=== PATIENT | female | born 1935 | race Caucasian/White ===

== ENCOUNTER → 2016-03-12 | Outpatient (CLI) | payer MEDICARE, OTHER ==
[~2016-03-12] MED LIST: ADALAT CC30 MG PO; APRESOLINE 25MG25 MG PO; ASPIRIN 81M81 MG/TA2 PO; ASPIRIN E.C. 8181 MG PO; CALCARB 600600 MG PO; CALCIUM500 MG PO; CARDI-OMEGA1000 MG PO; CARDIZEM CD 24240 MG PO; CENTRUM CHEWAB1 EACH PO; CENTRUM SILVER1 CTB PO; CENTRUM SILVER1 TA1 PO; CLARITIN 1010 MG/TAB PO; CLARITIN LIQUI-10 MG PO; CLEOCIN HC150 MG/CAP PO; CLEOCIN HCL300 MG PO; COMBIRESP IH; COMPLETE SENIOR1 TA1 PO; CORICCLDFLU PO; COZAAR100 MG PO; DEMADEX 20MG20 M1 PO; DESYREL 50MG50 MG PO; DIGOXIN PO; DOXYCYCLINE 10100 MG PO; FERROUS SU325 MG/TAB PO; FLONASE NASAL S16 GM NS; GABAPENTIN100 MG PO; GLUCOPHAGE1000 MG PO; GLYBURIDE MICRON6 MG PO; GLYNASE PRES-TAB6 MG PO; INSLANT SQ; K-DUR 10 MEQ T10 MEQ PO; KLOR-CON 1010 MEQ PO; LANOXIN 0.120.125 MG PO; LANTUS100 U/ML SC; LANTUS100 U/ML SQ; LASIX 20MG TABL20 MG PO; LASIX40 MG PO; LIDODERM 5% PATC1 EA TP; LIPITOR20 MG PO; LISINOPRIL40 MG PO; LOPID 600M600 MG/TAB PO; LOPID PO; LOPRESSOR100 MG PO; LYRICA 50MG CAP50 MG PO; METFORMIN1000 MG PO; MICARDIS HCT 251 TAB PO; MICARDIS80 MG PO; MOBIC15 MG PO; NEURONTIN100 MG/CAP PO; NEURONTIN300 MG/CAP PO; NOVOLOG 100U100 U/M1 SQ; NOVOLOG FLEX100 U/ML SC; OMEGA-3 FISH1000 MG PO; OYSCO 500500 M1 PO; PERCOCET 325 MG1 TA2 PO; PHILLIPS'311 MG PO; PHILLIPS1 TAB PO; POTASSIUM1 PDS PO; PREDNISONE10 MG PO; PRIL40 PO; PRILOSEC 20MG20 MG PO; PROAIR HFA0.09 MG/AC IH; PROCARDIA XL 3030 MG PO; PROCARDIA XL 6060 MG PO; Procardia XL PO; REFRESH 1 ML1 ML OP; REFRESH LIQUIGE30 ML OP; RESTASIS 60VL OP; RESTASIS0.05% OP; RT ADVAIR 128 DISKUS IH; RT ADVAIR HFA 1112 G IH; SLEEP AID25 M1 PO; ST. JOSEPH81 M2 PO; SYNTHROID0.075 MG/T PO; TEMOVATE0.05% TP; TIAZAC240 MG PO; TOPROL XL100 MG PO; TOPROL XL200 MG PO; ULTRAM 50MG TAB50 MG PO; VITAMIN D 50,1.25 MG PO; VITAMIN D32000 I1 PO; ZANTAC 150MG T150 MG PO; ZAROXOLYN5 MG PO; ZESTRIL40 MG PO; ZOCOR 20MG20 MG PO; ZOCOR20 MG PO; ZYLOPRIM 100MG100 MG PO; ZYRTEC 10MG10 MG PO; ZYRTEC5 MG PO; [UNRECOGNIZED DRUG - OTHER]; [UNRECOGNIZED DRUG - OTHER] OU; [UNRECOGNIZED DRUG - OTHER] PO
[2016-03-12 14:32] LABS: CALCIUM 9.6 mg/dL (8.4-10.2); CREATININE, serum 1.14 mg/dL (0.52-1.25); POTASSIUM 3.9 mmol/L (3.4-5.0)
== END ==
LOC: COL.LAB 13:49
PROVIDERS: Internal Medicine Nephrology
DX: N18.3 Chronic kidney disease, stage 3 (moderate) (principal)

== ENCOUNTER 2016-04-04 02:48 | Inpatient (IN) | payer MEDICARE, OTHER ==
[~2016-04-04] VITALS: Ht 160 cm; Wt 115.4 kg
[2016-04-04] VITALS (824 sets, daily range): BP systolic 103–181; BP diastolic 69–114; PULSE 75–95; TEMP 99.8–101.7; O2SAT 71–100
[~2016-04-04 02:48] MED LIST changes: -APRESOLINE 25MG25 MG PO; -ASPIRIN 81M81 MG/TA2 PO; -CLARITIN LIQUI-10 MG PO; -CLEOCIN HC150 MG/CAP PO; -CLEOCIN HCL300 MG PO; -CORICCLDFLU PO; -COZAAR100 MG PO; -DOXYCYCLINE 10100 MG PO; -KLOR-CON 1010 MEQ PO; -LIDODERM 5% PATC1 EA TP; -LOPRESSOR100 MG PO; -LYRICA 50MG CAP50 MG PO; -MICARDIS80 MG PO; -NEURONTIN300 MG/CAP PO; -NOVOLOG 100U100 U/M1 SQ; -OMEGA-3 FISH1000 MG PO; -PRIL40 PO; -PROAIR HFA0.09 MG/AC IH; -REFRESH LIQUIGE30 ML OP; -RESTASIS 60VL OP; -RT ADVAIR HFA 1112 G IH; -SYNTHROID0.075 MG/T PO; -TEMOVATE0.05% TP; -TOPROL XL200 MG PO; -ULTRAM 50MG TAB50 MG PO; -VITAMIN D 50,1.25 MG PO; -VITAMIN D32000 I1 PO; -ZAROXOLYN5 MG PO; -ZYRTEC5 MG PO
[2016-04-04 05:43] LABS: VENOUS BLOOD GAS BE 1.5 (-4-4)
[2016-04-04 05:44] LABS: VENOUS BLOOD GAS SITE VENIPUNCTURE
[2016-04-04 05:54] LABS: ARTERIAL BLD GAS O2 SATURATION 96.2 % (92-100); ARTERIAL BLD GAS TCO2 CT 25.7; ARTERIAL BLOOD GAS BASE EXCESS 0.7 (-2-2); ARTERIAL BLOOD GAS HCO3 24.6 meq/L (22-26); ARTERIAL BLOOD GAS PO2 82.9 mmHg (80-100); ARTERIAL BLOOD GAS pH 7.44 (7.35-7.45)
[2016-04-04 05:55] LABS: ALLEN TEST YES; ALLENS TEST RESULT PASS; ATS? YES
[2016-04-04 05:55] LABS: HEMATOCRIT 39.4 % (37.0-47.0); MEAN CELL VOLUME 90 fl (80.0-100.0); MEAN CORPUSCULAR HEMOGLOBIN 30 pg (27.0-31.0); MEAN CORPUSCULAR HGB CONC 33 g/dl (33.0-37.0); MEAN PLATELET VOLUME 10.7 fl (7.4-10.4); PLATELET COUNT 147 K/mm3 (130-400); RED BLOOD COUNT 4.36 M/mm3 (4.10-5.30); REDCELL DISTRIBUTION WIDTH-CV 16.2 % (11.5-14.5)
[2016-04-04 06:09] LABS: INR 1.2 (0.8-3.0); PROTHROMBIN TIME 13.6 SECONDS (9.7-12.8)
[2016-04-04 06:10] LABS: ADD PATHOLOGY DIFF REVIEW NO; WHITE BLOOD COUNT 25.1 K/mm3 (4.8-10.8)
[2016-04-04 06:11] LABS: ALANINE AMINOTRANSFERASE 39 U/L (9-52); ALBUMIN 3.7 gm/dL (3.5-5.0); ALKALINE PHOSPHATASE 113 U/L (50-136); ANION GAP 11 mmol/L (7-16); BLOOD UREA NITROGEN 20 mg/dL (7-17); CALCIUM 8.8 mg/dL (8.4-10.2); CARBON DIOXIDE 26 mmol/L (22-30); CHLORIDE 99 mmol/L (98-107); CREATININE, serum 1.19 mg/dL (0.52-1.25); GLUCOSE 287 mg/dL (74-106); POTASSIUM 3.6 mmol/L (3.4-5.0); SODIUM 136 mmol/L (137-145); TOTAL PROTEIN 7.7 gm/dL (6.4-8.2)
[2016-04-04 06:13] LABS: SALICYLATE < 1.0 mg/dL
[2016-04-04 06:26] LABS: BAND 44 % (0-10); NEUTROPHILS 43 % (42.0-75.2); PLATELET ESTIMATE NORMAL (NORMAL); TOTAL CELLS COUNTED 100
[2016-04-04 08:32] LABS: PH 5 (5-8); SQUAMOUS EPITHELIAL 0-2 /hpf; URINE APPEARANCE Hazy; URINE BACTERIA Rare /hpf; URINE BILIRUBIN Negative (NEGATIVE); URINE BLOOD 3+ (NEGATIVE); URINE COLOR Yellow; URINE GLUCOSE 1+ (NEGATIVE); URINE KETONE Negative (NEGATIVE); URINE RBC >50 /hpf; URINE UROBILINOGEN Negative (NEGATIVE); URINE WBC >50 /hpf
[2016-04-04 09:39] LABS: VENOUS BLOOD GAS BE 1.1 (-4-4); VENOUS BLOOD GAS SAO2 74.3 % (60-80)
[2016-04-04 09:40] LABS: VENOUS BLOOD GAS SITE CENTRAL LINE
[2016-04-04 13:53] LABS: VENOUS BLOOD GAS BE 0.9 (-4-4); VENOUS BLOOD GAS SAO2 72.9 % (60-80)
[2016-04-04 13:55] LABS: VENOUS BLOOD GAS SITE CENTRAL LINE
[2016-04-04 17:16] LABS: CEREBROSPINAL TUBE #4; CSF APPEARANCE CLEAR; CSF COLOR COLORLESS
[2016-04-04] MEDS ORDERED: PROAIR HFA0.09 MG/AC IH (17:39)
[2016-04-04] MEDS ORDERED: LIPITOR20 MG PO (17:39)
[2016-04-04] MEDS ORDERED: PRILOSEC 20MG20 MG PO (17:40)
[2016-04-04] MEDS ORDERED: ADALAT CC30 MG PO (17:40)
[2016-04-04] MEDS ORDERED: TEMOVATE0.05% TP (17:41)
[2016-04-04] MEDS ORDERED: OMEGA-3 FISH1000 MG PO (17:41)
[2016-04-04] MEDS ORDERED: SYNTHROID0.075 MG/T PO (17:42)
[2016-04-04] MEDS ORDERED: ZYLOPRIM 100MG100 MG PO (17:42)
[2016-04-04] MEDS ORDERED: LASIX 20MG TABL20 MG PO (17:43)
[2016-04-04] MEDS ORDERED: TOPROL XL100 MG PO (17:43)
[2016-04-04] MEDS ORDERED: RESTASIS 60VL OP (17:44)
[2016-04-04] MEDS ORDERED: REFRESH LIQUIGE30 ML OP (17:45)
[2016-04-04] MEDS ORDERED: ASPIRIN 81M81 MG/TA2 PO (17:45)
[2016-04-04] MEDS ORDERED: LIDODERM 5% PATC1 EA TP (17:45)
[2016-04-04] MEDS ORDERED: NEURONTIN300 MG/CAP PO (17:46)
[2016-04-04] MEDS ORDERED: DESYREL 50MG50 MG PO (17:46)
[2016-04-04] MEDS ORDERED: ULTRAM 50MG TAB50 MG PO (17:47)
[2016-04-04] MEDS ORDERED: APRESOLINE 25MG25 MG PO (17:47)
[2016-04-04] MEDS ORDERED: MICARDIS80 MG PO (17:47)
[2016-04-04] MEDS ORDERED: LANTUS100 U/ML SQ (17:48)
[2016-04-04] MEDS ORDERED: ZYRTEC 10MG10 MG PO (17:48)
[2016-04-04] MEDS ORDERED: NOVOLOG 100U100 U/M1 SQ (17:48)
[2016-04-04 22:34] LABS: CALCIUM 8.3 mg/dL (8.4-10.2); CREATININE, serum 1.32 mg/dL (0.52-1.25); MAGNESIUM 2.1 mg/dL (1.6-2.3); POTASSIUM 3.5 mmol/L (3.4-5.0)
[2016-04-05] VITALS (1027 sets, daily range): BP systolic 134–178; BP diastolic 65–88; PULSE 77–94; TEMP 97.8–99.8; O2SAT 81–100
[2016-04-05 06:43] LABS: MEAN CELL VOLUME 91 fl (80.0-100.0); MEAN CORPUSCULAR HGB CONC 33 g/dl (33.0-37.0); MEAN PLATELET VOLUME 11.5 fl (7.4-10.4); PLATELET COUNT 124 K/mm3 (130-400); RED BLOOD COUNT 3.31 M/mm3 (4.10-5.30); REDCELL DISTRIBUTION WIDTH-CV 16.4 % (11.5-14.5); WHITE BLOOD COUNT 18.1 K/mm3 (4.8-10.8)
[2016-04-05 06:48] LABS: ADJUSTED CALCIUM 9.3 mg/dL (8.4-10.2); ALBUMIN 2.7 gm/dL (3.5-5.0); BILIRUBIN,TOTAL 0.6 mg/dL (0.0-1.0); CALCIUM 8.3 mg/dL (8.4-10.2); CREATININE, serum 1.24 mg/dL (0.52-1.25); MAGNESIUM 2.1 mg/dL (1.6-2.3); POTASSIUM 3.4 mmol/L (3.4-5.0); TOTAL PROTEIN 6.2 gm/dL (6.4-8.2)
[2016-04-05 06:49] LABS: HEMOGLOBIN 9.8 g/dl (12.5-16.0); MEAN CORPUSCULAR HEMOGLOBIN 30 pg (27.0-31.0)
[2016-04-05 06:52] LABS: ADD PATHOLOGY DIFF REVIEW NO
[2016-04-05 07:05] LABS: INR 1.2 (0.8-3.0); PROTHROMBIN TIME 13.3 SECONDS (9.7-12.8)
[2016-04-05 07:53] LABS: ANISOCYTOSIS 1+; BAND 31 % (0-10); OVALOCYTES 1+; PLATELET ESTIMATE DECREASED (NORMAL); POLYCHROMASIA 1+
[2016-04-05 07:54] LABS: HYPOCHROMIA 1+; NEUTROPHILS 50 % (42.0-75.2); TOTAL CELLS COUNTED 100
[2016-04-05 23:17] LABS: PROT-CREAT RATIO, URINE 0.8 (())
[2016-04-06] VITALS (676 sets, daily range): BP systolic 109–177; BP diastolic 69–86; PULSE 62–96; TEMP 97–98.3; O2SAT 80–100
[2016-04-06 05:35] LABS: BASO % 0.3 % (0.0-2.0); EOS # 0.1 (0.0-0.7); EOS % 0.5 % (0-4.0); GRAN % 71.6 % (42.2-75.2); LYMPH % 15.5 % (20.0-51.0); MEAN CELL VOLUME 91 fl (80.0-100.0); MEAN CORPUSCULAR HGB CONC 33 g/dl (33.0-37.0); MEAN PLATELET VOLUME 11.3 fl (7.4-10.4); MONO # 1.5 (0.1-0.6); MONO % 11.7 % (1.7-9.3); PLATELET COUNT 133 K/mm3 (130-400); RED BLOOD COUNT 3.39 M/mm3 (4.10-5.30); REDCELL DISTRIBUTION WIDTH-CV 16.6 % (11.5-14.5); WHITE BLOOD COUNT 12.6 K/mm3 (4.8-10.8)
[2016-04-06 05:48] LABS: INR 1.1 (0.8-3.0); PROTHROMBIN TIME 12.4 SECONDS (9.7-12.8)
[2016-04-06 05:51] LABS: ADJUSTED CALCIUM 9.6 mg/dL (8.4-10.2); ALBUMIN 2.9 gm/dL (3.5-5.0); BILIRUBIN,TOTAL 0.7 mg/dL (0.0-1.0); CALCIUM 8.7 mg/dL (8.4-10.2); CREATININE, serum 1.18 mg/dL (0.52-1.25); TOTAL PROTEIN 6.5 gm/dL (6.4-8.2)
[2016-04-06 06:00] LABS: HEMATOCRIT 30.8 % (37.0-47.0); HEMOGLOBIN 10.1 g/dl (12.5-16.0); MEAN CORPUSCULAR HEMOGLOBIN 30 pg (27.0-31.0)
[2016-04-06 06:43] LABS: C-REACTIVE PROTEIN 12.7 mg/dL (0.0-0.9)
[2016-04-06 14:28] LABS: ALBUMIN FRACTION 2.4 g/dL (2.6-4.5); ALBUMIN PERCENTAGE 45.2 % (48.7-61.8); ALPHA 1 FRACTION 0.4 g/dL (0.3-0.5); ALPHA 1 PERCENTAGE 6.9 % (3.4-8.3); ALPHA 2 FRACTION 0.9 g/dL (0.6-1.2); ALPHA 2 PERCENTAGE 16.2 % (8.4-17.5); BETA 1 FRACTION 0.3 g/dL (0.4-0.6); BETA 1 PERCENTAGE 4.9 % (5.4-8.9); BETA 2 FRACTION 0.5 g/dL (0.2-0.5); BETA 2 PERCENTAGE 8.4 % (3.8-7.7); GAMMA PERCENTAGE 18.4 % (8.1-23.0); SERUM PROTEIN TOTAL 5.4 g/dL (6.0-7.6)
[2016-04-07] VITALS (876 sets, daily range): BP systolic 147–186; BP diastolic 71–99; PULSE 79–94; TEMP 97.8–99.4; O2SAT 70–100
[2016-04-07 05:05] LABS: BASO # 0.1 (0.0-0.2); BASO % 0.5 % (0.0-2.0); EOS # 0.4 (0.0-0.7); EOS % 3.7 % (0-4.0); GRAN # 5.7 (1.4-6.5); GRAN % 52.4 % (42.2-75.2); LYMPH # 3.4 (1.2-3.4); LYMPH % 30.9 % (20.0-51.0); MEAN CELL VOLUME 90 fl (80.0-100.0); MEAN CORPUSCULAR HGB CONC 33 g/dl (33.0-37.0); MEAN PLATELET VOLUME 10.8 fl (7.4-10.4); MONO # 1.2 (0.1-0.6); PLATELET COUNT 136 K/mm3 (130-400); RED BLOOD COUNT 3.52 M/mm3 (4.10-5.30); REDCELL DISTRIBUTION WIDTH-CV 16.6 % (11.5-14.5); WHITE BLOOD COUNT 10.9 K/mm3 (4.8-10.8)
[2016-04-07 05:06] LABS: HEMATOCRIT 31.8 % (37.0-47.0); HEMOGLOBIN 10.5 g/dl (12.5-16.0); MEAN CORPUSCULAR HEMOGLOBIN 30 pg (27.0-31.0)
[2016-04-07 05:09] LABS: PROTHROMBIN TIME 11.4 SECONDS (9.7-12.8)
[2016-04-07 05:15] LABS: ADJUSTED CALCIUM 9.7 mg/dL (8.4-10.2); ALBUMIN 2.9 gm/dL (3.5-5.0); BILIRUBIN,TOTAL 0.7 mg/dL (0.0-1.0); CALCIUM 8.8 mg/dL (8.4-10.2); CREATININE, serum 0.99 mg/dL (0.52-1.25); POTASSIUM 3.6 mmol/L (3.4-5.0); TOTAL PROTEIN 6.3 gm/dL (6.4-8.2)
[2016-04-08 04:38] VITALS: BP 188/95; PULSE 86; TEMP 98.6
[2016-04-08 06:13] LABS: MEAN CELL VOLUME 91 fl (80.0-100.0); MEAN CORPUSCULAR HGB CONC 33 g/dl (33.0-37.0); MEAN PLATELET VOLUME 10.9 fl (7.4-10.4); PLATELET COUNT 169 K/mm3 (130-400); RED BLOOD COUNT 3.73 M/mm3 (4.10-5.30); REDCELL DISTRIBUTION WIDTH-CV 15.9 % (11.5-14.5); WHITE BLOOD COUNT 11.3 K/mm3 (4.8-10.8)
[2016-04-08 06:25] LABS: CALCIUM 8.9 mg/dL (8.4-10.2); CREATININE, serum 0.89 mg/dL (0.52-1.25); HEMATOCRIT 33.8 % (37.0-47.0); HEMOGLOBIN 11.2 g/dl (12.5-16.0); MEAN CORPUSCULAR HEMOGLOBIN 30 pg (27.0-31.0); POTASSIUM 3.6 mmol/L (3.4-5.0)
[2016-04-08 06:26] LABS: ADD PATHOLOGY DIFF REVIEW NO
[2016-04-08 07:08] LABS: BAND 5 % (0-10); BASOPHIL 1 % (0-2); EOSINOPHIL 4 % (0-4); MYELOCYTE 1 % (0-0); NEUTROPHILS 48 % (42.0-75.2); PLATELET ESTIMATE NORMAL (NORMAL); TOTAL CELLS COUNTED 100
[2016-04-08 09:03] VITALS: BP 183/96; PULSE 91; TEMP 98.2
[2016-04-08 11:34] VITALS: BP 184/76; PULSE 87
[2016-04-08 16:00] VITALS: BP 189/76; PULSE 99; TEMP 98.4
[2016-04-08 19:34] VITALS: BP 162/93; BP 192/84; PULSE 101; TEMP 98.8
[2016-04-09 06:04] VITALS: BP 171/65; PULSE 87; TEMP 97.6
[2016-04-09 06:06] VITALS: BP 152/50; PULSE 78; TEMP 98.8
[2016-04-09 07:55] LABS: MEAN CELL VOLUME 89 fl (80.0-100.0); MEAN CORPUSCULAR HGB CONC 33 g/dl (33.0-37.0); MEAN PLATELET VOLUME 10.9 fl (7.4-10.4); PLATELET COUNT 194 K/mm3 (130-400); RED BLOOD COUNT 3.67 M/mm3 (4.10-5.30); REDCELL DISTRIBUTION WIDTH-CV 15.9 % (11.5-14.5); WHITE BLOOD COUNT 14.5 K/mm3 (4.8-10.8)
[2016-04-09 07:56] LABS: HEMATOCRIT 32.6 % (37.0-47.0); HEMOGLOBIN 10.9 g/dl (12.5-16.0); MEAN CORPUSCULAR HEMOGLOBIN 30 pg (27.0-31.0)
[2016-04-09 07:57] LABS: ADD PATHOLOGY DIFF REVIEW NO
[2016-04-09 08:07] LABS: CREATININE, serum 0.84 mg/dL (0.52-1.25); POTASSIUM 3.5 mmol/L (3.4-5.0)
[2016-04-09 08:09] LABS: BAND 6 % (0-10); EOSINOPHIL 6 % (0-4); NEUTROPHILS 39 % (42.0-75.2); PLATELET ESTIMATE NORMAL (NORMAL); TOTAL CELLS COUNTED 100
[2016-04-09 11:58] VITALS: BP 149/63; PULSE 73; TEMP 98
[2016-04-09 14:38] LABS: WEST NILE VIRUS IGG PCR CSF Negative (Negative)
[2016-04-09 16:57] VITALS: BP 155/77; PULSE 85; TEMP 98.3
[2016-04-09 20:58] VITALS: BP 160/72; PULSE 97; TEMP 98.8
[2016-04-09 23:23] LABS: HOURS 24 Hr (()); VOLUME 2350 mL (())
[2016-04-10 00:14] VITALS: BP 157/69; PULSE 69; TEMP 97.5
[2016-04-10 04:47] VITALS: BP 150/75; PULSE 68; TEMP 98.5
[2016-04-10 07:15] LABS: MEAN CELL VOLUME 89 fl (80.0-100.0); MEAN CORPUSCULAR HGB CONC 34 g/dl (33.0-37.0); MEAN PLATELET VOLUME 11.2 fl (7.4-10.4); PLATELET COUNT 220 K/mm3 (130-400); RED BLOOD COUNT 3.69 M/mm3 (4.10-5.30); REDCELL DISTRIBUTION WIDTH-CV 16.1 % (11.5-14.5); WHITE BLOOD COUNT 15.9 K/mm3 (4.8-10.8)
[2016-04-10 07:28] LABS: ADD PATHOLOGY DIFF REVIEW NO; HEMATOCRIT 32.8 % (37.0-47.0); MEAN CORPUSCULAR HEMOGLOBIN 30 pg (27.0-31.0)
[2016-04-10 07:54] VITALS: BP 161/63; PULSE 78; TEMP 98.3
[2016-04-10 09:01] LABS: BAND 9 % (0-10); BASOPHIL 1 % (0-2); EOSINOPHIL 5 % (0-4); NEUTROPHILS 43 % (42.0-75.2); TOTAL CELLS COUNTED 100
[2016-04-10 09:02] LABS: PLATELET ESTIMATE NORMAL (NORMAL)
[2016-04-10 10:56] LABS: PH 7 (5-8); URINE APPEARANCE Clear; URINE BACTERIA None Seen /hpf; URINE BILIRUBIN Negative (NEGATIVE); URINE BLOOD 1+ (NEGATIVE); URINE COLOR Yellow; URINE GLUCOSE Negative (NEGATIVE); URINE KETONE Negative (NEGATIVE); URINE UROBILINOGEN Negative (NEGATIVE); URINE WBC 0-2 /hpf
[2016-04-10] MEDS ORDERED: DESYREL 50MG50 MG PO (11:21)
[2016-04-10 11:57] VITALS: BP 149/52; PULSE 71; TEMP 98.3
[2016-04-10 17:32] VITALS: BP 155/70; PULSE 77; TEMP 98.4
[2016-04-10 20:33] VITALS: BP 157/61; PULSE 79; TEMP 97.5
[2016-04-11 00:22] VITALS: BP 155/74; PULSE 84; TEMP 98.6
[2016-04-11 06:04] VITALS: BP 154/62; PULSE 64; TEMP 97.5
[2016-04-11 07:22] LABS: HEMATOCRIT 32.1 % (37.0-47.0); HEMOGLOBIN 10.6 g/dl (12.5-16.0); MEAN CELL VOLUME 90 fl (80.0-100.0); MEAN CORPUSCULAR HEMOGLOBIN 30 pg (27.0-31.0); MEAN CORPUSCULAR HGB CONC 33 g/dl (33.0-37.0); MEAN PLATELET VOLUME 11.3 fl (7.4-10.4); PLATELET COUNT 224 K/mm3 (130-400); RED BLOOD COUNT 3.57 M/mm3 (4.10-5.30); REDCELL DISTRIBUTION WIDTH-CV 15.8 % (11.5-14.5); WHITE BLOOD COUNT 12.4 K/mm3 (4.8-10.8)
[2016-04-11 07:23] LABS: ADD PATHOLOGY DIFF REVIEW NO
[2016-04-11 07:31] LABS: CALCIUM 8.9 mg/dL (8.4-10.2); CREATININE, serum 0.93 mg/dL (0.52-1.25); POTASSIUM 3.7 mmol/L (3.4-5.0)
[2016-04-11 07:33] VITALS: BP 154/55; PULSE 73; TEMP 98.2
[2016-04-11 08:46] LABS: BAND 6 % (0-10); EOSINOPHIL 5 % (0-4); METAMYELOCYTE 2 % (0-0); NEUTROPHILS 42 % (42.0-75.2); TOTAL CELLS COUNTED 100
[2016-04-11] MEDS ORDERED: CLEOCIN HCL300 MG PO (11:17)
[2016-04-11] MEDS ORDERED: LOPRESSOR100 MG PO (11:18)
[2016-04-11] MEDS ORDERED: PROCARDIA XL 6060 MG PO (11:18)
[2016-04-11] MEDS ORDERED: COZAAR100 MG PO (11:19)
[2016-04-11] MEDS ORDERED: LYRICA 50MG CAP50 MG PO (11:21)
[2016-04-11 13:34] VITALS: BP 140/47; PULSE 72; TEMP 98.1
[2016-04-11 14:06] LABS: URINE ALPHA 1 % 11.9 % (()); URINE ALPHA 2 % 9.6 % (()); URINE BETA % 12.5 % (()); URINE GAMMA % 17.5 % (())
[2016-04-11 16:24] VITALS: BP 158/67; PULSE 77; TEMP 98.1
[2016-04-20 10:18] LABS: KAPPA FREE LIGHT CHAIN-URINE 4.8 (()); LAMBDA FREE LIGHT CHAIN-URINE 1.92 (())
== END 2016-04-11 17:24 | DRG 872 ==
LOC: IMCU 02:48 → ICU 03:55 → MEDICAL 04-07 14:55
PROVIDERS: Anesthesiology Critical Care Medicine; Internal Medicine; Internal Medicine Infectious Disease; Internal Medicine Nephrology; Physician Assistant; Psychiatry & Neurology Neurology
PROC: 009U3ZX Drainage of Spinal Canal, Percutaneous Approach, Diagnostic (ICD-10-PCS; principal; 2016-04-04)
DX: A41.9 Sepsis, unspecified organism (principal); L03.115 Cellulitis of right lower limb; L03.116 Cellulitis of left lower limb; Z68.41 Body mass index [BMI] 40.0-44.9, adult; N17.9 Acute kidney failure, unspecified; N39.0 Urinary tract infection, site not specified; I16.0 Hypertensive urgency; I12.9 Hypertensive chronic kidney disease with stage 1 through stage 4 chronic kidney disease, or unspecified chronic kidney disease; E11.22 Type 2 diabetes mellitus with diabetic chronic kidney disease; N18.3 Chronic kidney disease, stage 3 (moderate); J44.9 Chronic obstructive pulmonary disease, unspecified; E11.65 Type 2 diabetes mellitus with hyperglycemia; E11.42 Type 2 diabetes mellitus with diabetic polyneuropathy; E66.01 Morbid (severe) obesity due to excess calories; I27.2 Other secondary pulmonary hypertension; G47.33 Obstructive sleep apnea (adult) (pediatric); I87.8 Other specified disorders of veins
CPT/HCPCS: 99223-AI; 99232-AI; 99233-AI; 99239; A9503; A9585; C1751; J0360; J0696; J1170; J1644; J1720; J1815; J1885; J1956; J2060; J2405; J3370; J3480; J7030; J7050

== ENCOUNTER 2016-04-11 16:25 | Inpatient (IN) | payer MEDICARE, OTHER ==
[~2016-04-11] VITALS: Ht 160 cm; Wt 111.3 kg
[~2016-04-11 16:25] MED LIST changes: +APRESOLINE 25MG25 MG PO; +ASPIRIN 81M81 MG/TA2 PO; +CLEOCIN HCL300 MG PO; +COZAAR100 MG PO; +LIDODERM 5% PATC1 EA TP; +LOPRESSOR100 MG PO; +LYRICA 50MG CAP50 MG PO; +MICARDIS80 MG PO; +NEURONTIN300 MG/CAP PO; +NOVOLOG 100U100 U/M1 SQ; +OMEGA-3 FISH1000 MG PO; +PROAIR HFA0.09 MG/AC IH; +REFRESH LIQUIGE30 ML OP; +RESTASIS 60VL OP; +SYNTHROID0.075 MG/T PO; +TEMOVATE0.05% TP; +ULTRAM 50MG TAB50 MG PO
[2016-04-11 18:14] VITALS: BP 158/67; PULSE 77; TEMP 98.1
[2016-04-12 04:45] VITALS: BP 135/47; PULSE 63; TEMP 97.1
[2016-04-12 16:31] VITALS: BP 145/50; PULSE 66; TEMP 98.7
[2016-04-13 06:03] VITALS: BP 128/65; PULSE 63; TEMP 98
[2016-04-14 04:12] VITALS: BP 146/56; PULSE 76; TEMP 97.5
[2016-04-14 16:55] VITALS: BP 141/61; PULSE 77; TEMP 98.9
[2016-04-15 05:04] VITALS: BP 129/41; PULSE 63; TEMP 98.2
[2016-04-15 19:55] VITALS: BP 141/61; PULSE 79; TEMP 97.5
[2016-04-16 04:54] VITALS: BP 134/52; PULSE 74; TEMP 98.2
[2016-04-16 08:06] LABS: BASO # 0.1 (0.0-0.2); BASO % 0.8 % (0.0-2.0); EOS # 0.4 (0.0-0.7); EOS % 4.1 % (0-4.0); GRAN # 4.4 (1.4-6.5); GRAN % 46.4 % (42.2-75.2); LYMPH # 3.6 (1.2-3.4); LYMPH % 37.5 % (20.0-51.0); MEAN CELL VOLUME 93 fl (80.0-100.0); MEAN CORPUSCULAR HGB CONC 32 g/dl (33.0-37.0); MEAN PLATELET VOLUME 11.3 fl (7.4-10.4); MONO % 10.8 % (1.7-9.3); PLATELET COUNT 268 K/mm3 (130-400); RED BLOOD COUNT 3.66 M/mm3 (4.10-5.30); REDCELL DISTRIBUTION WIDTH-CV 15.6 % (11.5-14.5); WHITE BLOOD COUNT 9.6 K/mm3 (4.8-10.8)
[2016-04-16 08:11] LABS: HEMATOCRIT 34.1 % (37.0-47.0); HEMOGLOBIN 10.9 g/dl (12.5-16.0); MEAN CORPUSCULAR HEMOGLOBIN 30 pg (27.0-31.0)
[2016-04-16 08:53] LABS: CALCIUM 9.6 mg/dL (8.4-10.2); CREATININE, serum 1.27 mg/dL (0.52-1.25); POTASSIUM 4.1 mmol/L (3.4-5.0)
[2016-04-16 16:27] VITALS: BP 151/57; PULSE 79; TEMP 98.1
[2016-04-17 06:16] VITALS: BP 134/51; PULSE 68; TEMP 97.7
[2016-04-17 16:31] VITALS: BP 120/95; PULSE 58; TEMP 97.5
[2016-04-18 05:27] VITALS: BP 101/74; PULSE 75; TEMP 98.2
[2016-04-18 15:32] VITALS: BP 141/50; PULSE 76; TEMP 97.5
[2016-04-19 06:12] VITALS: BP 139/51; PULSE 56; TEMP 97.6
[2016-04-19 13:07] VITALS: BP 105/72; PULSE 59
[2016-04-19 16:42] VITALS: BP 116/94; PULSE 74; TEMP 97.6
[2016-04-20 04:25] VITALS: BP 127/43; PULSE 66; TEMP 98.5
[2016-04-20 16:10] VITALS: BP 148/45; PULSE 60; TEMP 97.6
== END 2016-04-20 16:51 | disposition home or self-care (01) | DRG 947 ==
PROVIDERS: Internal Medicine
DX: R53.81 Other malaise (principal); A41.9 Sepsis, unspecified organism; Z68.41 Body mass index [BMI] 40.0-44.9, adult; L03.116 Cellulitis of left lower limb; L03.115 Cellulitis of right lower limb; E66.01 Morbid (severe) obesity due to excess calories; J44.9 Chronic obstructive pulmonary disease, unspecified; I12.9 Hypertensive chronic kidney disease with stage 1 through stage 4 chronic kidney disease, or unspecified chronic kidney disease; E11.22 Type 2 diabetes mellitus with diabetic chronic kidney disease; N18.9 Chronic kidney disease, unspecified
CPT/HCPCS: 99222-AI; 99232-AI; 99239; J1644; J1650; J1815

== ENCOUNTER 2016-04-22 15:09 | Inpatient (IN) | payer MEDICARE, OTHER ==
[~2016-04-22] VITALS: Ht 160 cm; Wt 114.9 kg
[2016-04-22] MEDS ORDERED: RT ADVAIR HFA 1112 G IH (15:51)
[2016-04-22] MEDS ORDERED: TOPROL XL100 MG PO (15:55)
[2016-04-22] MEDS ORDERED: COMPLETE SENIOR1 TA1 PO ×2 (16:03→16:04)
[2016-04-22] MEDS ORDERED: CORICCLDFLU PO (16:04)
[2016-04-22] MEDS ORDERED: PHILLIPS'311 MG PO (16:05)
[2016-04-22 16:12] LABS: BASO # 0.1 (0.0-0.2); BASO % 0.9 % (0.0-2.0); EOS # 0.1 (0.0-0.7); EOS % 1.1 % (0-4.0); GRAN # 7.9 (1.4-6.5); LYMPH # 0.9 (1.2-3.4); LYMPH % 9.1 % (20.0-51.0); MEAN CELL VOLUME 92 fl (80.0-100.0); MEAN CORPUSCULAR HGB CONC 32 g/dl (33.0-37.0); MEAN PLATELET VOLUME 11.1 fl (7.4-10.4); MONO # 0.7 (0.1-0.6); MONO % 6.7 % (1.7-9.3); PLATELET COUNT 244 K/mm3 (130-400); RED BLOOD COUNT 3.99 M/mm3 (4.10-5.30); REDCELL DISTRIBUTION WIDTH-CV 15.3 % (11.5-14.5); WHITE BLOOD COUNT 9.7 K/mm3 (4.8-10.8)
[2016-04-22 16:15] LABS: HEMATOCRIT 36.8 % (37.0-47.0); HEMOGLOBIN 11.9 g/dl (12.5-16.0); MEAN CORPUSCULAR HEMOGLOBIN 30 pg (27.0-31.0)
[2016-04-22 16:25] LABS: INFLUENZA B NEGATIVE
[2016-04-22 16:46] LABS: ADJUSTED CALCIUM 9.7 mg/dL (8.4-10.2); ALANINE AMINOTRANSFERASE 26 U/L (9-52); ALBUMIN 4.1 gm/dL (3.5-5.0); ALKALINE PHOSPHATASE 122 U/L (50-136); ANION GAP 14 mmol/L (7-16); BILIRUBIN,TOTAL 0.9 mg/dL (0.0-1.0); BLOOD UREA NITROGEN 51 mg/dL (7-17); CALCIUM 9.8 mg/dL (8.4-10.2); CARBON DIOXIDE 26 mmol/L (22-30); CHLORIDE 101 mmol/L (98-107); CREATININE, serum 1.31 mg/dL (0.52-1.25); GLUCOSE 138 mg/dL (74-106); POTASSIUM 4.9 mmol/L (3.4-5.0); SODIUM 141 mmol/L (137-145); TOTAL PROTEIN 8.9 gm/dL (6.4-8.2)
[2016-04-22 16:47] LABS: C-REACTIVE PROTEIN < 0.5 mg/dL (0.0-0.9)
[2016-04-22 16:58] LABS: PH 6 (5-8); SQUAMOUS EPITHELIAL 0-2 /hpf; URINE APPEARANCE Clear; URINE BACTERIA None Seen /hpf; URINE BILIRUBIN Negative (NEGATIVE); URINE BLOOD 2+ (NEGATIVE); URINE COLOR Yellow; URINE GLUCOSE Negative (NEGATIVE); URINE KETONE Negative (NEGATIVE); URINE RBC 20-50 /hpf; URINE UROBILINOGEN Negative (NEGATIVE); URINE WBC 0-2 /hpf
[2016-04-22 18:18] VITALS: BP 141/59; PULSE 80; TEMP 99.9
[2016-04-22 20:20] LABS: B-TYPE NATRIURETIC PEPTIDE 323 pg/mL (0-450)
[2016-04-22 20:40] VITALS: BP 140/48; PULSE 77; TEMP 100.9
[2016-04-22] MEDS ORDERED: NEURONTIN300 MG/CAP PO (21:33)
[2016-04-23] VITALS (8 sets, daily range): BP systolic 91–154; BP diastolic 46–78; PULSE 64–87; TEMP 98.4–100
[2016-04-23 07:25] LABS: CALCIUM 9.1 mg/dL (8.4-10.2); CREATININE, serum 1.02 mg/dL (0.52-1.25); POTASSIUM 4.2 mmol/L (3.4-5.0)
[2016-04-23 07:39] LABS: BASO # 0.1 (0.0-0.2); EOS % 0.2 % (0-4.0); GRAN # 3.9 (1.4-6.5); GRAN % 63.4 % (42.2-75.2); HEMATOCRIT 35.7 % (37.0-47.0); HEMOGLOBIN 11.6 g/dl (12.5-16.0); LYMPH # 1.4 (1.2-3.4); LYMPH % 23.3 % (20.0-51.0); MEAN CELL VOLUME 92 fl (80.0-100.0); MEAN CORPUSCULAR HEMOGLOBIN 30 pg (27.0-31.0); MEAN CORPUSCULAR HGB CONC 33 g/dl (33.0-37.0); MEAN PLATELET VOLUME 11.7 fl (7.4-10.4); MONO # 0.7 (0.1-0.6); MONO % 11.6 % (1.7-9.3); PLATELET COUNT 189 K/mm3 (130-400); RED BLOOD COUNT 3.89 M/mm3 (4.10-5.30); REDCELL DISTRIBUTION WIDTH-CV 15.3 % (11.5-14.5); WHITE BLOOD COUNT 6.1 K/mm3 (4.8-10.8)
[2016-04-24 04:10] VITALS: BP 145/46; PULSE 73; TEMP 93.8
[2016-04-24 07:32] VITALS: BP 143/59; PULSE 66; TEMP 97.9
[2016-04-24 11:59] VITALS: BP 155/66; PULSE 79; TEMP 97.2
[2016-04-24 16:10] VITALS: BP 150/48; PULSE 83; TEMP 98.4
[2016-04-24 19:17] VITALS: BP 150/66; PULSE 79; TEMP 97.9
[2016-04-24 22:35] VITALS: BP 149/52; PULSE 67; TEMP 98.3
[2016-04-25] VITALS (10 sets, daily range): BP systolic 147–173; BP diastolic 55–83; PULSE 63–87; TEMP 97.9–98.6
[2016-04-26 01:32] VITALS: BP 168/63; PULSE 68; TEMP 98.1
[2016-04-26 05:42] VITALS: BP 171/67; PULSE 78; TEMP 97.5
[2016-04-26 08:43] VITALS: BP 148/56; PULSE 66; TEMP 97.5
[2016-04-26 11:57] VITALS: BP 119/81; PULSE 66; TEMP 98
== END 2016-04-26 13:45 | disposition home or self-care (01) | DRG 864 ==
LOC: COL.ER 15:09 → MEDICAL 17:39
PROVIDERS: Emergency Medicine; Nurse Practitioner Family
DX: R50.9 Fever, unspecified (principal); Z68.42 Body mass index [BMI] 45.0-49.9, adult; N17.9 Acute kidney failure, unspecified; E66.01 Morbid (severe) obesity due to excess calories; I83.015 Varicose veins of right lower extremity with ulcer other part of foot; J44.9 Chronic obstructive pulmonary disease, unspecified; I12.9 Hypertensive chronic kidney disease with stage 1 through stage 4 chronic kidney disease, or unspecified chronic kidney disease; E11.22 Type 2 diabetes mellitus with diabetic chronic kidney disease; N18.9 Chronic kidney disease, unspecified; Z79.4 Long term (current) use of insulin; E86.0 Dehydration; D63.1 Anemia in chronic kidney disease
CPT/HCPCS: 99223-AI; 99232-AI; 99233-AI; 99239; J0692; J1644; J1815; J2704; J3370; J7030; J7050

== ENCOUNTER → 2016-06-06 | Outpatient (CLI) | payer MEDICARE, OTHER ==
[~2016-06-06] MED LIST changes: +CLARITIN LIQUI-10 MG PO; +CLEOCIN HC150 MG/CAP PO; +CORICCLDFLU PO; +DOXYCYCLINE 10100 MG PO; +KLOR-CON 1010 MEQ PO; +PRIL40 PO; +RT ADVAIR HFA 1112 G IH; +TOPROL XL200 MG PO; +VITAMIN D 50,1.25 MG PO; +VITAMIN D32000 I1 PO; +ZAROXOLYN5 MG PO; +ZYRTEC5 MG PO
== END ==
LOC: COL.LAB 15:37
DX: Z53.9 Procedure and treatment not carried out, unspecified reason (principal)

== ENCOUNTER 2016-06-23 15:05 | Emergency (ER) | payer MEDICARE, OTHER ==
[~2016-06-23] VITALS: Ht 160 cm; Wt 109.1 kg
[~2016-06-23 15:05] MED LIST changes: -CLARITIN LIQUI-10 MG PO; -CLEOCIN HC150 MG/CAP PO; -DOXYCYCLINE 10100 MG PO; -KLOR-CON 1010 MEQ PO; -PRIL40 PO; -TOPROL XL200 MG PO; -VITAMIN D 50,1.25 MG PO; -VITAMIN D32000 I1 PO; -ZAROXOLYN5 MG PO; -ZYRTEC5 MG PO
[2016-06-23 15:06] VITALS: TEMP 98.2
[2016-06-23 16:10] LABS: BASO # 0.1 (0.0-0.2); BASO % 0.3 % (0.0-2.0); EOS # 0.2 (0.0-0.7); EOS % 1.2 % (0-4.0); GRAN # 11.9 (1.4-6.5); GRAN % 69.2 % (42.2-75.2); LYMPH # 3.3 (1.2-3.4); LYMPH % 18.9 % (20.0-51.0); MEAN CELL VOLUME 91 fl (80.0-100.0); MEAN CORPUSCULAR HGB CONC 33 g/dl (33.0-37.0); MEAN PLATELET VOLUME 10.9 fl (7.4-10.4); MONO # 1.7 (0.1-0.6); MONO % 10.1 % (1.7-9.3); PLATELET COUNT 178 K/mm3 (130-400); RED BLOOD COUNT 3.84 M/mm3 (4.10-5.30); REDCELL DISTRIBUTION WIDTH-CV 17.1 % (11.5-14.5); WHITE BLOOD COUNT 17.2 K/mm3 (4.8-10.8)
[2016-06-23 16:19] LABS: ADJUSTED CALCIUM 9.2 mg/dL (8.4-10.2); ALBUMIN 4.1 gm/dL (3.5-5.0); BILIRUBIN,TOTAL 0.9 mg/dL (0.0-1.0); C-REACTIVE PROTEIN 8.5 mg/dL (0.0-0.9); CALCIUM 9.3 mg/dL (8.4-10.2); CREATININE, serum 2.01 mg/dL (0.52-1.25); POTASSIUM 4.7 mmol/L (3.4-5.0)
[2016-06-23 16:20] LABS: HEMATOCRIT 34.8 % (37.0-47.0); HEMOGLOBIN 11.5 g/dl (12.5-16.0); MEAN CORPUSCULAR HEMOGLOBIN 30 pg (27.0-31.0)
[2016-06-23 17:05] VITALS: BP 136/58; PULSE 80
[2016-06-23] MEDS ORDERED: CLEOCIN HCL300 MG PO (17:24)
== END 2016-06-23 17:05 | disposition home or self-care (01) ==
LOC: COL.ER 15:05
PROVIDERS: Family Medicine
DX: L03.115 Cellulitis of right lower limb (principal); E11.22 Type 2 diabetes mellitus with diabetic chronic kidney disease; N18.9 Chronic kidney disease, unspecified; Z86.718 Personal history of other venous thrombosis and embolism; Z79.82 Long term (current) use of aspirin; Z79.4 Long term (current) use of insulin

== ENCOUNTER → 2016-07-13 | Outpatient (CLI) | payer MEDICARE, OTHER ==
[~2016-07-13] MED LIST changes: +CLARITIN LIQUI-10 MG PO; +CLEOCIN HC150 MG/CAP PO; +DOXYCYCLINE 10100 MG PO; +KLOR-CON 1010 MEQ PO; +PRIL40 PO; +TOPROL XL200 MG PO; +VITAMIN D 50,1.25 MG PO; +VITAMIN D32000 I1 PO; +ZAROXOLYN5 MG PO; +ZYRTEC5 MG PO
== END ==
LOC: MHCPAIN 11:25
DX: G89.29 Other chronic pain (principal); M47.817 Spondylosis without myelopathy or radiculopathy, lumbosacral region; M53.3 Sacrococcygeal disorders, not elsewhere classified; M50.90 Cervical disc disorder, unspecified, unspecified cervical region; M41.9 Scoliosis, unspecified
CPT/HCPCS: G0463

== ENCOUNTER → 2016-08-02 | Outpatient (REF) ==
[2016-08-02 13:54] LABS: CALCIUM 8.5 mg/dL (8.4-10.2); CREATININE, serum 1.49 mg/dL (0.52-1.25); POTASSIUM 3.8 mmol/L (3.4-5.0)
== END ==
LOC: ZMSC 12:47
PROVIDERS: Internal Medicine Nephrology
DX: Z01.89 Encounter for other specified special examinations (principal)

== ENCOUNTER → 2016-08-13 | Outpatient (CLI) | payer MEDICARE, OTHER ==
[2016-08-13 16:19] LABS: CALCIUM 8.7 mg/dL (8.4-10.2); CREATININE, serum 1.92 mg/dL (0.52-1.25); POTASSIUM 4.2 mmol/L (3.4-5.0)
== END ==
LOC: COL.LAB 14:53
PROVIDERS: Internal Medicine Pulmonary Disease
DX: I27.2 Other secondary pulmonary hypertension (principal)
CPT/HCPCS: J1644

== ENCOUNTER 2016-08-28 04:43 | Inpatient (IN) | payer MEDICARE, OTHER ==
[~2016-08-28] VITALS: Ht 160 cm; Wt 118.2 kg
[~2016-08-28 04:43] MED LIST changes: -CLARITIN LIQUI-10 MG PO; -CLEOCIN HC150 MG/CAP PO; -DOXYCYCLINE 10100 MG PO; -KLOR-CON 1010 MEQ PO; -PRIL40 PO; -TOPROL XL200 MG PO; -VITAMIN D 50,1.25 MG PO; -VITAMIN D32000 I1 PO; -ZAROXOLYN5 MG PO; -ZYRTEC5 MG PO
[2016-08-28 06:05] VITALS: BP 109/56; PULSE 73; TEMP 98.7
[2016-08-28] MEDS ORDERED: NEURONTIN300 MG/CAP PO (08:22)
[2016-08-28] MEDS ORDERED: VITAMIN D 50,1.25 MG PO (08:29)
[2016-08-28] MEDS ORDERED: ZAROXOLYN5 MG PO (08:29)
[2016-08-28] MEDS ORDERED: KLOR-CON 1010 MEQ PO (08:30)
[2016-08-28 09:05] LABS: MEAN CELL VOLUME 94 fl (80.0-100.0); MEAN CORPUSCULAR HGB CONC 33 g/dl (33.0-37.0); MEAN PLATELET VOLUME 11.5 fl (7.4-10.4); PLATELET COUNT 141 K/mm3 (130-400); RED BLOOD COUNT 3.63 M/mm3 (4.10-5.30); REDCELL DISTRIBUTION WIDTH-CV 15.4 % (11.5-14.5)
[2016-08-28 09:08] LABS: HEMATOCRIT 34.1 % (37.0-47.0); HEMOGLOBIN 11.2 g/dl (12.5-16.0); MEAN CORPUSCULAR HEMOGLOBIN 31 pg (27.0-31.0); WHITE BLOOD COUNT 23.2 K/mm3 (4.8-10.8)
[2016-08-28 09:09] LABS: ADD PATHOLOGY DIFF REVIEW NO
[2016-08-28 09:14] LABS: CALCIUM 9.1 mg/dL (8.4-10.2); CREATININE, serum 2.28 mg/dL (0.52-1.25); POTASSIUM 4.2 mmol/L (3.4-5.0)
[2016-08-28 09:50] LABS: BAND 21 % (0-10); NEUTROPHILS 72 % (42.0-75.2); TOTAL CELLS COUNTED 100
[2016-08-28 09:51] LABS: PLATELET ESTIMATE DECREASED (NORMAL)
[2016-08-28 11:36] VITALS: BP 133/98; PULSE 67; TEMP 98.9
[2016-08-28] MEDS ORDERED: PROCARDIA XL 3030 MG PO (14:42)
[2016-08-28 15:31] VITALS: BP 154/60; PULSE 76; TEMP 97.8
[2016-08-28 18:41] LABS: ARTERIAL BLD GAS O2 SATURATION 96.3 % (92-100); ARTERIAL BLD GAS TCO2 CT 41.4; ARTERIAL BLOOD GAS BASE EXCESS 15.4 (-2-2); ARTERIAL BLOOD GAS HCO3 39.9 meq/L (22-26); ARTERIAL BLOOD GAS PHT 7.54 C (7.35-7.45); ARTERIAL BLOOD GAS PO2 84.7 mmHg (80-100); ARTERIAL BLOOD GAS PO2T 84.7 (80-100); ARTERIAL BLOOD GAS pH 7.54 (7.35-7.45); OXYHEMOGLOBIN 95.5 %
[2016-08-28 18:42] LABS: ALLEN TEST YES; ALLENS TEST RESULT PASS; ATS? YES
[2016-08-28 21:33] VITALS: BP 167/78; PULSE 83; TEMP 98.6
[2016-08-29] VITALS: BP 158/85; PULSE 88; TEMP 98.8
[2016-08-29 02:56] VITALS: BP 162/70; PULSE 73; TEMP 98.6
[2016-08-29 02:58] LABS: PH 7 (5-8); SQUAMOUS EPITHELIAL None Seen /hpf; URINE APPEARANCE Clear; URINE BACTERIA None Seen /hpf; URINE BILIRUBIN Negative (NEGATIVE); URINE BLOOD 1+ (NEGATIVE); URINE COLOR Straw; URINE GLUCOSE Negative (NEGATIVE); URINE KETONE Negative (NEGATIVE); URINE UROBILINOGEN Negative (NEGATIVE)
[2016-08-29 07:54] VITALS: BP 132/55; PULSE 61; TEMP 99.3
[2016-08-29 08:57] LABS: BASO # 0.1 (0.0-0.2); BASO % 0.3 % (0.0-2.0); GRAN # 13.3 (1.4-6.5); GRAN % 82.2 % (42.2-75.2); HEMATOCRIT 36.3 % (37.0-47.0); HEMOGLOBIN 11.9 g/dl (12.5-16.0); LYMPH # 1.8 (1.2-3.4); LYMPH % 11.1 % (20.0-51.0); MEAN CELL VOLUME 95 fl (80.0-100.0); MEAN CORPUSCULAR HEMOGLOBIN 31 pg (27.0-31.0); MEAN CORPUSCULAR HGB CONC 33 g/dl (33.0-37.0); MEAN PLATELET VOLUME 12.3 fl (7.4-10.4); MONO % 5.8 % (1.7-9.3); PLATELET COUNT 150 K/mm3 (130-400); RED BLOOD COUNT 3.83 M/mm3 (4.10-5.30); REDCELL DISTRIBUTION WIDTH-CV 15.6 % (11.5-14.5); WHITE BLOOD COUNT 16.3 K/mm3 (4.8-10.8)
[2016-08-29 09:09] LABS: CREATININE, serum 2.23 mg/dL (0.52-1.25)
[2016-08-29 09:10] LABS: CALCIUM 9.3 mg/dL (8.4-10.2); CREATININE, serum 2.23 mg/dL (0.52-1.25)
[2016-08-29 11:31] VITALS: BP 152/55; PULSE 76; TEMP 97.2
[2016-08-29 16:24] LABS: CALCIUM 9.2 mg/dL (8.4-10.2); CREATININE, serum 2.07 mg/dL (0.52-1.25); POTASSIUM 4.1 mmol/L (3.4-5.0)
[2016-08-29 16:48] VITALS: BP 123/41; PULSE 84; TEMP 99.6
[2016-08-29 19:22] VITALS: BP 151/42; PULSE 98; TEMP 98.3
[2016-08-30 01:12] VITALS: BP 133/68; PULSE 70; TEMP 98.8
[2016-08-30 02:56] VITALS: BP 135/44; PULSE 69; TEMP 98.5
[2016-08-30 07:40] LABS: BASO # 0.1 (0.0-0.2); BASO % 0.5 % (0.0-2.0); EOS # 0.1 (0.0-0.7); EOS % 0.9 % (0-4.0); GRAN % 68.6 % (42.2-75.2); LYMPH # 2.1 (1.2-3.4); LYMPH % 20.7 % (20.0-51.0); MEAN CELL VOLUME 96 fl (80.0-100.0); MEAN CORPUSCULAR HGB CONC 32 g/dl (33.0-37.0); MEAN PLATELET VOLUME 12.2 fl (7.4-10.4); MONO # 0.9 (0.1-0.6); MONO % 8.9 % (1.7-9.3); PLATELET COUNT 157 K/mm3 (130-400); RED BLOOD COUNT 3.66 M/mm3 (4.10-5.30); REDCELL DISTRIBUTION WIDTH-CV 15.3 % (11.5-14.5); WHITE BLOOD COUNT 10.3 K/mm3 (4.8-10.8)
[2016-08-30 07:42] LABS: HEMOGLOBIN 11.3 g/dl (12.5-16.0); MEAN CORPUSCULAR HEMOGLOBIN 31 pg (27.0-31.0)
[2016-08-30 07:57] LABS: CALCIUM 9.2 mg/dL (8.4-10.2); CREATININE, serum 2.37 mg/dL (0.52-1.25); POTASSIUM 3.5 mmol/L (3.4-5.0)
[2016-08-30 08:13] VITALS: BP 130/47; PULSE 61; TEMP 97.2
[2016-08-30 11:50] VITALS: BP 146/48; PULSE 63
[2016-08-30 16:03] VITALS: BP 136/50; PULSE 76; TEMP 98.7
[2016-08-30 20:33] VITALS: BP 152/62; PULSE 74; TEMP 98.3
[2016-08-31 00:06] VITALS: BP 141/50; PULSE 67; TEMP 98.7
[2016-08-31 00:16] VITALS: BP 182/71; PULSE 66; TEMP 98.7
[2016-08-31 02:59] VITALS: BP 120/30; PULSE 70; TEMP 98.3
[2016-08-31 07:48] LABS: BASO % 0.4 % (0.0-2.0); EOS # 0.3 (0.0-0.7); EOS % 2.9 % (0-4.0); GRAN # 5.2 (1.4-6.5); GRAN % 58.2 % (42.2-75.2); LYMPH # 2.6 (1.2-3.4); LYMPH % 28.7 % (20.0-51.0); MEAN CELL VOLUME 95 fl (80.0-100.0); MEAN CORPUSCULAR HGB CONC 32 g/dl (33.0-37.0); MEAN PLATELET VOLUME 12.2 fl (7.4-10.4); MONO # 0.9 (0.1-0.6); MONO % 9.4 % (1.7-9.3); PLATELET COUNT 161 K/mm3 (130-400); RED BLOOD COUNT 3.67 M/mm3 (4.10-5.30); REDCELL DISTRIBUTION WIDTH-CV 15.2 % (11.5-14.5)
[2016-08-31 07:55] LABS: HEMOGLOBIN 11.1 g/dl (12.5-16.0); MEAN CORPUSCULAR HEMOGLOBIN 30 pg (27.0-31.0)
[2016-08-31 07:56] LABS: CALCIUM 9.3 mg/dL (8.4-10.2); CREATININE, serum 1.96 mg/dL (0.52-1.25); POTASSIUM 3.8 mmol/L (3.4-5.0)
[2016-08-31 08:45] VITALS: BP 157/63; PULSE 69; TEMP 97.9
[2016-08-31] MEDS ORDERED: NEURONTIN300 MG/CAP PO (10:21)
[2016-08-31] MEDS ORDERED: APRESOLINE 25MG25 MG PO (10:22)
[2016-08-31] MEDS ORDERED: CLEOCIN HCL300 MG PO (10:23)
[2016-08-31 11:25] VITALS: BP 144/81; PULSE 74; TEMP 89.9
[2016-08-31 12:11] VITALS: BP 144/81; PULSE 74; TEMP 89.9
== END 2016-08-31 14:47 | DRG 683 ==
LOC: MEDICAL 04:43
PROVIDERS: Internal Medicine
DX: N17.9 Acute kidney failure, unspecified (principal); L03.116 Cellulitis of left lower limb; L03.115 Cellulitis of right lower limb; I13.0 Hypertensive heart and chronic kidney disease with heart failure and stage 1 through stage 4 chronic kidney disease, or unspecified chronic kidney disease; Z68.42 Body mass index [BMI] 45.0-49.9, adult; E87.3 Alkalosis; I50.32 Chronic diastolic (congestive) heart failure; Z66 Do not resuscitate; E11.22 Type 2 diabetes mellitus with diabetic chronic kidney disease; N18.3 Chronic kidney disease, stage 3 (moderate); E66.9 Obesity, unspecified; E11.42 Type 2 diabetes mellitus with diabetic polyneuropathy; J44.9 Chronic obstructive pulmonary disease, unspecified; R33.9 Retention of urine, unspecified; G47.33 Obstructive sleep apnea (adult) (pediatric)
CPT/HCPCS: J0692; J1120; J1644; J1815; J1940; J3370; J3480; J7050

== ENCOUNTER 2016-08-31 12:10 | Inpatient (IN) | payer MEDICARE, OTHER ==
[~2016-08-31] VITALS: Ht 160 cm; Wt 115.6 kg
[~2016-08-31 12:10] MED LIST changes: +KLOR-CON 1010 MEQ PO; +VITAMIN D 50,1.25 MG PO; +ZAROXOLYN5 MG PO
[2016-08-31 17:14] VITALS: BP 150/80; PULSE 74; TEMP 98.5
[2016-09-01 05:44] VITALS: BP 143/51; PULSE 63; TEMP 97.7
[2016-09-01 16:02] VITALS: BP 122/55; PULSE 68; TEMP 98.5
[2016-09-02 06:32] VITALS: BP 143/45; PULSE 64; TEMP 98.7
[2016-09-02 15:52] VITALS: BP 128/43; PULSE 60; TEMP 98.1
[2016-09-03 06:25] VITALS: BP 140/59; PULSE 60; TEMP 97.7
[2016-09-03 08:44] LABS: MEAN CELL VOLUME 92 fl (80.0-100.0); MEAN CORPUSCULAR HGB CONC 33 g/dl (33.0-37.0); MEAN PLATELET VOLUME 11.4 fl (7.4-10.4); PLATELET COUNT 239 K/mm3 (130-400); RED BLOOD COUNT 3.91 M/mm3 (4.10-5.30); REDCELL DISTRIBUTION WIDTH-CV 14.8 % (11.5-14.5); WHITE BLOOD COUNT 13.3 K/mm3 (4.8-10.8)
[2016-09-03 08:50] LABS: ADD PATHOLOGY DIFF REVIEW NO; HEMATOCRIT 36.1 % (37.0-47.0); HEMOGLOBIN 11.9 g/dl (12.5-16.0); MEAN CORPUSCULAR HEMOGLOBIN 30 pg (27.0-31.0)
[2016-09-03 08:55] LABS: CALCIUM 9.6 mg/dL (8.4-10.2); CREATININE, serum 1.74 mg/dL (0.52-1.25); MAGNESIUM 2.9 mg/dL (1.6-2.3); POTASSIUM 3.8 mmol/L (3.4-5.0)
[2016-09-03 09:57] LABS: BAND 15 % (0-10); BASOPHIL 1 % (0-2); EOSINOPHIL 5 % (0-4); MYELOCYTE 2 % (0-0); NEUTROPHILS 43 % (42.0-75.2); PLATELET ESTIMATE NORMAL (NORMAL); TOTAL CELLS COUNTED 100
[2016-09-03] MEDS ORDERED: PRIL40 PO (16:24)
[2016-09-03 17:44] VITALS: BP 111/51; PULSE 63; TEMP 98.6
[2016-09-04 02:12] LABS: PH 7 (5-8); SQUAMOUS EPITHELIAL None Seen /hpf; URINE APPEARANCE Clear; URINE BACTERIA None Seen /hpf; URINE BILIRUBIN Negative (NEGATIVE); URINE BLOOD 1+ (NEGATIVE); URINE COLOR Yellow; URINE GLUCOSE Negative (NEGATIVE); URINE KETONE Negative (NEGATIVE); URINE UROBILINOGEN Negative (NEGATIVE)
[2016-09-04 05:09] VITALS: BP 131/44; PULSE 61; TEMP 97.7
[2016-09-04 18:48] VITALS: BP 131/45; PULSE 63; TEMP 98.7
[2016-09-05 06:16] VITALS: BP 127/42; PULSE 57; TEMP 98.4
[2016-09-05 06:56] LABS: MEAN CELL VOLUME 95 fl (80.0-100.0); MEAN CORPUSCULAR HGB CONC 32 g/dl (33.0-37.0); MEAN PLATELET VOLUME 11.2 fl (7.4-10.4); PLATELET COUNT 227 K/mm3 (130-400); RED BLOOD COUNT 3.44 M/mm3 (4.10-5.30); REDCELL DISTRIBUTION WIDTH-CV 14.8 % (11.5-14.5); WHITE BLOOD COUNT 11.8 K/mm3 (4.8-10.8)
[2016-09-05 07:02] LABS: HEMATOCRIT 32.5 % (37.0-47.0); HEMOGLOBIN 10.5 g/dl (12.5-16.0); MEAN CORPUSCULAR HEMOGLOBIN 31 pg (27.0-31.0)
[2016-09-05 07:03] LABS: ADD PATHOLOGY DIFF REVIEW NO
[2016-09-05 07:11] LABS: CALCIUM 9.5 mg/dL (8.4-10.2); CREATININE, serum 1.62 mg/dL (0.52-1.25); POTASSIUM 3.9 mmol/L (3.4-5.0)
[2016-09-05 07:55] LABS: BAND 10 % (0-10); EOSINOPHIL 4 % (0-4); METAMYELOCYTE 2 % (0-0); NEUTROPHILS 37 % (42.0-75.2); PLATELET ESTIMATE NORMAL (NORMAL); TOTAL CELLS COUNTED 100
[2016-09-05 07:56] LABS: TOXIC GRANULATION PRESENT
[2016-09-05 17:02] VITALS: BP 133/48; PULSE 60; TEMP 97.7
[2016-09-06 06:03] VITALS: BP 116/54; PULSE 58; TEMP 97.2
[2016-09-06 16:03] VITALS: BP 114/57; PULSE 64; TEMP 98.5
[2016-09-07 05:18] VITALS: BP 126/65; PULSE 66; TEMP 98.5
[2016-09-07 16:02] VITALS: BP 130/40; PULSE 57; TEMP 99.3
[2016-09-08 04:17] VITALS: BP 122/45; PULSE 55; TEMP 98
[2016-09-08 16:32] VITALS: BP 128/60; PULSE 59; TEMP 97.5
[2016-09-09 06:33] VITALS: BP 145/63; PULSE 59; TEMP 98
[2016-09-09 16:48] VITALS: BP 126/59; PULSE 61; TEMP 98.5
[2016-09-10 04:28] VITALS: BP 145/54; PULSE 65; TEMP 98.6
[2016-09-10 16:00] VITALS: BP 135/57; PULSE 70; TEMP 98.9
[2016-09-11 06:05] VITALS: BP 131/61; PULSE 54; TEMP 98.4
[2016-09-11 16:14] VITALS: BP 134/47; PULSE 63; TEMP 98
[2016-09-12 05:15] VITALS: BP 131/43; PULSE 52; TEMP 98.2
[2016-09-12 07:07] LABS: CALCIUM 9.8 mg/dL (8.4-10.2); CREATININE, serum 1.58 mg/dL (0.52-1.25); POTASSIUM 4.1 mmol/L (3.4-5.0)
[2016-09-12] MEDS ORDERED: ZYRTEC5 MG PO (12:25)
== END 2016-09-12 15:45 | disposition home or self-care (01) | DRG 948 ==
PROVIDERS: Family Medicine; Internal Medicine; Internal Medicine Infectious Disease
DX: R53.81 Other malaise (principal); N17.9 Acute kidney failure, unspecified; L03.116 Cellulitis of left lower limb; L03.115 Cellulitis of right lower limb; E11.9 Type 2 diabetes mellitus without complications; J44.9 Chronic obstructive pulmonary disease, unspecified; L89.891 Pressure ulcer of other site, stage 1; R33.9 Retention of urine, unspecified; I11.0 Hypertensive heart disease with heart failure; I50.9 Heart failure, unspecified
CPT/HCPCS: 99222-AI; 99232-AI; 99233-AI; 99239; J1644; J1815

== ENCOUNTER 2016-09-22 11:29 | Emergency (ER) | payer MEDICARE, OTHER ==
[~2016-09-22] VITALS: Ht 160 cm; Wt 115.5 kg
[~2016-09-22 11:29] MED LIST changes: +PRIL40 PO; +ZYRTEC5 MG PO
[2016-09-22 11:36] VITALS: BP 149/62; TEMP 98.4
[2016-09-22] MEDS ORDERED: DOXYCYCLINE 10100 MG PO (12:00)
[2016-09-22 12:09] VITALS: PULSE 60
== END 2016-09-22 12:14 | disposition home or self-care (01) ==
LOC: COL.ER 11:29
DX: L03.116 Cellulitis of left lower limb (principal); L03.115 Cellulitis of right lower limb

== ENCOUNTER → 2016-10-29 | Outpatient (CLI) | payer MEDICARE, OTHER ==
[~2016-10-29] MED LIST changes: +CLARITIN LIQUI-10 MG PO; +CLEOCIN HC150 MG/CAP PO; +DOXYCYCLINE 10100 MG PO; +TOPROL XL200 MG PO; +VITAMIN D32000 I1 PO
[2016-10-29 13:38] LABS: CREATININE, serum 2.52 mg/dL (0.52-1.25); POTASSIUM 4.3 mmol/L (3.4-5.0)
== END ==
LOC: COL.LAB 12:54
PROVIDERS: Internal Medicine Nephrology
DX: N18.3 Chronic kidney disease, stage 3 (moderate) (principal)

== ENCOUNTER → 2016-11-06 | Outpatient (REF) ==
[~2016-11-06] MED LIST changes: +CEFEPIME2 GM/100 M IV; +LASIX 40MG TABL40 MG PO; +VANCOCIN HCL1 GM IV
[2016-11-06 16:22] LABS: ADJUSTED CALCIUM 9.5 mg/dL (8.4-10.2); BILIRUBIN,TOTAL 0.6 mg/dL (0.0-1.0); CALCIUM 9.5 mg/dL (8.4-10.2); CREATININE, serum 2.49 mg/dL (0.52-1.25); POTASSIUM 4.7 mmol/L (3.4-5.0); TOTAL PROTEIN 7.5 gm/dL (6.4-8.2)
[2016-11-06 16:50] LABS: THYROID STIMULATING HORMONE 3.71 uIU/mL (0.465-4.680)
== END ==
LOC: ZMSC 16:00
DX: Z02.89 Encounter for other administrative examinations (principal)

== ENCOUNTER 2016-11-14 13:15 | Outpatient (RCR) | payer MEDICARE, OTHER ==
[~2016-11-14 13:15] MED LIST changes: -CEFEPIME2 GM/100 M IV; -CLARITIN LIQUI-10 MG PO; -CLEOCIN HC150 MG/CAP PO; -LASIX 40MG TABL40 MG PO; -TOPROL XL200 MG PO; -VANCOCIN HCL1 GM IV; -VITAMIN D32000 I1 PO
[2016-11-19] MEDS ORDERED: NEURONTIN300 MG/CAP PO (16:44)
[2016-11-19] MEDS ORDERED: CLARITIN LIQUI-10 MG PO (16:51)
[2016-11-19] MEDS ORDERED: MICARDIS80 MG PO (16:51)
[2016-11-19] MEDS ORDERED: K-DUR 10 MEQ T10 MEQ PO (17:17)
[2016-11-19] MEDS ORDERED: CLEOCIN HC150 MG/CAP PO (17:19)
[2016-11-19] MEDS ORDERED: VITAMIN D32000 I1 PO (17:19)
[2016-11-19] MEDS ORDERED: TOPROL XL200 MG PO (17:20)
[2016-11-26] MEDS ORDERED: VANCOCIN HCL1 GM IV (09:43)
[2016-11-26] MEDS ORDERED: CEFEPIME2 GM/100 M IV (09:44)
[2016-11-26] MEDS ORDERED: LASIX 40MG TABL40 MG PO (11:50)
[2016-12-05] MEDS ORDERED: NEURONTIN300 MG/CAP PO (12:13)
[2016-12-20] MEDS ORDERED: CIPRO 500MG TA500 MG PO (08:36)
[2016-12-20] MEDS ORDERED: LASIX 40MG TABL40 MG PO (08:38)
[2016-12-20] MEDS ORDERED: NYAMYC100000 U/G TOP (08:39)
[2016-12-20] MEDS ORDERED: BACTROBAN 22GM22 GM TOP (08:39)
== END 2017-01-03 11:59 ==
LOC: WSPT 13:15
DX: I89.0 Lymphedema, not elsewhere classified (principal)
CPT/HCPCS: G8978-GP; G8979-GP; G8980-GP

== ENCOUNTER 2016-11-19 13:13 | Inpatient (IN) | payer MEDICARE, OTHER ==
[~2016-11-19] VITALS: Ht 165.1 cm; Wt 118.3 kg
[2016-11-19 13:58] LABS: PH 8 (5-8); SQUAMOUS EPITHELIAL 0-2 /hpf; URINE APPEARANCE Clear; URINE BACTERIA None Seen /hpf; URINE BILIRUBIN Negative (NEGATIVE); URINE BLOOD 2+ (NEGATIVE); URINE COLOR Yellow; URINE GLUCOSE Negative (NEGATIVE); URINE KETONE Negative (NEGATIVE); URINE RBC 20-50 /hpf; URINE UROBILINOGEN Negative (NEGATIVE)
[2016-11-19 14:14] LABS: BASO # 0.1 (0.0-0.2); BASO % 0.4 % (0.0-2.0); EOS % 0.2 % (0-4.0); GRAN # 17.8 (1.4-6.5); GRAN % 89.1 % (42.2-75.2); MEAN CELL VOLUME 95 fl (80.0-100.0); MEAN CORPUSCULAR HGB CONC 33 g/dl (33.0-37.0); MEAN PLATELET VOLUME 11.2 fl (7.4-10.4); MONO # 0.8 (0.1-0.6); MONO % 4.2 % (1.7-9.3); PLATELET COUNT 149 K/mm3 (130-400); RED BLOOD COUNT 3.81 M/mm3 (4.10-5.30); REDCELL DISTRIBUTION WIDTH-CV 16.5 % (11.5-14.5)
[2016-11-19 14:15] LABS: INR 1.2 (0.8-3.0); PROTHROMBIN TIME 12.9 SECONDS (9.7-12.8)
[2016-11-19 14:18] LABS: HEMATOCRIT 36.2 % (37.0-47.0); HEMOGLOBIN 11.9 g/dl (12.5-16.0); MEAN CORPUSCULAR HEMOGLOBIN 31 pg (27.0-31.0); WHITE BLOOD COUNT 19.9 K/mm3 (4.8-10.8)
[2016-11-19 14:23] LABS: ADJUSTED CALCIUM 9.4 mg/dL (8.4-10.2); ALBUMIN 4.4 gm/dL (3.5-5.0); BILIRUBIN,TOTAL 1.1 mg/dL (0.0-1.0); CALCIUM 9.7 mg/dL (8.4-10.2); CREATININE, serum 1.63 mg/dL (0.52-1.25); POTASSIUM 4.1 mmol/L (3.4-5.0); TOTAL PROTEIN 8.2 gm/dL (6.4-8.2)
[2016-11-19 14:40] LABS: TROPONIN-I 0.04 ng/mL (0.000-0.034)
[2016-11-19 15:50] LABS: ARTERIAL BLD GAS O2 SATURATION 94.1 % (92-100); ARTERIAL BLD GAS TCO2 CT 28.3; ARTERIAL BLOOD GAS BASE EXCESS 4.6 (-2-2); ARTERIAL BLOOD GAS HCO3 27.3 meq/L (22-26); ARTERIAL BLOOD GAS PO2 61.6 mmHg (80-100); ARTERIAL BLOOD GAS pH 7.52 (7.35-7.45); OXYHEMOGLOBIN 93.1 %
[2016-11-19 15:51] LABS: ALLEN TEST YES; ALLENS TEST RESULT PASS; ATS? YES
[2016-11-19] MEDS ORDERED: NEURONTIN300 MG/CAP PO (16:44)
[2016-11-19] MEDS ORDERED: MICARDIS80 MG PO (16:51)
[2016-11-19] MEDS ORDERED: CLARITIN LIQUI-10 MG PO (16:51)
[2016-11-19 17:01] LABS: C-REACTIVE PROTEIN 3.5 mg/dL (0.0-0.9)
[2016-11-19 17:11] LABS: ERYTHROCYTE SEDIMENTATION RATE 55 mm/hr (0-30)
[2016-11-19] MEDS ORDERED: K-DUR 10 MEQ T10 MEQ PO (17:17)
[2016-11-19] MEDS ORDERED: VITAMIN D32000 I1 PO (17:19)
[2016-11-19] MEDS ORDERED: CLEOCIN HC150 MG/CAP PO (17:19)
[2016-11-19] MEDS ORDERED: TOPROL XL200 MG PO (17:20)
[2016-11-19 18:26] VITALS: BP 147/116; PULSE 84; TEMP 102.7
[2016-11-19 20:32] VITALS: BP 155/84; PULSE 84; TEMP 102.3
[2016-11-19 23:40] VITALS: BP 149/76; PULSE 83; TEMP 103.1
[2016-11-20] VITALS (7 sets, daily range): BP systolic 134–153; BP diastolic 39–63; PULSE 59–76; TEMP 98.3–102.1
[2016-11-20 09:06] LABS: MEAN CELL VOLUME 96 fl (80.0-100.0); MEAN CORPUSCULAR HGB CONC 33 g/dl (33.0-37.0); MEAN PLATELET VOLUME 11.4 fl (7.4-10.4); PLATELET COUNT 128 K/mm3 (130-400); RED BLOOD COUNT 3.49 M/mm3 (4.10-5.30); REDCELL DISTRIBUTION WIDTH-CV 17.1 % (11.5-14.5); WHITE BLOOD COUNT 19.1 K/mm3 (4.8-10.8)
[2016-11-20 09:09] LABS: ADD PATHOLOGY DIFF REVIEW NO; HEMATOCRIT 33.5 % (37.0-47.0); HEMOGLOBIN 11.1 g/dl (12.5-16.0); MEAN CORPUSCULAR HEMOGLOBIN 32 pg (27.0-31.0)
[2016-11-20 09:18] LABS: CALCIUM 8.9 mg/dL (8.4-10.2); CREATININE, serum 1.56 mg/dL (0.52-1.25); POTASSIUM 3.7 mmol/L (3.4-5.0)
[2016-11-20 09:29] LABS: TROPONIN-I 0.146 ng/mL (0.000-0.034)
[2016-11-20 09:55] LABS: BAND 37 % (0-10); NEUTROPHILS 56 % (42.0-75.2); PLATELET ESTIMATE DECREASED (NORMAL); TOTAL CELLS COUNTED 100
[2016-11-21 03:48] VITALS: BP 148/52; PULSE 56; TEMP 98.1
[2016-11-21 08:39] VITALS: BP 149/67; PULSE 69; TEMP 98.1
[2016-11-21 09:36] LABS: MEAN CELL VOLUME 97 fl (80.0-100.0); MEAN CORPUSCULAR HGB CONC 32 g/dl (33.0-37.0); MEAN PLATELET VOLUME 11.8 fl (7.4-10.4); PLATELET COUNT 108 K/mm3 (130-400); RED BLOOD COUNT 3.06 M/mm3 (4.10-5.30); REDCELL DISTRIBUTION WIDTH-CV 16.9 % (11.5-14.5); WHITE BLOOD COUNT 14.3 K/mm3 (4.8-10.8)
[2016-11-21 09:40] LABS: ADD PATHOLOGY DIFF REVIEW NO; HEMATOCRIT 29.7 % (37.0-47.0); HEMOGLOBIN 9.5 g/dl (12.5-16.0); MEAN CORPUSCULAR HEMOGLOBIN 31 pg (27.0-31.0)
[2016-11-21 10:04] LABS: BAND 28 % (0-10); MYELOCYTE 1 % (0-0); NEUTROPHILS 60 % (42.0-75.2); PLATELET ESTIMATE DECREASED (NORMAL); TOTAL CELLS COUNTED 100
[2016-11-21 10:40] LABS: CALCIUM 8.8 mg/dL (8.4-10.2); CREATININE, serum 1.21 mg/dL (0.52-1.25); POTASSIUM 3.8 mmol/L (3.4-5.0)
[2016-11-21 11:47] VITALS: BP 136/57; PULSE 71; TEMP 98.3
[2016-11-21 16:57] VITALS: BP 151/57; PULSE 89; TEMP 98
[2016-11-21 19:31] VITALS: BP 157/74; PULSE 74; TEMP 98.5
[2016-11-22] VITALS (7 sets, daily range): BP systolic 142–158; BP diastolic 46–101; PULSE 55–69; TEMP 97.4–98.2
[2016-11-22 08:37] LABS: BASO % 0.3 % (0.0-2.0); EOS # 0.1 (0.0-0.7); EOS % 1.1 % (0-4.0); GRAN # 8.2 (1.4-6.5); GRAN % 76.1 % (42.2-75.2); LYMPH # 1.6 (1.2-3.4); LYMPH % 15.1 % (20.0-51.0); MEAN CELL VOLUME 96 fl (80.0-100.0); MEAN CORPUSCULAR HGB CONC 32 g/dl (33.0-37.0); MONO # 0.8 (0.1-0.6); MONO % 6.9 % (1.7-9.3); PLATELET COUNT 106 K/mm3 (130-400); RED BLOOD COUNT 2.96 M/mm3 (4.10-5.30); REDCELL DISTRIBUTION WIDTH-CV 16.9 % (11.5-14.5); WHITE BLOOD COUNT 10.8 K/mm3 (4.8-10.8)
[2016-11-22 08:46] LABS: HEMATOCRIT 28.3 % (37.0-47.0); HEMOGLOBIN 9.1 g/dl (12.5-16.0); MEAN CORPUSCULAR HEMOGLOBIN 31 pg (27.0-31.0)
[2016-11-22 08:59] LABS: CALCIUM 8.8 mg/dL (8.4-10.2); CREATININE, serum 1.25 mg/dL (0.52-1.25); POTASSIUM 4.1 mmol/L (3.4-5.0)
[2016-11-23 03:45] VITALS: BP 146/52; PULSE 58; TEMP 97.5
[2016-11-23 07:38] VITALS: BP 136/79; PULSE 65; TEMP 98.2
[2016-11-23 08:34] LABS: BASO % 0.3 % (0.0-2.0); EOS # 0.2 (0.0-0.7); EOS % 2.4 % (0-4.0); GRAN # 6.1 (1.4-6.5); LYMPH # 2.2 (1.2-3.4); LYMPH % 23.7 % (20.0-51.0); MEAN CELL VOLUME 94 fl (80.0-100.0); MEAN CORPUSCULAR HGB CONC 33 g/dl (33.0-37.0); MEAN PLATELET VOLUME 11.6 fl (7.4-10.4); MONO # 0.7 (0.1-0.6); MONO % 7.7 % (1.7-9.3); PLATELET COUNT 128 K/mm3 (130-400); RED BLOOD COUNT 3.12 M/mm3 (4.10-5.30); REDCELL DISTRIBUTION WIDTH-CV 16.6 % (11.5-14.5); WHITE BLOOD COUNT 9.4 K/mm3 (4.8-10.8)
[2016-11-23 08:37] LABS: HEMATOCRIT 29.3 % (37.0-47.0); HEMOGLOBIN 9.7 g/dl (12.5-16.0); MEAN CORPUSCULAR HEMOGLOBIN 31 pg (27.0-31.0)
[2016-11-23 12:25] VITALS: BP 148/72; PULSE 78; TEMP 98.7
[2016-11-23 16:19] VITALS: BP 141/65; PULSE 70; TEMP 98.2
[2016-11-23 20:20] VITALS: BP 141/52; PULSE 72; TEMP 98.3
[2016-11-24] VITALS (7 sets, daily range): BP systolic 122–149; BP diastolic 50–77; PULSE 69–98; TEMP 97.6–98.4
[2016-11-24 07:55] LABS: MEAN CELL VOLUME 94 fl (80.0-100.0); MEAN CORPUSCULAR HGB CONC 33 g/dl (33.0-37.0); MEAN PLATELET VOLUME 10.9 fl (7.4-10.4); PLATELET COUNT 147 K/mm3 (130-400); RED BLOOD COUNT 3.19 M/mm3 (4.10-5.30); REDCELL DISTRIBUTION WIDTH-CV 16.1 % (11.5-14.5); WHITE BLOOD COUNT 8.8 K/mm3 (4.8-10.8)
[2016-11-24 07:59] LABS: ADD PATHOLOGY DIFF REVIEW NO; HEMATOCRIT 29.9 % (37.0-47.0); HEMOGLOBIN 9.9 g/dl (12.5-16.0); MEAN CORPUSCULAR HEMOGLOBIN 31 pg (27.0-31.0)
[2016-11-24 08:04] LABS: CALCIUM 9.1 mg/dL (8.4-10.2); CREATININE, serum 1.12 mg/dL (0.52-1.25); POTASSIUM 3.7 mmol/L (3.4-5.0)
[2016-11-24 09:45] LABS: BAND 12 % (0-10); EOSINOPHIL 6 % (0-4); METAMYELOCYTE 1 % (0-0); NEUTROPHILS 52 % (42.0-75.2); TOTAL CELLS COUNTED 100
[2016-11-24 09:47] LABS: PLATELET ESTIMATE NORMAL (NORMAL)
[2016-11-24 09:48] LABS: ANISOCYTOSIS 1+
[2016-11-25 03:00] VITALS: BP 131/59; PULSE 73; TEMP 98.6
[2016-11-25 07:42] VITALS: BP 128/52; PULSE 70; TEMP 98.2
[2016-11-25 11:26] VITALS: BP 122/61; PULSE 75; TEMP 97.9
[2016-11-25 15:27] VITALS: BP 135/67; PULSE 75; TEMP 98.2
[2016-11-25 19:24] VITALS: BP 135/57; PULSE 64; TEMP 98.1
[2016-11-25 22:49] VITALS: BP 145/64; PULSE 70; TEMP 97.6
[2016-11-26 04:02] VITALS: BP 144/78; PULSE 91; TEMP 98
[2016-11-26 07:39] VITALS: BP 141/81; PULSE 66; TEMP 97.8
[2016-11-26] MEDS ORDERED: VANCOCIN HCL1 GM IV (09:43)
[2016-11-26] MEDS ORDERED: CEFEPIME2 GM/100 M IV (09:44)
[2016-11-26 11:17] LABS: CALCIUM 9.7 mg/dL (8.4-10.2); CREATININE, serum 1.47 mg/dL (0.52-1.25); MAGNESIUM 1.8 mg/dL (1.6-2.3)
[2016-11-26 11:29] VITALS: BP 142/75; PULSE 81; TEMP 98.3
[2016-11-26] MEDS ORDERED: LASIX 40MG TABL40 MG PO (11:50)
[2016-11-26 15:18] VITALS: BP 142/75; PULSE 81; TEMP 98.3
== END 2016-11-26 15:57 | DRG 871 ==
LOC: COL.ER 13:13 → MEDICAL 15:52
PROVIDERS: Emergency Medicine; Internal Medicine; Nurse Practitioner; Nurse Practitioner Family
DX: A41.9 Sepsis, unspecified organism (principal); I21.4 Non-ST elevation (NSTEMI) myocardial infarction; L03.115 Cellulitis of right lower limb; E87.3 Alkalosis; Z66 Do not resuscitate; I13.0 Hypertensive heart and chronic kidney disease with heart failure and stage 1 through stage 4 chronic kidney disease, or unspecified chronic kidney disease; Z68.41 Body mass index [BMI] 40.0-44.9, adult; I42.0 Dilated cardiomyopathy; I50.32 Chronic diastolic (congestive) heart failure; E11.22 Type 2 diabetes mellitus with diabetic chronic kidney disease; N18.3 Chronic kidney disease, stage 3 (moderate); J44.9 Chronic obstructive pulmonary disease, unspecified; E11.42 Type 2 diabetes mellitus with diabetic polyneuropathy; E66.9 Obesity, unspecified; Z86.718 Personal history of other venous thrombosis and embolism; Z79.01 Long term (current) use of anticoagulants; D64.9 Anemia, unspecified; I25.10 Atherosclerotic heart disease of native coronary artery without angina pectoris
CPT/HCPCS: 99222-AI; 99232-AI; 99233-AI; 99239; J0692; J1450; J1650; J1815; J2405; J3370; J7030; J7050

== ENCOUNTER → 2016-11-28 | Outpatient (REF) ==
[~2016-11-28] MED LIST changes: +CEFEPIME2 GM/100 M IV; +CLARITIN LIQUI-10 MG PO; +CLEOCIN HC150 MG/CAP PO; +LASIX 40MG TABL40 MG PO; +TOPROL XL200 MG PO; +VANCOCIN HCL1 GM IV; +VITAMIN D32000 I1 PO
[2016-11-28 15:48] LABS: VANCOMYCIN TROUGH 21.24 ug/mL (7.00-20.00)
[2016-11-28 16:00] LABS: CALCIUM 9.5 mg/dL (8.4-10.2); CREATININE, serum 1.67 mg/dL (0.52-1.25)
== END ==
LOC: ZLAB.STJ 14:28
PROVIDERS: Internal Medicine
DX: Z02.89 Encounter for other administrative examinations (principal)

== ENCOUNTER → 2016-12-03 | Outpatient (REF) ==
[2016-12-03 11:56] LABS: HEMATOCRIT 27.8 % (37.0-47.0); HEMOGLOBIN 9.3 g/dl (12.5-16.0); MEAN CELL VOLUME 95 fl (80.0-100.0); MEAN CORPUSCULAR HEMOGLOBIN 32 pg (27.0-31.0); MEAN CORPUSCULAR HGB CONC 34 g/dl (33.0-37.0); PLATELET COUNT 201 K/mm3 (130-400); RED BLOOD COUNT 2.94 M/mm3 (4.10-5.30); REDCELL DISTRIBUTION WIDTH-CV 15.7 % (11.5-14.5); WHITE BLOOD COUNT 7.7 K/mm3 (4.8-10.8)
== END ==
LOC: ZLAB.STJ 10:47
DX: Z02.89 Encounter for other administrative examinations (principal)

== ENCOUNTER 2016-12-05 17:22 | Inpatient (IN) | payer MEDICARE, OTHER ==
[~2016-12-05] VITALS: Ht 160 cm; Wt 114.9 kg
[2016-12-05 17:46] VITALS: BP 124/49; PULSE 57; TEMP 98.3
[2016-12-05 18:17] VITALS: BP 124/49; PULSE 57; TEMP 98.3
[2016-12-06 04:16] VITALS: BP 129/48; PULSE 51; TEMP 97.6
[2016-12-06 17:36] VITALS: BP 138/56; PULSE 58; TEMP 97.9
[2016-12-07 05:40] VITALS: BP 123/59; PULSE 55; TEMP 98.2
[2016-12-07 15:48] VITALS: BP 115/48; PULSE 70; TEMP 97.7
[2016-12-07 17:53] LABS: BASO # 0.2 (0.0-0.2); BASO % 1.6 % (0.0-2.0); EOS # 0.3 (0.0-0.7); EOS % 3.3 % (0-4.0); GRAN # 4.4 (1.4-6.5); GRAN % 47.5 % (42.2-75.2); HEMATOCRIT 32.6 % (37.0-47.0); HEMOGLOBIN 10.7 g/dl (12.5-16.0); LYMPH # 3.5 (1.2-3.4); LYMPH % 37.4 % (20.0-51.0); MEAN CELL VOLUME 96 fl (80.0-100.0); MEAN CORPUSCULAR HEMOGLOBIN 32 pg (27.0-31.0); MEAN CORPUSCULAR HGB CONC 33 g/dl (33.0-37.0); MEAN PLATELET VOLUME 11.3 fl (7.4-10.4); MONO # 0.9 (0.1-0.6); PLATELET COUNT 208 K/mm3 (130-400); RED BLOOD COUNT 3.39 M/mm3 (4.10-5.30); WHITE BLOOD COUNT 9.3 K/mm3 (4.8-10.8)
[2016-12-07 18:02] LABS: CALCIUM 9.9 mg/dL (8.4-10.2); CREATININE, serum 2.15 mg/dL (0.52-1.25); POTASSIUM 3.7 mmol/L (3.4-5.0)
[2016-12-08 05:06] VITALS: BP 127/57; PULSE 55; TEMP 98.3
[2016-12-08 16:52] VITALS: BP 146/60; PULSE 55; TEMP 97.9
[2016-12-09 05:59] VITALS: BP 118/63; PULSE 52; TEMP 98.2
[2016-12-09 16:44] VITALS: BP 140/59; PULSE 56; TEMP 98
[2016-12-10 05:34] VITALS: BP 123/56; PULSE 66; TEMP 97.9
[2016-12-10 08:04] LABS: CALCIUM 10.1 mg/dL (8.4-10.2); CREATININE, serum 2.12 mg/dL (0.52-1.25); MAGNESIUM 2.1 mg/dL (1.6-2.3); POTASSIUM 3.7 mmol/L (3.4-5.0)
[2016-12-10 18:37] VITALS: BP 114/54; PULSE 69; TEMP 98
[2016-12-10 23:41] LABS: COLLECTION METHOD CATHETER
[2016-12-10 23:49] LABS: MUCOUS Present /lpf; PH 6 (5-8); SQUAMOUS EPITHELIAL 0-2 /hpf; URINE APPEARANCE Hazy; URINE BACTERIA Rare /hpf; URINE BILIRUBIN Negative (NEGATIVE); URINE BLOOD 2+ (NEGATIVE); URINE COLOR Yellow; URINE GLUCOSE Negative (NEGATIVE); URINE KETONE Negative (NEGATIVE); URINE LEUKOCYTE ESTERASE 3+ (NEGATIVE); URINE PROTEIN(semi-quant) Negative (NEGATIVE); URINE RBC 20-50 /hpf; URINE UROBILINOGEN Negative (NEGATIVE); URINE WBC >50 /hpf
[2016-12-11 05:11] VITALS: BP 127/49; PULSE 56; TEMP 98.4
[2016-12-11 17:06] VITALS: BP 139/62; PULSE 58; TEMP 98
[2016-12-12 03:02] VITALS: BP 132/51; PULSE 55; TEMP 98.2
[2016-12-12 07:37] LABS: BASO # 0.1 (0.0-0.2); BASO % 0.8 % (0.0-2.0); EOS # 0.4 (0.0-0.7); EOS % 4.5 % (0-4.0); GRAN # 3.5 (1.4-6.5); GRAN % 41.7 % (42.2-75.2); HEMATOCRIT 30.5 % (37.0-47.0); HEMOGLOBIN 9.9 g/dl (12.5-16.0); LYMPH # 3.5 (1.2-3.4); LYMPH % 41.9 % (20.0-51.0); MEAN CELL VOLUME 97 fl (80.0-100.0); MEAN CORPUSCULAR HEMOGLOBIN 32 pg (27.0-31.0); MEAN CORPUSCULAR HGB CONC 33 g/dl (33.0-37.0); MEAN PLATELET VOLUME 11.7 fl (7.4-10.4); MONO # 0.9 (0.1-0.6); MONO % 10.6 % (1.7-9.3); PLATELET COUNT 169 K/mm3 (130-400); RED BLOOD COUNT 3.14 M/mm3 (4.10-5.30); WHITE BLOOD COUNT 8.4 K/mm3 (4.8-10.8)
[2016-12-12 07:48] LABS: CALCIUM 9.6 mg/dL (8.4-10.2); CREATININE, serum 1.75 mg/dL (0.52-1.25)
[2016-12-12 16:16] VITALS: BP 117/46; PULSE 58; TEMP 98.7
[2016-12-13 05:06] VITALS: BP 122/49; PULSE 62; TEMP 98.1
[2016-12-13 16:14] VITALS: BP 136/57; PULSE 63; TEMP 97.8
[2016-12-14 04:47] VITALS: BP 130/55; PULSE 52; TEMP 98
[2016-12-14 07:27] LABS: CALCIUM 10.2 mg/dL (8.4-10.2); CREATININE, serum 1.76 mg/dL (0.52-1.25); POTASSIUM 4.2 mmol/L (3.4-5.0)
[2016-12-14 16:20] VITALS: BP 132/42; PULSE 58; TEMP 98.9
[2016-12-15 05:58] VITALS: BP 129/42; PULSE 56; TEMP 98.2
[2016-12-15 18:02] VITALS: BP 130/50; PULSE 59; TEMP 98
[2016-12-16 06:45] VITALS: BP 120/62; PULSE 62; TEMP 97.4
[2016-12-16 17:35] VITALS: BP 129/52; PULSE 61; TEMP 98.1
[2016-12-17 03:15] VITALS: BP 124/54; PULSE 64; TEMP 97.8
[2016-12-17 05:42] VITALS: BP 139/61; PULSE 57; TEMP 98.2
[2016-12-17 17:11] VITALS: BP 124/54; PULSE 64; TEMP 97.8
[2016-12-18 06:02] VITALS: BP 119/41; PULSE 60; TEMP 98.6
[2016-12-18 18:02] VITALS: BP 121/49; PULSE 59; TEMP 97.3
[2016-12-19 03:25] VITALS: BP 150/51; PULSE 98; TEMP 98.7
[2016-12-19 08:29] LABS: CALCIUM 9.9 mg/dL (8.4-10.2); CREATININE, serum 1.97 mg/dL (0.52-1.25); POTASSIUM 4.4 mmol/L (3.4-5.0)
[2016-12-19 19:20] VITALS: BP 144/71; PULSE 94; TEMP 98.2
[2016-12-20 06:00] VITALS: BP 127/48; PULSE 56; TEMP 97.9
[2016-12-20] MEDS ORDERED: CIPRO 500MG TA500 MG PO (08:36)
[2016-12-20] MEDS ORDERED: LASIX 40MG TABL40 MG PO (08:38)
[2016-12-20] MEDS ORDERED: BACTROBAN 22GM22 GM TOP (08:39)
[2016-12-20] MEDS ORDERED: NYAMYC100000 U/G TOP (08:39)
== END 2016-12-20 14:50 | disposition home health service (06) | DRG 948 ==
PROVIDERS: Family Medicine; Internal Medicine; Nurse Practitioner Family
DX: R53.81 Other malaise (principal); N17.9 Acute kidney failure, unspecified; L03.115 Cellulitis of right lower limb; I13.0 Hypertensive heart and chronic kidney disease with heart failure and stage 1 through stage 4 chronic kidney disease, or unspecified chronic kidney disease; I50.32 Chronic diastolic (congestive) heart failure; Z68.41 Body mass index [BMI] 40.0-44.9, adult; N39.0 Urinary tract infection, site not specified; J44.9 Chronic obstructive pulmonary disease, unspecified; E11.22 Type 2 diabetes mellitus with diabetic chronic kidney disease; N18.9 Chronic kidney disease, unspecified; E11.42 Type 2 diabetes mellitus with diabetic polyneuropathy; G47.33 Obstructive sleep apnea (adult) (pediatric); E66.9 Obesity, unspecified; B96.20 Unspecified Escherichia coli [E. coli] as the cause of diseases classified elsewhere
CPT/HCPCS: 99222-AI; 99232-AI; 99239; J0696; J0744; J1200; J1644; J1815

== ENCOUNTER → 2016-12-21 | Outpatient (CLI) | payer MEDICARE, OTHER ==
[~2016-12-21] MED LIST changes: +BACTROBAN 22GM22 GM TOP; +CIPRO 500MG TA500 MG PO; +NYAMYC100000 U/G TOP
== END ==
LOC: WCC 08:25
DX: I87.2 Venous insufficiency (chronic) (peripheral) (principal); L84 Corns and callosities; L97.819 Non-pressure chronic ulcer of other part of right lower leg with unspecified severity; Z79.82 Long term (current) use of aspirin
CPT/HCPCS: G0463

== ENCOUNTER 2016-12-24 14:40 | Outpatient (CLI) | payer MEDICARE, OTHER ==
[2016-12-24 15:56] VITALS: BP 139/62; PULSE 51; TEMP 97.7
[2016-12-24 16:16] LABS: MEAN CELL VOLUME 96 fl (80.0-100.0); MEAN CORPUSCULAR HGB CONC 33 g/dl (33.0-37.0); MEAN PLATELET VOLUME 11.8 fl (7.4-10.4); PLATELET COUNT 170 K/mm3 (130-400); RED BLOOD COUNT 3.43 M/mm3 (4.10-5.30); WHITE BLOOD COUNT 12.1 K/mm3 (4.8-10.8)
[2016-12-24 16:17] LABS: ADJUSTED CALCIUM 9.5 mg/dL (8.4-10.2); ALBUMIN 4.3 gm/dL (3.5-5.0); BILIRUBIN,TOTAL 0.5 mg/dL (0.0-1.0); CALCIUM 9.7 mg/dL (8.4-10.2); CREATININE, serum 2.39 mg/dL (0.52-1.25); POTASSIUM 5.1 mmol/L (3.4-5.0); TOTAL PROTEIN 7.9 gm/dL (6.4-8.2)
[2016-12-24 16:23] LABS: HEMOGLOBIN 10.9 g/dl (12.5-16.0); MEAN CORPUSCULAR HEMOGLOBIN 32 pg (27.0-31.0)
[2016-12-24 16:47] LABS: THYROID STIMULATING HORMONE 1.28 uIU/mL (0.465-4.680)
== END 2016-12-24 17:02 | disposition home or self-care (01) ==
LOC: EUO 14:40
PROVIDERS: Family Medicine; Internal Medicine
DX: E11.22 Type 2 diabetes mellitus with diabetic chronic kidney disease (principal); N18.3 Chronic kidney disease, stage 3 (moderate); E03.9 Hypothyroidism, unspecified; E55.9 Vitamin D deficiency, unspecified; N17.9 Acute kidney failure, unspecified; Z79.4 Long term (current) use of insulin
CPT/HCPCS: J1644

== ENCOUNTER 2017-01-10 14:53 | Outpatient (CLI) | payer MEDICARE, OTHER ==
[~2017-01-10] VITALS: Ht 160 cm; Wt 117.0 kg
[2017-01-10] MEDS ORDERED: CEPHALEXIN500 M1 PO (15:22)
[2017-01-10 15:55] LABS: BASO % 0.2 % (0.0-2.0); GRAN # 8.1 (1.4-6.5); GRAN % 78.8 % (42.2-75.2); LYMPH # 1.6 (1.2-3.4); LYMPH % 15.3 % (20.0-51.0); MEAN CELL VOLUME 95 fl (80.0-100.0); MEAN CORPUSCULAR HGB CONC 33 g/dl (33.0-37.0); MEAN PLATELET VOLUME 11.4 fl (7.4-10.4); MONO # 0.5 (0.1-0.6); PLATELET COUNT 170 K/mm3 (130-400); RED BLOOD COUNT 3.25 M/mm3 (4.10-5.30); WHITE BLOOD COUNT 10.3 K/mm3 (4.8-10.8)
[2017-01-10 15:57] VITALS: BP 129/59; PULSE 63; TEMP 98.8
[2017-01-10 16:18] LABS: HEMOGLOBIN 10.1 g/dl (12.5-16.0); MEAN CORPUSCULAR HEMOGLOBIN 31 pg (27.0-31.0)
[2017-01-10 16:32] LABS: CALCIUM 9.9 mg/dL (8.4-10.2); CREATININE, serum 1.76 mg/dL (0.52-1.25); POTASSIUM 4.5 mmol/L (3.4-5.0)
[2017-01-11 00:08] LABS: ALBUMIN/CREATININE RATIO URINE 62.2 mg/g (0.0-29.0); URINE MICROALBUMIN 2.8 mg/dL (0.0-1.7)
== END 2017-01-10 16:12 | disposition home or self-care (01) ==
LOC: EUO 14:53
PROVIDERS: Internal Medicine
DX: N17.9 Acute kidney failure, unspecified (principal)
CPT/HCPCS: J1644

== ENCOUNTER 2017-02-04 09:48 | Outpatient (CLI) | payer MEDICARE, OTHER ==
[~2017-02-04] VITALS: Ht 160 cm; Wt 123.0 kg
[~2017-02-04 09:48] MED LIST changes: +CEPHALEXIN500 M1 PO
[2017-02-04 10:43] VITALS: BP 140/64; PULSE 58; TEMP 97.9
== END 2017-02-04 10:45 | disposition home or self-care (01) ==
LOC: EUO 09:48
DX: E11.22 Type 2 diabetes mellitus with diabetic chronic kidney disease (principal); N18.3 Chronic kidney disease, stage 3 (moderate); Z79.4 Long term (current) use of insulin
CPT/HCPCS: J1644

== ENCOUNTER 2017-02-18 11:15 | Outpatient (RCR) | payer MEDICARE, OTHER | END 2017-03-12 11:52 | disposition home or self-care (01) | LOC: WSPT 11:15 | DX: I83.009 Varicose veins of unspecified lower extremity with ulcer of unspecified site (principal); M79.89 Other specified soft tissue disorders | CPT/HCPCS: G8978-GP; G8979-GP; G8980-GP ==

== ENCOUNTER 2017-03-06 15:23 | Outpatient (CLI) | payer MEDICARE, OTHER ==
[2017-03-06 15:58] VITALS: BP 135/59; PULSE 64; TEMP 97.4
[2017-03-06 16:11] LABS: CALCIUM 9.4 mg/dL (8.4-10.2); CREATININE, serum 1.56 mg/dL (0.52-1.25); POTASSIUM 3.6 mmol/L (3.4-5.0)
== END 2017-03-06 16:04 | disposition home or self-care (01) ==
LOC: EUO 15:23
PROVIDERS: Internal Medicine
DX: N18.3 Chronic kidney disease, stage 3 (moderate) (principal); Z45.2 Encounter for adjustment and management of vascular access device
CPT/HCPCS: J1644

== ENCOUNTER 2017-04-10 15:41 | Outpatient (CLI) | payer MEDICARE, OTHER ==
[2017-04-10 16:07] VITALS: BP 139/58; PULSE 63; TEMP 97.4
== END 2017-04-10 16:44 | disposition home or self-care (01) ==
LOC: EUO 15:41
DX: N17.9 Acute kidney failure, unspecified (principal); Z79.899 Other long term (current) drug therapy
CPT/HCPCS: J1644

== ENCOUNTER 2017-05-12 10:34 | Emergency (ER) | payer MEDICARE, OTHER ==
[~2017-05-12] VITALS: Ht 154.9 cm; Wt 127.3 kg
[2017-05-12 10:44] VITALS: BP 170/72; TEMP 97.8
[2017-05-12 11:35] LABS: BASO # 0.1 (0.0-0.2); BASO % 0.7 % (0.0-2.0); EOS # 0.6 (0.0-0.7); EOS % 7.3 % (0-4.0); GRAN # 4.8 (1.4-6.5); GRAN % 57.2 % (42.2-75.2); HEMATOCRIT 33.6 % (37.0-47.0); HEMOGLOBIN 10.8 g/dl (12.5-16.0); LYMPH # 1.9 (1.2-3.4); MEAN CELL VOLUME 92 fl (80.0-100.0); MEAN CORPUSCULAR HEMOGLOBIN 30 pg (27.0-31.0); MEAN CORPUSCULAR HGB CONC 32 g/dl (33.0-37.0); MEAN PLATELET VOLUME 10.6 fl (7.4-10.4); MONO % 11.2 % (1.7-9.3); PLATELET COUNT 153 K/mm3 (130-400); RED BLOOD COUNT 3.64 M/mm3 (4.10-5.30); REDCELL DISTRIBUTION WIDTH-CV 16.3 % (11.5-14.5)
[2017-05-12 11:45] LABS: ALBUMIN 4.2 gm/dL (3.5-5.0); BILIRUBIN,TOTAL 0.5 mg/dL (0.0-1.0); CALCIUM 9.3 mg/dL (8.4-10.2); CREATININE, serum 1.47 mg/dL (0.52-1.25); POTASSIUM 3.8 mmol/L (3.4-5.0); TOTAL PROTEIN 7.9 gm/dL (6.4-8.2)
[2017-05-12 11:56] LABS: TROPONIN-I 0.012 ng/mL (0.000-0.034)
[2017-05-12] MEDS ORDERED: RT ADVAIR HFA 1112 G IH (11:57)
[2017-05-12] MEDS ORDERED: LASIX 20MG TABL20 MG PO (12:03)
[2017-05-12] MEDS ORDERED: NEURONTIN300 MG/CAP PO (12:04)
[2017-05-12] MEDS ORDERED: LIDODERM 5% PATC1 EA TP (12:08)
[2017-05-12] MEDS ORDERED: MICARDIS80 MG PO (12:09)
[2017-05-12] MEDS ORDERED: K-DUR 10 MEQ T10 MEQ PO (12:14)
[2017-05-12] MEDS ORDERED: CLEOCIN HC150 MG/CAP PO (12:15)
[2017-05-12] MEDS ORDERED: CEPHALEXIN500 M1 PO (12:15)
[2017-05-12] MEDS ORDERED: ZYRTEC 10MG10 MG PO (12:16)
[2017-05-12] MEDS ORDERED: PREDNISONE20 MG PO (13:14)
[2017-05-12 13:35] VITALS: PULSE 72
== END 2017-05-12 13:35 | disposition home or self-care (01) ==
LOC: COL.ER 10:34
PROVIDERS: Emergency Medicine
DX: J45.909 Unspecified asthma, uncomplicated (principal); J20.9 Acute bronchitis, unspecified; E11.9 Type 2 diabetes mellitus without complications; I10 Essential (primary) hypertension; E78.5 Hyperlipidemia, unspecified; Z79.4 Long term (current) use of insulin; Z79.82 Long term (current) use of aspirin; Z79.51 Long term (current) use of inhaled steroids
CPT/HCPCS: J7512

== ENCOUNTER 2017-05-27 10:53 | Outpatient (CLI) | payer MEDICARE, OTHER ==
[~2017-05-27] VITALS: Ht 154.9 cm; Wt 125.0 kg
[~2017-05-27 10:53] MED LIST changes: +PREDNISONE20 MG PO
[2017-05-27] MEDS ORDERED: MUCINEX1200 MG PO (11:24)
[2017-05-27 11:30] VITALS: BP 137/67; PULSE 56; TEMP 98.5
[2017-05-27 12:05] LABS: CALCIUM 8.8 mg/dL (8.4-10.2); CREATININE, serum 1.68 mg/dL (0.52-1.25); POTASSIUM 3.7 mmol/L (3.4-5.0)
[2017-05-27 16:11] LABS: BASO # 0.1 (0.0-0.2); BASO % 0.5 % (0.0-2.0); EOS # 0.5 (0.0-0.7); EOS % 4.3 % (0-4.0); GRAN # 8.2 (1.4-6.5); GRAN % 64.3 % (42.2-75.2); LYMPH # 2.7 (1.2-3.4); LYMPH % 21.2 % (20.0-51.0); MEAN CELL VOLUME 93 fl (80.0-100.0); MEAN CORPUSCULAR HGB CONC 32 g/dl (33.0-37.0); MEAN PLATELET VOLUME 12.7 fl (7.4-10.4); MONO # 1.2 (0.1-0.6); MONO % 9.1 % (1.7-9.3); PLATELET COUNT 169 K/mm3 (130-400); RED BLOOD COUNT 3.74 M/mm3 (4.10-5.30); REDCELL DISTRIBUTION WIDTH-CV 17.6 % (11.5-14.5)
[2017-05-27 16:13] LABS: HEMATOCRIT 34.6 % (37.0-47.0); HEMOGLOBIN 11.2 g/dl (12.5-16.0); MEAN CORPUSCULAR HEMOGLOBIN 30 pg (27.0-31.0)
[2017-05-27 16:28] LABS: ALBUMIN 3.4 gm/dL (3.5-5.0); BILIRUBIN,TOTAL 0.7 mg/dL (0.0-1.0); TOTAL PROTEIN 6.8 gm/dL (6.4-8.2)
[2017-05-27 16:59] LABS: THYROID STIMULATING HORMONE 2.15 uIU/mL (0.465-4.680)
== END 2017-05-27 16:12 | disposition home or self-care (01) ==
LOC: EUO 10:53
PROVIDERS: Internal Medicine; Internal Medicine Nephrology
DX: Z45.2 Encounter for adjustment and management of vascular access device (principal); E11.9 Type 2 diabetes mellitus without complications; Z95.9 Presence of cardiac and vascular implant and graft, unspecified
CPT/HCPCS: J1644

== ENCOUNTER 2017-06-29 10:23 | Observation (INO) | payer MEDICARE, OTHER ==
[~2017-06-29] VITALS: Ht 160 cm; Wt 129.5 kg
[~2017-06-29 10:23] MED LIST changes: +MUCINEX1200 MG PO
[2017-06-29 10:59] LABS: BASO % 0.1 % (0.0-2.0); GRAN % 81.6 % (42.2-75.2); LYMPH # 1.2 (1.2-3.4); LYMPH % 14.2 % (20.0-51.0); MEAN CELL VOLUME 89 fl (80.0-100.0); MEAN CORPUSCULAR HGB CONC 34 g/dl (33.0-37.0); MEAN PLATELET VOLUME 12.4 fl (7.4-10.4); MONO # 0.2 (0.1-0.6); MONO % 2.7 % (1.7-9.3); PLATELET COUNT 176 K/mm3 (130-400); RED BLOOD COUNT 3.66 M/mm3 (4.10-5.30); REDCELL DISTRIBUTION WIDTH-CV 16.1 % (11.5-14.5)
[2017-06-29 11:06] LABS: HEMATOCRIT 32.7 % (37.0-47.0); HEMOGLOBIN 11.1 g/dl (12.5-16.0); MEAN CORPUSCULAR HEMOGLOBIN 30 pg (27.0-31.0)
[2017-06-29] MEDS ORDERED: VENTOLIN0.09 MG IH (11:24)
[2017-06-29 11:25] LABS: BILIRUBIN,TOTAL 0.4 mg/dL (0.0-1.0); CALCIUM 9.4 mg/dL (8.4-10.2); CREATININE, serum 2.32 mg/dL (0.52-1.25); MAGNESIUM 2.8 mg/dL (1.6-2.3); PHOSPHOROUS 3.3 mg/dL (2.5-4.5); POTASSIUM 3.8 mmol/L (3.4-5.0); TOTAL PROTEIN 8.4 gm/dL (6.4-8.2)
[2017-06-29] MEDS ORDERED: CLARITIN 1010 MG/TAB PO (11:32)
[2017-06-29] MEDS ORDERED: CORICIDIN COUGH1 TAB PO (11:33)
[2017-06-29] MEDS ORDERED: FLONASEALLERGY NS (11:34)
[2017-06-29] MEDS ORDERED: EPA FISH OIL1 SGL PO (11:34)
[2017-06-29] MEDS ORDERED: BENICAR40 MG PO (11:36)
[2017-06-29] MEDS ORDERED: MULTIPLE VITAMI1 CAP PO (12:13)
[2017-06-29 13:13] LABS: COLLECTION METHOD CLEAN CATCH
[2017-06-29 13:27] LABS: PH 7 (5-8); URINE APPEARANCE Clear; URINE BACTERIA Rare /hpf; URINE BILIRUBIN Negative (NEGATIVE); URINE BLOOD Negative (NEGATIVE); URINE COLOR Yellow; URINE GLUCOSE 2+ (NEGATIVE); URINE KETONE Negative (NEGATIVE); URINE LEUKOCYTE ESTERASE 1+ (NEGATIVE); URINE NITRATE Negative (NEGATIVE); URINE PROTEIN(semi-quant) Negative (NEGATIVE); URINE UROBILINOGEN Negative (NEGATIVE)
[2017-06-29 16:11] VITALS: BP 170/73; PULSE 59; TEMP 98.9
[2017-06-29 16:39] VITALS: BP 130/68; PULSE 59; TEMP 98.9
[2017-06-29 17:16] LABS: COLLECTION METHOD CLEAN CATCH
[2017-06-29 17:25] LABS: PH 7 (5-8); URINE APPEARANCE Clear; URINE BACTERIA Rare /hpf; URINE BILIRUBIN Negative (NEGATIVE); URINE BLOOD Negative (NEGATIVE); URINE COLOR Yellow; URINE GLUCOSE 1+ (NEGATIVE); URINE KETONE Negative (NEGATIVE); URINE LEUKOCYTE ESTERASE Negative (NEGATIVE); URINE NITRATE Negative (NEGATIVE); URINE PROTEIN(semi-quant) Negative (NEGATIVE); URINE RBC 0-2 /hpf; URINE UROBILINOGEN Negative (NEGATIVE)
[2017-06-29 20:15] VITALS: BP 174/63; PULSE 77; TEMP 98.6
[2017-06-30 00:25] VITALS: BP 139/66; PULSE 74; TEMP 98.4
[2017-06-30 04:46] VITALS: BP 154/77; PULSE 94; TEMP 98.5
[2017-06-30 07:46] LABS: CALCIUM 9.1 mg/dL (8.4-10.2); CREATININE, serum 1.77 mg/dL (0.52-1.25); POTASSIUM 3.7 mmol/L (3.4-5.0)
[2017-06-30 09:42] VITALS: BP 150/68; PULSE 67; TEMP 97.8
== END 2017-06-30 15:44 | disposition home or self-care (01) ==
LOC: COL.ER 10:23 → SURG 14:11
PROVIDERS: Emergency Medicine; Internal Medicine Nephrology
DX: I12.9 Hypertensive chronic kidney disease with stage 1 through stage 4 chronic kidney disease, or unspecified chronic kidney disease (principal); E11.22 Type 2 diabetes mellitus with diabetic chronic kidney disease; N18.3 Chronic kidney disease, stage 3 (moderate); E11.65 Type 2 diabetes mellitus with hyperglycemia; N17.9 Acute kidney failure, unspecified; E66.01 Morbid (severe) obesity due to excess calories; R60.0 Localized edema; J44.9 Chronic obstructive pulmonary disease, unspecified; G47.00 Insomnia, unspecified; D63.1 Anemia in chronic kidney disease; Z79.4 Long term (current) use of insulin; Z79.82 Long term (current) use of aspirin; Z88.0 Allergy status to penicillin; Z88.2 Allergy status to sulfonamides; Z88.8 Allergy status to other drugs, medicaments and biological substances; Z86.718 Personal history of other venous thrombosis and embolism
CPT/HCPCS: J1644; J1815; J7030

== ENCOUNTER 2017-07-04 11:11 | Outpatient (CLI) | payer MEDICARE, OTHER ==
[~2017-07-04] VITALS: Ht 160 cm; Wt 129.5 kg
[~2017-07-04 11:11] MED LIST changes: +BENICAR40 MG PO; +CORICIDIN COUGH1 TAB PO; +EPA FISH OIL1 SGL PO; +FLONASEALLERGY NS; +MULTIPLE VITAMI1 CAP PO; +VENTOLIN0.09 MG IH
[2017-07-04 11:27] VITALS: BP 124/58; PULSE 69; TEMP 98.2
[2017-07-04 12:15] LABS: CALCIUM 9.4 mg/dL (8.4-10.2); CREATININE, serum 2.24 mg/dL (0.52-1.25); POTASSIUM 3.6 mmol/L (3.4-5.0)
== END 2017-07-04 11:51 | disposition home or self-care (01) ==
LOC: EUO 11:11
PROVIDERS: Internal Medicine Nephrology
DX: N18.3 Chronic kidney disease, stage 3 (moderate) (principal)
CPT/HCPCS: J1644

== ENCOUNTER 2017-09-03 14:37 | Outpatient (CLI) | payer MEDICARE, OTHER ==
[2017-09-03 15:20] LABS: CALCIUM 9.4 mg/dL (8.4-10.2); CREATININE, serum 1.4 mg/dL (0.52-1.25); POTASSIUM 3.5 mmol/L (3.4-5.0)
[2017-09-03 15:28] VITALS: BP 141/61; PULSE 57; TEMP 97.4
[2017-09-03 17:12] LABS: COLLECTION METHOD CLEAN CATCH
[2017-09-03 17:22] LABS: PH 7 (5-8); SQUAMOUS EPITHELIAL 0-2 /hpf; URINE APPEARANCE Clear; URINE BACTERIA None Seen /hpf; URINE BILIRUBIN Negative (NEGATIVE); URINE BLOOD Negative (NEGATIVE); URINE COLOR Yellow; URINE GLUCOSE Negative (NEGATIVE); URINE KETONE Negative (NEGATIVE); URINE LEUKOCYTE ESTERASE Negative (NEGATIVE); URINE NITRATE Negative (NEGATIVE); URINE PROTEIN(semi-quant) Negative (NEGATIVE); URINE RBC 0-2 /hpf; URINE UROBILINOGEN Negative (NEGATIVE)
== END 2017-09-03 15:50 | disposition home or self-care (01) ==
LOC: EUO 14:37
PROVIDERS: Internal Medicine Nephrology
DX: R30.0 Dysuria (principal); N18.3 Chronic kidney disease, stage 3 (moderate)

== ENCOUNTER → 2017-09-11 | Outpatient (CLI) | payer MEDICARE, OTHER | LOC: COL.RAD 09:39 | DX: M62.58 Muscle wasting and atrophy, not elsewhere classified, other site (principal); K76.89 Other specified diseases of liver; N26.1 Atrophy of kidney (terminal); N20.0 Calculus of kidney; M41.86 Other forms of scoliosis, lumbar region; M47.816 Spondylosis without myelopathy or radiculopathy, lumbar region ==

== ENCOUNTER 2017-11-18 09:54 | Outpatient (CLI) | payer MEDICARE, OTHER ==
[~2017-11-18] VITALS: Ht 160 cm; Wt 120.4 kg
[2017-11-18 10:30] VITALS: BP 156/76; PULSE 61; TEMP 98.1
[2017-11-18 11:09] LABS: ALBUMIN 3.9 gm/dL (3.5-5.0); BILIRUBIN,TOTAL 0.8 mg/dL (0.0-1.0); CALCIUM 9.3 mg/dL (8.4-10.2); CHOLESTEROL RISK RATIO 2.7; CREATININE, serum 1.35 mg/dL (0.52-1.25); POTASSIUM 3.6 mmol/L (3.4-5.0); TOTAL PROTEIN 7.5 gm/dL (6.4-8.2)
[2017-11-18 11:39] LABS: THYROID STIMULATING HORMONE 2.36 uIU/mL (0.465-4.680)
== END 2017-11-18 10:50 | disposition home or self-care (01) ==
LOC: EUO 09:54
PROVIDERS: Internal Medicine
DX: E11.628 Type 2 diabetes mellitus with other skin complications (principal); E03.9 Hypothyroidism, unspecified; Z79.4 Long term (current) use of insulin; Z45.2 Encounter for adjustment and management of vascular access device; Z95.828 Presence of other vascular implants and grafts
CPT/HCPCS: J1644

== ENCOUNTER 2017-12-05 04:37 | Observation (INO) | payer MEDICARE, OTHER ==
[~2017-12-05] VITALS: Ht 160 cm; Wt 120.4 kg
[~2017-12-05 04:37] MED LIST changes: -PRIL40 PO; -TOPROL XL200 MG PO
[2017-12-05 05:06] LABS: BASO # 0.1 (0.0-0.2); BASO % 0.7 % (0.0-2.0); EOS # 0.4 (0.0-0.7); EOS % 4.6 % (0-4.0); GRAN # 4.3 (1.4-6.5); GRAN % 49.6 % (42.2-75.2); HEMOGLOBIN 11.5 g/dl (12.5-16.0); LYMPH % 34.4 % (20.0-51.0); MEAN CELL VOLUME 92 fl (80.0-100.0); MEAN CORPUSCULAR HEMOGLOBIN 30 pg (27.0-31.0); MEAN CORPUSCULAR HGB CONC 33 g/dl (33.0-37.0); MONO # 0.9 (0.1-0.6); MONO % 10.4 % (1.7-9.3); PLATELET COUNT 174 K/mm3 (130-400); REDCELL DISTRIBUTION WIDTH-CV 17.2 % (11.5-14.5)
[2017-12-05 05:13] LABS: HEMATOCRIT 34.8 % (37.0-47.0)
[2017-12-05 05:15] LABS: INR 0.9 (0.8-3.0); PROTHROMBIN TIME 10.6 SECONDS (9.7-12.8)
[2017-12-05 05:20] LABS: PARTIAL THROMBOPLASTIN TIME 103.9 SECONDS (26.0-37.0)
[2017-12-05 05:25] LABS: ALANINE AMINOTRANSFERASE 29 U/L (9-52); ALBUMIN 3.7 gm/dL (3.5-5.0); ALKALINE PHOSPHATASE 89 U/L (50-136); ANION GAP 6 mmol/L (7-16); AST,SGOT 26 U/L (15-37); BILIRUBIN,TOTAL 0.5 mg/dL (0.0-1.0); BLOOD UREA NITROGEN 31 mg/dL (7-17); CARBON DIOXIDE 35 mmol/L (22-30); CHLORIDE 98 mmol/L (98-107); CREATININE, serum 1.51 mg/dL (0.52-1.25); GLUCOSE 130 mg/dL (74-106); POTASSIUM 3.5 mmol/L (3.4-5.0); SODIUM 138 mmol/L (137-145); TOTAL PROTEIN 7.2 gm/dL (6.4-8.2)
[2017-12-05] MEDS ORDERED: RT ADVAIR HFA 1112 G IH (05:26)
[2017-12-05] MEDS ORDERED: NORCO 325 MG-51 TAB PO (05:31)
[2017-12-05 05:40] LABS: TROPONIN-I < 0.012 ng/mL (0.000-0.034)
[2017-12-05] MEDS ORDERED: CLEOCIN HC150 MG/CAP PO (05:41)
[2017-12-05] MEDS ORDERED: ZYRTEC 10MG10 MG PO (05:42)
[2017-12-05] MEDS ORDERED: CENTRUM SILVER1 CTB PO (05:43)
[2017-12-05] MEDS ORDERED: PHILLIPS'311 MG PO (05:44)
[2017-12-05] MEDS ORDERED: REFRESH TEARS 330 ML OU (05:45)
[2017-12-05] MEDS ORDERED: CORICIDIN HBP1 EAC1 PO (05:45)
[2017-12-05 15:47] LABS: HEMATOCRIT 35.6 % (37.0-47.0); HEMOGLOBIN 11.3 g/dl (12.5-16.0)
[2017-12-05 17:10] VITALS: BP 180/86; PULSE 60; TEMP 98.7
[2017-12-05 21:22] VITALS: BP 150/61; PULSE 63; TEMP 98.5
[2017-12-05 21:41] LABS: HEMOGLOBIN 11.3 g/dl (12.5-16.0)
[2017-12-05 21:44] LABS: HEMATOCRIT 34.1 % (37.0-47.0)
[2017-12-06 01:53] LABS: COLLECTION METHOD CLEAN CATCH
[2017-12-06 02:01] LABS: MUCOUS Present /lpf; PH 7 (5-8); SQUAMOUS EPITHELIAL 0-2 /hpf; URINE APPEARANCE Clear; URINE BACTERIA None Seen /hpf; URINE BILIRUBIN Negative (NEGATIVE); URINE BLOOD 1+ (NEGATIVE); URINE COLOR Yellow; URINE GLUCOSE Negative (NEGATIVE); URINE KETONE Negative (NEGATIVE); URINE LEUKOCYTE ESTERASE Trace (NEGATIVE); URINE NITRATE Negative (NEGATIVE); URINE PROTEIN(semi-quant) 1+ (NEGATIVE); URINE UROBILINOGEN Negative (NEGATIVE)
[2017-12-06 03:38] LABS: HEMATOCRIT 33.8 % (37.0-47.0)
[2017-12-06 04:28] VITALS: BP 149/61; PULSE 57; TEMP 97.8
[2017-12-06 07:26] LABS: HEMATOCRIT 34.1 % (37.0-47.0); HEMOGLOBIN 10.8 g/dl (12.5-16.0)
[2017-12-06 08:03] VITALS: BP 153/62; PULSE 57; TEMP 97.5
[2017-12-06 11:16] VITALS: BP 156/93; PULSE 56; TEMP 98
== END 2017-12-06 18:00 | disposition home or self-care (01) ==
LOC: COL.ER 04:37 → MEDICAL 09:05
PROVIDERS: Emergency Medicine; Hospitalist; Surgery
DX: R93.41 Abnormal radiologic findings on diagnostic imaging of renal pelvis, ureter, or bladder (principal); K92.2 Gastrointestinal hemorrhage, unspecified; I13.0 Hypertensive heart and chronic kidney disease with heart failure and stage 1 through stage 4 chronic kidney disease, or unspecified chronic kidney disease; E11.22 Type 2 diabetes mellitus with diabetic chronic kidney disease; N18.3 Chronic kidney disease, stage 3 (moderate); I50.9 Heart failure, unspecified; R60.0 Localized edema; I89.0 Lymphedema, not elsewhere classified; J44.9 Chronic obstructive pulmonary disease, unspecified; Z79.4 Long term (current) use of insulin; E66.01 Morbid (severe) obesity due to excess calories; E78.5 Hyperlipidemia, unspecified; Z86.718 Personal history of other venous thrombosis and embolism; M10.9 Gout, unspecified; G47.00 Insomnia, unspecified; D63.1 Anemia in chronic kidney disease; N32.89 Other specified disorders of bladder; Z90.49 Acquired absence of other specified parts of digestive tract; Z79.82 Long term (current) use of aspirin; Z82.3 Family history of stroke; Z84.1 Family history of disorders of kidney and ureter; Z88.0 Allergy status to penicillin; Z88.2 Allergy status to sulfonamides; Z88.8 Allergy status to other drugs, medicaments and biological substances
CPT/HCPCS: 99232-AI; 99239; G0008; G0378; J1815; J7030; Q9967

== ENCOUNTER → 2017-12-13 | Outpatient (CLI) | payer MEDICARE, OTHER ==
[~2017-12-13] VITALS: Ht 160 cm; Wt 120.9 kg
[~2017-12-13] MED LIST changes: +CORICIDIN HBP1 EAC1 PO; +NORCO 325 MG-51 TAB PO; +REFRESH TEARS 330 ML OU
[2017-12-13 15:20] VITALS: BP 151/67; PULSE 57; TEMP 97.6
[2017-12-13 15:21] LABS: HEMOGLOBIN 11.2 g/dl (12.5-16.0); MEAN CELL VOLUME 94 fl (80.0-100.0); MEAN CORPUSCULAR HEMOGLOBIN 30 pg (27.0-31.0); MEAN CORPUSCULAR HGB CONC 32 g/dl (33.0-37.0); PLATELET COUNT 180 K/mm3 (130-400); RED BLOOD COUNT 3.71 M/mm3 (4.10-5.30); REDCELL DISTRIBUTION WIDTH-CV 17.4 % (11.5-14.5)
[2017-12-13 15:23] LABS: HEMATOCRIT 34.7 % (37.0-47.0)
[2017-12-13 16:30] VITALS: BP 133/72; PULSE 112
[2017-12-13 17:00] VITALS: BP 134/68; PULSE 114
[2017-12-13 17:30] VITALS: BP 132/87; PULSE 114
[2017-12-13 18:00] VITALS: BP 135/82; PULSE 113
== END ==
LOC: EUO 14:38
PROVIDERS: Internal Medicine
DX: D64.9 Anemia, unspecified (principal)
CPT/HCPCS: J1644

== ENCOUNTER → 2017-12-19 | Outpatient (CLI) | payer MEDICARE, OTHER ==
[~2017-12-19] MED LIST changes: +TIROSINT75 MC1 PO
[2017-12-19 16:47] LABS: COLLECTION METHOD CLEAN CATCH
[2017-12-19 17:03] LABS: MUCOUS Present /lpf; PH 7 (5-8); SQUAMOUS EPITHELIAL 0-2 /hpf; URINE APPEARANCE Clear; URINE BACTERIA None Seen /hpf; URINE BILIRUBIN Negative (NEGATIVE); URINE BLOOD 1+ (NEGATIVE); URINE COLOR Yellow; URINE GLUCOSE Negative (NEGATIVE); URINE KETONE Negative (NEGATIVE); URINE LEUKOCYTE ESTERASE Negative (NEGATIVE); URINE NITRATE Negative (NEGATIVE); URINE PROTEIN(semi-quant) Negative (NEGATIVE); URINE UROBILINOGEN Negative (NEGATIVE); URINE WBC 0-2 /hpf
== END ==
LOC: COL.LAB 16:13
PROVIDERS: Internal Medicine
DX: A49.1 Streptococcal infection, unspecified site (principal); Z16.21 Resistance to vancomycin

== ENCOUNTER 2017-12-27 12:47 | Day surgery (SDC) | payer MEDICARE, OTHER ==
[~2017-12-27] VITALS: Ht 154.9 cm; Wt 120.7 kg
[2017-12-27] VITALS (11 sets, daily range): BP systolic 111–172; BP diastolic 64–99; PULSE 57–74; TEMP 97.6–98.5
[~2017-12-27 12:47] MED LIST changes: -TIROSINT75 MC1 PO
[2017-12-27] MEDS ORDERED: LANTUS100 U/ML SQ (14:52)
[2017-12-27] MEDS ORDERED: ASPIRIN 81M81 MG/TA2 PO (15:03)
[2017-12-27] MEDS ORDERED: TIROSINT75 MC1 PO (15:06)
[2017-12-28] VITALS (7 sets, daily range): BP systolic 126–155; BP diastolic 55–90; PULSE 59–83; TEMP 97.7–98.7
[2017-12-29 04:08] VITALS: BP 144/56; PULSE 69; TEMP 98.2
[2017-12-29 07:12] VITALS: BP 175/58; PULSE 71; TEMP 97.6
[2017-12-29 08:07] VITALS: BP 155/61
[2017-12-29 12:35] VITALS: BP 157/68; PULSE 91; TEMP 98.2
== END 2017-12-29 14:55 | disposition home or self-care (01) ==
LOC: SDCO 12:47 → SURG 18:45 → SDCO 12-29 14:55
DX: C67.4 Malignant neoplasm of posterior wall of bladder (principal); Q64.8 Other specified congenital malformations of urinary system; I13.0 Hypertensive heart and chronic kidney disease with heart failure and stage 1 through stage 4 chronic kidney disease, or unspecified chronic kidney disease; E11.22 Type 2 diabetes mellitus with diabetic chronic kidney disease; N18.9 Chronic kidney disease, unspecified; I50.9 Heart failure, unspecified; Z79.4 Long term (current) use of insulin; J44.9 Chronic obstructive pulmonary disease, unspecified; F32.9 Major depressive disorder, single episode, unspecified; K21.9 Gastro-esophageal reflux disease without esophagitis; K44.9 Diaphragmatic hernia without obstruction or gangrene; I25.10 Atherosclerotic heart disease of native coronary artery without angina pectoris; G89.29 Other chronic pain; I89.0 Lymphedema, not elsewhere classified; Z86.14 Personal history of Methicillin resistant Staphylococcus aureus infection; Z79.82 Long term (current) use of aspirin; Z79.899 Other long term (current) drug therapy
CPT/HCPCS: OP; J1815; J1956; J2405; J2704; J2765; J3010; J7030; Q9967

== ENCOUNTER 2018-01-13 15:05 | Outpatient (CLI) | payer MEDICARE, OTHER ==
[~2018-01-13] VITALS: Ht 154.9 cm; Wt 121.0 kg
[~2018-01-13 15:05] MED LIST changes: +TIROSINT75 MC1 PO
[2018-01-13 15:34] VITALS: BP 147/73; PULSE 73; TEMP 98.2
== END 2018-01-13 15:44 | disposition home or self-care (01) ==
LOC: EUO 15:05
DX: E03.9 Hypothyroidism, unspecified (principal); Z45.2 Encounter for adjustment and management of vascular access device; Z95.828 Presence of other vascular implants and grafts
CPT/HCPCS: J1644

== ENCOUNTER 2018-02-10 14:14 | Outpatient (CLI) | payer MEDICARE, OTHER ==
[~2018-02-10] VITALS: Ht 154.9 cm; Wt 121.0 kg
[2018-02-10 14:37] VITALS: BP 166/46; PULSE 52; TEMP 98.1
== END 2018-02-10 15:14 | disposition home or self-care (01) ==
LOC: EUO 14:14
DX: N18.3 Chronic kidney disease, stage 3 (moderate) (principal)
CPT/HCPCS: J1644

== ENCOUNTER 2018-03-17 14:37 | Outpatient (CLI) | payer MEDICARE, OTHER ==
[~2018-03-17] VITALS: Ht 154.9 cm; Wt 135.5 kg
[2018-03-17 15:15] LABS: CALCIUM 9.4 mg/dL (8.4-10.2); CREATININE, serum 1.38 mg/dL (0.52-1.25)
[2018-03-17 15:51] VITALS: BP 153/69; PULSE 73; TEMP 98.1
== END 2018-03-17 15:52 | disposition home or self-care (01) ==
LOC: EUO 14:37
PROVIDERS: Internal Medicine Nephrology
DX: E11.22 Type 2 diabetes mellitus with diabetic chronic kidney disease (principal); I15.8 Other secondary hypertension; N18.3 Chronic kidney disease, stage 3 (moderate); Z79.4 Long term (current) use of insulin
CPT/HCPCS: J1644

== ENCOUNTER 2018-03-27 10:56 | Day surgery (SDC) | payer MEDICARE, OTHER ==
[~2018-03-27] VITALS: Ht 160 cm; Wt 120.9 kg
[2018-03-27 11:37] VITALS: BP 185/76; PULSE 65; TEMP 98
--- NOTE | 2018-03-27 11:54 | NUR ---
TO RM AT 1107- CALL LIGHT IN REACH AT BEDSIDE.
--- NOTE | 2018-03-27 12:30 | NUR ---
PROCEDURE COMPLETE - UP TO BEDSIDE COMMODE WITH ASSIST. VOIDED AND ASSISTED DRESSED
--- NOTE | 2018-03-27 12:55 | NUR ---
RECEIVED DISCHARGED INSTRUCTIONS AND VERBALIZED UNDERSTANDING. PATIENT TO FOLLOW UP IN 6 MONTHS.
--- NOTE | 2018-03-27 13:00 | NUR ---
DISCHARGED PER WC BY NURSING STAFF TO [facility]
== END 2018-03-27 13:24 | disposition home or self-care (01) ==
LOC: SDCO 10:56
DX: Z08 Encounter for follow-up examination after completed treatment for malignant neoplasm (principal); Z85.51 Personal history of malignant neoplasm of bladder; E11.40 Type 2 diabetes mellitus with diabetic neuropathy, unspecified; E11.22 Type 2 diabetes mellitus with diabetic chronic kidney disease; Z79.4 Long term (current) use of insulin; I13.0 Hypertensive heart and chronic kidney disease with heart failure and stage 1 through stage 4 chronic kidney disease, or unspecified chronic kidney disease; N18.9 Chronic kidney disease, unspecified; I50.9 Heart failure, unspecified; Z79.899 Other long term (current) drug therapy; E66.9 Obesity, unspecified; J44.9 Chronic obstructive pulmonary disease, unspecified; E78.5 Hyperlipidemia, unspecified; Z86.14 Personal history of Methicillin resistant Staphylococcus aureus infection; M10.9 Gout, unspecified; Z86.718 Personal history of other venous thrombosis and embolism; Z79.82 Long term (current) use of aspirin; Z87.19 Personal history of other diseases of the digestive system

== ENCOUNTER 2018-04-14 11:13 | Outpatient (CLI) | payer MEDICARE, OTHER ==
[2018-04-14 11:48] VITALS: BP 117/83; PULSE 66; TEMP 97.8
== END 2018-04-14 11:50 | disposition home or self-care (01) ==
LOC: EUO 11:13
DX: Z45.2 Encounter for adjustment and management of vascular access device (principal)
CPT/HCPCS: J1644

== ENCOUNTER 2018-05-13 11:00 | Outpatient (RCR) | payer MEDICARE, OTHER ==
[2018-05-12 13:12] VITALS: BP 149/69; PULSE 70; TEMP 98
[~2018-05-13] VITALS: Ht 160 cm; Wt 126.0 kg
[2018-05-13 11:54] VITALS: BP 157/77; PULSE 69; TEMP 98.6
--- NOTE | 2018-05-13 11:55 | NUR ---
pt came back for lab redraw due to issues with yesterday;s specimen per request of medical lab technicianElba nielson.
[2018-05-13 12:01] LABS: CALCIUM 9.3 mg/dL (8.4-10.2); CREATININE, serum 1.39 mg/dL (0.52-1.25); POTASSIUM 4.2 mmol/L (3.4-5.0)
== END 2018-05-13 14:44 | disposition home or self-care (01) ==
LOC: EUO 11:00
PROVIDERS: Internal Medicine Nephrology
DX: N18.3 Chronic kidney disease, stage 3 (moderate) (principal); I15.8 Other secondary hypertension
CPT/HCPCS: J1644

== ENCOUNTER 2018-06-09 13:03 | Outpatient (CLI) | payer MEDICARE, OTHER ==
[~2018-06-09] VITALS: Ht 160 cm; Wt 124.5 kg
[2018-06-09 13:41] VITALS: BP 151/56; PULSE 63; TEMP 97.9
[2018-06-09 13:47] LABS: CALCIUM 9.4 mg/dL (8.4-10.2); CREATININE, serum 1.42 (0.52-1.25); POTASSIUM 3.9 mmol/L (3.4-5.0)
== END 2018-06-09 14:02 | disposition home or self-care (01) ==
LOC: EUO 13:03
PROVIDERS: Internal Medicine Nephrology
DX: N18.3 Chronic kidney disease, stage 3 (moderate) (principal); I15.8 Other secondary hypertension
CPT/HCPCS: J1644

== ENCOUNTER 2018-07-07 13:49 | Outpatient (CLI) | payer MEDICARE, OTHER ==
[~2018-07-07] VITALS: Ht 160 cm; Wt 123.0 kg
[2018-07-07 14:11] VITALS: BP 140/51; PULSE 49; TEMP 98.1
== END 2018-07-07 14:39 | disposition home or self-care (01) ==
LOC: EUO 13:49
DX: Z45.2 Encounter for adjustment and management of vascular access device (principal)
CPT/HCPCS: J1644

== ENCOUNTER 2018-08-04 14:11 | Outpatient (CLI) | payer MEDICARE, OTHER ==
[~2018-08-04] VITALS: Ht 160 cm; Wt 124.4 kg
[2018-08-04 14:47] VITALS: BP 98/84; PULSE 69; TEMP 97.9
[2018-08-04 14:56] LABS: CALCIUM 9.2 mg/dL (8.4-10.2); CREATININE, serum 1.71 (0.52-1.25); POTASSIUM 4.1 mmol/L (3.4-5.0)
== END 2018-08-04 14:48 | disposition home or self-care (01) ==
LOC: EUO 14:11
PROVIDERS: Internal Medicine Nephrology
DX: I12.9 Hypertensive chronic kidney disease with stage 1 through stage 4 chronic kidney disease, or unspecified chronic kidney disease (principal); N18.3 Chronic kidney disease, stage 3 (moderate)
CPT/HCPCS: J1644

== ENCOUNTER 2018-09-01 14:09 | Outpatient (CLI) | payer MEDICARE, OTHER ==
[~2018-09-01] VITALS: Ht 160 cm; Wt 121.3 kg
[2018-09-01 15:05] VITALS: BP 144/51; PULSE 69; TEMP 98.1
== END 2018-09-01 15:07 | disposition home or self-care (01) ==
LOC: EUO 14:09
DX: I15.8 Other secondary hypertension (principal); N18.3 Chronic kidney disease, stage 3 (moderate)
CPT/HCPCS: J1644

== ENCOUNTER 2018-09-25 10:18 | Day surgery (SDC) | payer MEDICARE, OTHER ==
[~2018-09-25] VITALS: Ht 162.6 cm; Wt 117.7 kg
[2018-09-25] MEDS ORDERED: RT ADVAIR HFA 1112 G IH (12:42)
[2018-09-25] MEDS ORDERED: TRULICITY0.75 MG/0. SQ (12:43)
[2018-09-25] MEDS ORDERED: CELEBREX 200MG200 MG PO (12:44)
[2018-09-25] MEDS ORDERED: ZAROXOLYN 2.52.5 MG PO (12:49)
[2018-09-25 12:56] VITALS: BP 152/67; PULSE 59; TEMP 989.2
--- NOTE | 2018-09-25 13:35 | NUR ---
Bedside cystoscopy completed using sterile technique by Dr. Deleon and Otoniel ADAMS. Patient tolerated procedure well. Pericares done and patient assisted with dressing. Transfers from cart to wheelchair with one person assist. Given dismissal instructions to force fluids and patient to call for blood in urine, fever, or inabiltiy to urinate.
--- NOTE | 2018-09-25 13:55 | NUR ---
Patient dismissed to home per private vehicle driven by spouse and taken to the front door per wheelchair and assisted into car.
== END 2018-09-25 13:55 | disposition home or self-care (01) ==
LOC: SDCO 10:18
DX: Z85.51 Personal history of malignant neoplasm of bladder (principal); Z88.0 Allergy status to penicillin; Z88.2 Allergy status to sulfonamides; Z88.1 Allergy status to other antibiotic agents

== ENCOUNTER 2018-10-06 14:02 | Outpatient (CLI) | payer MEDICARE, OTHER ==
[~2018-10-06] VITALS: Ht 162.6 cm; Wt 120.8 kg
[~2018-10-06 14:02] MED LIST changes: +CELEBREX 200MG200 MG PO; +TRULICITY0.75 MG/0. SQ; +ZAROXOLYN 2.52.5 MG PO
[2018-10-06 14:54] LABS: BASO # 0.1 (0.0-0.2); BASO % 0.5 % (0.0-2.0); EOS # 0.2 (0.0-0.7); EOS % 2.1 % (0-4.0); GRAN % 59.9 % (42.2-75.2); HEMOGLOBIN 11.1 g/dl (12.5-16.0); LYMPH # 2.8 (1.2-3.4); LYMPH % 27.8 % (20.0-51.0); MEAN CELL VOLUME 94 fl (80.0-100.0); MEAN CORPUSCULAR HEMOGLOBIN 31 pg (27.0-31.0); MEAN CORPUSCULAR HGB CONC 33 g/dl (33.0-37.0); MEAN PLATELET VOLUME 11.2 fl (7.4-10.4); MONO # 0.9 (0.1-0.6); MONO % 9.3 % (1.7-9.3); PLATELET COUNT 161 K/mm3 (130-400); REDCELL DISTRIBUTION WIDTH-CV 16.7 % (11.5-14.5)
[2018-10-06 15:00] VITALS: BP 128/55; PULSE 54; TEMP 98
[2018-10-06 15:01] LABS: ALBUMIN 3.9 gm/dL (3.5-5.0); BILIRUBIN,TOTAL 0.6 mg/dL (0.0-1.0); CALCIUM 9.3 mg/dL (8.4-10.2); CREATININE, serum 2.44 (0.52-1.25); POTASSIUM 4.5 mmol/L (3.4-5.0); TOTAL PROTEIN 7.4 gm/dL (6.4-8.2)
== END 2018-10-06 15:03 | disposition home or self-care (01) ==
LOC: EUO 14:02
PROVIDERS: Internal Medicine
DX: Z45.2 Encounter for adjustment and management of vascular access device (principal); E11.22 Type 2 diabetes mellitus with diabetic chronic kidney disease; N18.3 Chronic kidney disease, stage 3 (moderate); Z79.4 Long term (current) use of insulin
CPT/HCPCS: J1644

== ENCOUNTER 2018-11-05 14:55 | Outpatient (CLI) | payer MEDICARE, OTHER ==
[~2018-11-05] VITALS: Ht 154.9 cm; Wt 120.0 kg
[2018-11-05 15:10] VITALS: BP 135/65; PULSE 62; TEMP 97.8
== END 2018-11-05 16:24 | disposition home or self-care (01) ==
LOC: EUO 14:55
DX: Z45.2 Encounter for adjustment and management of vascular access device (principal)
CPT/HCPCS: J1644

== ENCOUNTER 2018-12-08 15:00 | Outpatient (CLI) | payer MEDICARE, OTHER ==
[~2018-12-08] VITALS: Ht 154.9 cm; Wt 120.0 kg
[2018-12-08 15:34] VITALS: BP 133/76; PULSE 58; TEMP 97.7
[2018-12-08 16:04] LABS: CALCIUM 9.6 mg/dL (8.4-10.2); CREATININE, serum 2.04 (0.52-1.25); POTASSIUM 3.8 mmol/L (3.4-5.0)
== END 2018-12-08 16:13 | disposition home or self-care (01) ==
LOC: EUO 15:00
PROVIDERS: Internal Medicine Nephrology
DX: N18.3 Chronic kidney disease, stage 3 (moderate) (principal); I15.8 Other secondary hypertension
CPT/HCPCS: J1644

== ENCOUNTER 2019-01-05 14:59 | Outpatient (CLI) | payer MEDICARE, OTHER ==
[~2019-01-05] VITALS: Ht 154.9 cm; Wt 118.0 kg
[2019-01-05 15:55] VITALS: BP 127/52; PULSE 60; TEMP 97.8
== END 2019-01-05 17:32 | disposition home or self-care (01) ==
LOC: EUO 14:59
DX: Z45.2 Encounter for adjustment and management of vascular access device (principal)
CPT/HCPCS: J1644

== ENCOUNTER 2019-02-02 09:17 | Outpatient (CLI) | payer MEDICARE, OTHER ==
[~2019-02-02] VITALS: Ht 154.9 cm; Wt 120.7 kg
[2019-02-02 09:48] VITALS: BP 145/57; PULSE 58; TEMP 97.4
[2019-02-02 14:08] VITALS: BP 121/68; PULSE 83
== END 2019-02-02 17:25 | disposition home or self-care (01) ==
LOC: EUO 09:17
DX: Z45.2 Encounter for adjustment and management of vascular access device (principal)
CPT/HCPCS: J1644

== ENCOUNTER 2019-02-10 16:07 | Inpatient (IN) | payer MEDICARE, OTHER ==
[~2019-02-10] VITALS: Ht 154.9 cm; Wt 115.7 kg
[2019-02-10 17:07] LABS: ALANINE AMINOTRANSFERASE 19 U/L (9-52); ALBUMIN 4.1 gm/dL (3.5-5.0); ALKALINE PHOSPHATASE 73 U/L (50-136); ANION GAP 11 mmol/L (7-16); AST,SGOT 33 U/L (15-37); BILIRUBIN,TOTAL 0.5 mg/dL (0.0-1.0); BLOOD UREA NITROGEN 59 mg/dL (7-17); CALCIUM 9.3 mg/dL (8.4-10.2); CARBON DIOXIDE 32 mmol/L (22-30); CHLORIDE 96 mmol/L (98-107); CREATININE, serum 2.39 (0.52-1.25); GLUCOSE 76 mg/dL (74-106); POTASSIUM 3.9 mmol/L (3.4-5.0); SODIUM 139 mmol/L (137-145); TOTAL PROTEIN 7.4 gm/dL (6.4-8.2)
[2019-02-10 17:09] LABS: BASO # 0.1 (0.0-0.2); BASO % 0.6 % (0.0-2.0); EOS # 0.8 (0.0-0.7); GRAN # 5.2 (1.4-6.5); GRAN % 55.7 % (42.2-75.2); HEMOGLOBIN 10.7 g/dl (12.5-16.0); LYMPH # 2.2 (1.2-3.4); LYMPH % 23.2 % (20.0-51.0); MEAN CELL VOLUME 100 fl (80.0-100.0); MEAN CORPUSCULAR HEMOGLOBIN 32 pg (27.0-31.0); MEAN CORPUSCULAR HGB CONC 32 g/dl (33.0-37.0); MONO # 1.1 (0.1-0.6); MONO % 12.1 % (1.7-9.3); PLATELET COUNT 154 K/mm3 (130-400); RED BLOOD COUNT 3.33 M/mm3 (4.10-5.30); REDCELL DISTRIBUTION WIDTH-CV 15.9 % (11.5-14.5)
[2019-02-10 17:18] LABS: HEMATOCRIT 33.3 % (37.0-47.0)
[2019-02-10 17:19] LABS: TROPONIN-I < 0.012 ng/mL (0.000-0.035)
[2019-02-10] MEDS ORDERED: RT ADVAIR HFA 2312 G IH (23:28)
[2019-02-11] VITALS (7 sets, daily range): BP systolic 95–168; BP diastolic 49–85; PULSE 67–90; TEMP 97.8–98
[2019-02-11 06:23] LABS: MEAN CELL VOLUME 98 fl (80.0-100.0); MEAN CORPUSCULAR HEMOGLOBIN 32 pg (27.0-31.0); MEAN CORPUSCULAR HGB CONC 32 g/dl (33.0-37.0); MEAN PLATELET VOLUME 10.5 fl (7.4-10.4); PLATELET COUNT 150 K/mm3 (130-400); RED BLOOD COUNT 3.49 M/mm3 (4.10-5.30); REDCELL DISTRIBUTION WIDTH-CV 15.4 % (11.5-14.5)
[2019-02-11 06:25] LABS: HEMATOCRIT 34.2 % (37.0-47.0)
[2019-02-11 06:38] LABS: CALCIUM 9.4 mg/dL (8.4-10.2); CREATININE, serum 2.01 (0.52-1.25); POTASSIUM 4.2 mmol/L (3.4-5.0)
[2019-02-11 07:04] LABS: BAND 8 % (0-10); LYMPHOCYTE 11 % (20.0-51.0); METAMYELOCYTE 1 % (0-0); NEUTROPHILS 79 % (42.0-75.2); PLATELET ESTIMATE NORMAL (NORMAL)
[2019-02-11 23:15] LABS: CALCIUM 9.4 mg/dL (8.4-10.2); CREATININE, serum 2.12 (0.52-1.25); MAGNESIUM 2.7 mg/dL (1.6-2.3); PHOSPHOROUS 3.2 mg/dL (2.5-4.5); POTASSIUM 4.3 mmol/L (3.4-5.0)
[2019-02-12] VITALS (334 sets, daily range): BP systolic 130–154; BP diastolic 63–74; PULSE 62–72; TEMP 97.4–98.2; O2SAT 68–100
[2019-02-12 06:06] LABS: BASO % 0.1 % (0.0-2.0); GRAN # 10.9 (1.4-6.5); GRAN % 85.3 % (42.2-75.2); LYMPH # 1.3 (1.2-3.4); LYMPH % 9.9 % (20.0-51.0); MEAN CELL VOLUME 96 fl (80.0-100.0); MEAN CORPUSCULAR HEMOGLOBIN 32 pg (27.0-31.0); MEAN CORPUSCULAR HGB CONC 33 g/dl (33.0-37.0); MONO # 0.5 (0.1-0.6); MONO % 3.9 % (1.7-9.3); PLATELET COUNT 158 K/mm3 (130-400); RED BLOOD COUNT 3.49 M/mm3 (4.10-5.30); REDCELL DISTRIBUTION WIDTH-CV 15.2 % (11.5-14.5)
[2019-02-12 06:13] LABS: CALCIUM 9.6 mg/dL (8.4-10.2)
[2019-02-12 06:19] LABS: HEMATOCRIT 33.6 % (37.0-47.0)
[2019-02-12] MEDS ORDERED: SPIRIVA RE2.5 MCG/Ac IH (10:01)
[2019-02-12] MEDS ORDERED: MUCUS RELIEF400 M1 PO (16:22)
[2019-02-12] MEDS ORDERED: PREDNISONE10 MG PO (16:25)
== END 2019-02-12 19:12 | disposition home health service (06) | DRG 191 ==
LOC: COL.ER 16:07 → MEDICAL 19:28 → ICU 19:28 → MEDICAL 23:59 → ICU 02-12 00:30
PROVIDERS: Emergency Medicine; Nurse Practitioner Family; Physician Assistant; ADMIT Hospitalist
DX: J44.1 Chronic obstructive pulmonary disease with (acute) exacerbation (principal); I50.32 Chronic diastolic (congestive) heart failure; I13.0 Hypertensive heart and chronic kidney disease with heart failure and stage 1 through stage 4 chronic kidney disease, or unspecified chronic kidney disease; L03.119 Cellulitis of unspecified part of limb; I25.10 Atherosclerotic heart disease of native coronary artery without angina pectoris; E11.42 Type 2 diabetes mellitus with diabetic polyneuropathy; E66.01 Morbid (severe) obesity due to excess calories; E11.22 Type 2 diabetes mellitus with diabetic chronic kidney disease; N18.9 Chronic kidney disease, unspecified; D63.1 Anemia in chronic kidney disease; M10.9 Gout, unspecified; B97.4 Respiratory syncytial virus as the cause of diseases classified elsewhere; D72.828 Other elevated white blood cell count; T38.0X5A Adverse effect of glucocorticoids and synthetic analogues, initial encounter; E03.9 Hypothyroidism, unspecified; E78.5 Hyperlipidemia, unspecified; E11.65 Type 2 diabetes mellitus with hyperglycemia; Z86.718 Personal history of other venous thrombosis and embolism; Z79.4 Long term (current) use of insulin; Z79.891 Long term (current) use of opiate analgesic; Z79.82 Long term (current) use of aspirin; Z88.0 Allergy status to penicillin; Z88.2 Allergy status to sulfonamides; Z88.1 Allergy status to other antibiotic agents
CPT/HCPCS: 99222-AI; 99239; A9284; J0456; J1815; J2920; J7050; J7512

== ENCOUNTER 2019-03-09 14:08 | Outpatient (CLI) | payer MEDICARE, OTHER ==
[~2019-03-09] VITALS: Ht 154.9 cm; Wt 117.6 kg
[~2019-03-09 14:08] MED LIST changes: +MUCUS RELIEF400 M1 PO; +RT ADVAIR HFA 2312 G IH; +SPIRIVA RE2.5 MCG/Ac IH
[2019-03-09 14:21] VITALS: BP 146/64; PULSE 65; TEMP 98.4
[2019-03-09 15:19] LABS: CALCIUM 8.7 mg/dL (8.4-10.2); CREATININE, serum 2.12 (0.52-1.25); POTASSIUM 4.5 mmol/L (3.4-5.0)
== END 2019-03-09 15:58 | disposition home or self-care (01) ==
LOC: EUO 14:08
PROVIDERS: Internal Medicine Nephrology
DX: I15.8 Other secondary hypertension (principal); N18.3 Chronic kidney disease, stage 3 (moderate); Z79.899 Other long term (current) drug therapy
CPT/HCPCS: J1644

== ENCOUNTER 2019-03-12 10:38 | Outpatient (RCR) | payer MEDICARE, OTHER ==
[2019-04-17] MEDS ORDERED: PERFOROMIS20 MCG/2 M IH (09:21)
[2019-04-17] MEDS ORDERED: NORCO 325 MG-51 TAB PO (09:22)
[2019-04-17] MEDS ORDERED: LEVAQUIN 750MG750 M1 PO ×2 (12:13→12:23)
[2019-04-17] MEDS ORDERED: PROBIOTIC ACID1 EAC3 PO (12:15)
[2019-04-20] MEDS ORDERED: NOVOLOG 100U100 U/M1 SQ (06:26)
[2019-04-23] MEDS ORDERED: LEVAQUIN 750MG750 M1 PO (11:10)
[2019-04-23] MEDS ORDERED: NEURONTIN300 MG/CAP PO (11:11)
[2019-04-23] MEDS ORDERED: ZYVOX PREM600 MG/300 IV (11:13)
== END 2019-05-14 14:17 | disposition home or self-care (01) ==
LOC: WSPT 10:38
DX: E11.9 Type 2 diabetes mellitus without complications (principal); M79.89 Other specified soft tissue disorders; I89.0 Lymphedema, not elsewhere classified

== ENCOUNTER 2019-04-06 12:31 | Outpatient (CLI) | payer MEDICARE, OTHER ==
[~2019-04-06] VITALS: Ht 154.9 cm; Wt 121.0 kg
[2019-04-06 13:39] VITALS: BP 151/87; PULSE 62; TEMP 98.1
== END 2019-04-06 16:15 | disposition home or self-care (01) ==
LOC: EUO 12:31
DX: N18.3 Chronic kidney disease, stage 3 (moderate) (principal); I15.8 Other secondary hypertension
CPT/HCPCS: J1644

== ENCOUNTER 2019-04-19 23:25 | Inpatient (IN) | payer MEDICARE, OTHER ==
[~2019-04-19] VITALS: Ht 154.9 cm; Wt 117.5 kg
[~2019-04-19 23:25] MED LIST changes: +LEVAQUIN 750MG750 M1 PO; +PERFOROMIS20 MCG/2 M IH; +PROBIOTIC ACID1 EAC3 PO
[2019-04-20] VITALS (684 sets, daily range): BP systolic 91–1114; BP diastolic 43–124; PULSE 69–150; TEMP 97.8–98.9; O2SAT 60–100
[2019-04-20 00:08] LABS: HEMOGLOBIN 11.4 g/dl (12.5-16.0); MEAN CELL VOLUME 98 fl (80.0-100.0); MEAN CORPUSCULAR HEMOGLOBIN 32 pg (27.0-31.0); MEAN CORPUSCULAR HGB CONC 33 g/dl (33.0-37.0); MEAN PLATELET VOLUME 11.7 fl (7.4-10.4); PLATELET COUNT 127 K/mm3 (130-400); RED BLOOD COUNT 3.57 M/mm3 (4.10-5.30); REDCELL DISTRIBUTION WIDTH-CV 16.8 % (11.5-14.5)
[2019-04-20 00:33] LABS: COLLECTION METHOD CATHETER
[2019-04-20 00:34] LABS: ALBUMIN 3.3 gm/dL (3.5-5.0); BILIRUBIN,TOTAL 0.5 mg/dL (0.0-1.0); CALCIUM 8.7 mg/dL (8.4-10.2); CREATININE, serum 4.39 (0.52-1.25); POTASSIUM 3.6 mmol/L (3.4-5.0); TOTAL PROTEIN 6.1 gm/dL (6.4-8.2)
[2019-04-20 00:37] LABS: HEMATOCRIT 34.9 % (37.0-47.0)
[2019-04-20 00:57] LABS: MUCOUS Present /lpf; PH 5 (5-8); URINE APPEARANCE Cloudy; URINE BACTERIA Rare /hpf; URINE BILIRUBIN Negative (NEGATIVE); URINE BLOOD Negative (NEGATIVE); URINE COLOR Yellow; URINE GLUCOSE Negative (NEGATIVE); URINE KETONE Trace (NEGATIVE); URINE LEUKOCYTE ESTERASE 2+ (NEGATIVE); URINE NITRATE Negative (NEGATIVE); URINE PROTEIN(semi-quant) Negative (NEGATIVE); URINE RBC 0-2 /hpf; URINE UROBILINOGEN Negative (NEGATIVE)
[2019-04-20 01:01] LABS: TROPONIN-I 0.057 ng/mL (0.000-0.035)
[2019-04-20 01:29] LABS: BAND 12 % (0-10); EOSINOPHIL 2 % (0-4); LYMPHOCYTE 15 % (20.0-51.0); NEUTROPHILS 59 % (42.0-75.2)
[2019-04-20 01:31] LABS: NUCLEATED RED BLOOD CELL 3 (0-6)
[2019-04-20] MEDS ORDERED: NOVOLOG 100U100 U/M1 SQ (06:26)
[2019-04-20 08:40] LABS: HEMOGLOBIN 10.5 g/dl (12.5-16.0); MEAN CELL VOLUME 99 fl (80.0-100.0); MEAN CORPUSCULAR HEMOGLOBIN 32 pg (27.0-31.0); MEAN CORPUSCULAR HGB CONC 33 g/dl (33.0-37.0); MEAN PLATELET VOLUME 12.2 fl (7.4-10.4); PLATELET COUNT 113 K/mm3 (130-400); RED BLOOD COUNT 3.24 M/mm3 (4.10-5.30); REDCELL DISTRIBUTION WIDTH-CV 16.8 % (11.5-14.5)
[2019-04-20 08:41] LABS: INR 1.1 (0.8-3.0); PROTHROMBIN TIME 12.5 SECONDS (9.7-12.8)
[2019-04-20 08:43] LABS: HEMATOCRIT 32.1 % (37.0-47.0)
[2019-04-20 08:46] LABS: CALCIUM 8.5 mg/dL (8.4-10.2); CREATININE, serum 4.56 (0.52-1.25); POTASSIUM 3.6 mmol/L (3.4-5.0)
--- NOTE | 2019-04-20 10:58 | NUR ---
Follow-up visit; Patient thanked Wound Care Specialist for looking in on her and offering God's blessings.
--- NOTE | 2019-04-20 13:28 | NUR ---
Plan: To return to [facility] for SNF CC. Assessment: SW met with patient in room with DTR-in-law Bailey . Patient reports that her Linoel and her Son Corky are care support and EMR contacts. Patient does not have a POA. Patient reports that she pays out of pocket for individualized care four hours a day five days a week. Patient shares that she uses a Walker and CPAP, no O2, Patient reports that she use [facility] on [address] for RX. Patient reports that she also has a compression machine for her legs at home that she uses twice a day and compression socks that she uses daily. PCP reported as [facility]. Patient reports that she did not have a follow-up appointment because she went to the SNF. Patients that she worked with [facility] after her last stay for PT. Patient denies having any medications changes at last DC. Action: Will continue to follow for care.
--- NOTE | 2019-04-20 16:00 | NUR ---
Pt unable to urinate, Bladder Scan revealed a range of 450-500mL Attempt made to notify MD Ami with no answer and no voicemailbox Attempt then made to notify JEANIE Franco with no answer
--- NOTE | 2019-04-20 19:15 | NUR ---
Received report from BRYAN Art.
--- NOTE | 2019-04-20 23:52 | NUR ---
Dr. Garcia notified of patient's frequent MAPs below 65 throughout the day. Received orders to bolus 500mL NS now. Will continue to monitor.
[2019-04-21] VITALS (1052 sets, daily range): BP systolic 102–122; BP diastolic 50–66; PULSE 71–90; TEMP 97.9–98.8; O2SAT 61–100
[2019-04-21 05:52] LABS: BASO % 0.2 % (0.0-2.0); EOS # 0.2 (0.0-0.7); EOS % 2.3 % (0-4.0); GRAN # 5.1 (1.4-6.5); GRAN % 53.8 % (42.2-75.2); LYMPH # 2.9 (1.2-3.4); LYMPH % 31.2 % (20.0-51.0); MEAN CELL VOLUME 98 fl (80.0-100.0); MEAN CORPUSCULAR HGB CONC 33 g/dl (33.0-37.0); MEAN PLATELET VOLUME 11.3 fl (7.4-10.4); MONO # 0.9 (0.1-0.6); MONO % 9.4 % (1.7-9.3); PLATELET COUNT 88 K/mm3 (130-400); RED BLOOD COUNT 2.92 M/mm3 (4.10-5.30); REDCELL DISTRIBUTION WIDTH-CV 16.8 % (11.5-14.5)
[2019-04-21 05:56] LABS: ALBUMIN 2.8 gm/dL (3.5-5.0); BILIRUBIN,TOTAL 0.6 mg/dL (0.0-1.0); CALCIUM 7.4 mg/dL (8.4-10.2); CREATININE, serum 3.25 (0.52-1.25); HEMATOCRIT 28.5 % (37.0-47.0); HEMOGLOBIN 9.5 g/dl (12.5-16.0); MEAN CORPUSCULAR HEMOGLOBIN 33 pg (27.0-31.0); POTASSIUM 3.5 mmol/L (3.4-5.0); TOTAL PROTEIN 5.2 gm/dL (6.4-8.2)
[2019-04-21 06:01] LABS: INR 1.1 (0.8-3.0); PROTHROMBIN TIME 12.4 SECONDS (9.7-12.8)
--- NOTE | 2019-04-21 07:15 | NUR ---
Report given to BRYAN Art.
--- NOTE | 2019-04-21 08:19 | NUR ---
Pt having difficulty eating and drinking d/t shaking of arms and hands, pt states this is new for her. Pt quite frustrated at this d/t loss of independence of eating/drinking.
--- NOTE | 2019-04-21 10:49 | NUR ---
ZHAO student attended clinical rounds with the team. The patient has orders to tranfer to medical floor this day. ZHAO student faxed updates to Bryan at [facility].
[2019-04-22] VITALS (523 sets, daily range): BP systolic 101–128; BP diastolic 44–68; PULSE 75–86; TEMP 97.4–98; O2SAT 62–100
--- NOTE | 2019-04-22 02:07 | NUR ---
SPOKE TO CATE BACA. REGARDING THE PATIENTS BP'S BEING LOW 90'S/40'S WITH MAPS <65. ORDERED TO GIVE 500ML BOLUS OF NS AND TO CTM AND REPORT BACK TO HER.
--- NOTE | 2019-04-22 03:03 | NUR ---
NOTIFIED KEVEN ESPOSITO, THAT THE PATIENTS SBP IS IN 100'S AND DBP IS STILL 40'S BUT MAPS ARE STILL <65. SHE SAID TO MONITOR UOP AND MENTAL STATUS AND TO NOTIFY HER IF SBP DROPS BELOW 90 AND UOP BECOMES LESS.
[2019-04-22 05:19] LABS: BASO % 0.4 % (0.0-2.0); EOS # 0.2 (0.0-0.7); EOS % 2.3 % (0-4.0); GRAN # 4.3 (1.4-6.5); GRAN % 55.2 % (42.2-75.2); LYMPH # 2.1 (1.2-3.4); MEAN CELL VOLUME 98 fl (80.0-100.0); MEAN CORPUSCULAR HGB CONC 32 g/dl (33.0-37.0); MEAN PLATELET VOLUME 11.3 fl (7.4-10.4); MONO # 0.9 (0.1-0.6); MONO % 11.9 % (1.7-9.3); PLATELET COUNT 86 K/mm3 (130-400); RED BLOOD COUNT 2.84 M/mm3 (4.10-5.30); REDCELL DISTRIBUTION WIDTH-CV 16.7 % (11.5-14.5)
[2019-04-22 05:22] LABS: HEMATOCRIT 27.8 % (37.0-47.0); MEAN CORPUSCULAR HEMOGLOBIN 32 pg (27.0-31.0)
[2019-04-22 05:33] LABS: PROTHROMBIN TIME 11.4 SECONDS (9.7-12.8)
[2019-04-22 05:42] LABS: ALBUMIN 2.6 gm/dL (3.5-5.0); BILIRUBIN,TOTAL 0.6 mg/dL (0.0-1.0); CALCIUM 7.7 mg/dL (8.4-10.2); CREATININE, serum 2.24 (0.52-1.25)
--- NOTE | 2019-04-22 07:20 | NUR ---
Bedside shift report received from BRYAN Leslie. Patient is awake, alert, has no complaints or concerns at this time. Full assessment completed. Bed in lowest position. Side rails up x3. Call light within reach.
--- NOTE | 2019-04-22 10:00 | NUR ---
Paula, palliative care nurse, notified of consult at this time.
--- NOTE | 2019-04-22 10:01 | NUR ---
Hospitalist is recommending a long-term care hospital. DRY FOLDER CLOTH student met with the patient and provided Medicare.gov's list of LTACs. The patient chose [facility]. Referral was sent. Carlos from [facility] will meet with the patient this day. financial services associate will continue to follow.
--- NOTE | 2019-04-22 10:57 | NUR ---
Met with patient at bedside this morning. Dr Garcia and treatment team discussed going to [facility] as a recommendation for her goal of getting better. It is still her hope that she will be able to go home if she is getting better but recognizes that this may not be possible. She did ask me to try to oget kameron of her , Sheldon, but could not reach him. When I reached her son, Corky, he reported that his father was in the ER at [facility] for a hernia. Corky will be here after work to talk with his mother and will give her an update regarding his father. Pt was provided with this information and verbalizes understanding. Palliative care consult was started.
--- NOTE | 2019-04-22 11:22 | NUR ---
A pallative care consult was ordered for the patient. fiscal services manager will continue to follow.
--- NOTE | 2019-04-22 12:56 | NUR ---
Spoke with daughter in law, Bailey about palliative care consult and [facility] screen being done. Family is aware of patient's poor status and is anxious to hear results of the screen and get further information. Encouraged Bailey to contact social director and/or primary nurse today for results of oscreen and how family can get more information.
--- NOTE | 2019-04-22 14:14 | NUR ---
Patient continues to have some back pain even after administering [place]. Patient repositioned, head of bed elevated and pillows adjusted. Patient states her back feels much better after repositioning and doing some ROM exercises.
--- NOTE | 2019-04-22 14:58 | NUR ---
Carlos from [facility] reports they can accept the patient. The patient can transfer tomorrow, 04/22. The patient was in agreeance. [employer] student contacted the patient's son, Corky and he reports he and the patient's , Lionel are also in agreeance. [employer] student informed the team. pharmacy services director will continue to follow.
--- NOTE | 2019-04-22 16:33 | NUR ---
FOREST PRODUCTS GATHERER student contacted [facility] and they are agreeable to transport the patient on 04/23 at 1100. patient services technician will continue to follow.
--- NOTE | 2019-04-22 19:05 | NUR ---
Received report from BRYAN Paniagua.
--- NOTE | 2019-04-22 19:10 | NUR ---
Bedside shift report given to BRYAN Dominguez.
--- NOTE | 2019-04-22 22:45 | NUR ---
Patient reports severe pain in legs and back, unreleived by repositioning and relaxation techniques. Yen notified. Received orders for Niland 5/325 mg, 1-2 tabs PO every 6 hours as needed for pain.
[2019-04-23] VITALS (182 sets, daily range): BP systolic 106–137; BP diastolic 47–76; PULSE 75–84; TEMP 97.6–98.8; O2SAT 64–100
--- NOTE | 2019-04-23 03:48 | NUR ---
Notified Yen of patient's softening blood pressures with MAPs below 65. Received orders to bolus 500 mL of NS now. Will continue to monitor.
[2019-04-23 05:22] LABS: BASO % 0.2 % (0.0-2.0); EOS # 0.3 (0.0-0.7); EOS % 3.2 % (0-4.0); GRAN # 4.6 (1.4-6.5); GRAN % 56.4 % (42.2-75.2); LYMPH # 2.1 (1.2-3.4); MEAN CELL VOLUME 99 fl (80.0-100.0); MEAN CORPUSCULAR HGB CONC 33 g/dl (33.0-37.0); MONO % 12.3 % (1.7-9.3); PLATELET COUNT 100 K/mm3 (130-400); RED BLOOD COUNT 2.85 M/mm3 (4.10-5.30); REDCELL DISTRIBUTION WIDTH-CV 16.7 % (11.5-14.5)
[2019-04-23 05:29] LABS: PROTHROMBIN TIME 11.4 SECONDS (9.7-12.8)
[2019-04-23 05:34] LABS: ALBUMIN 2.8 gm/dL (3.5-5.0); BILIRUBIN,TOTAL 0.7 mg/dL (0.0-1.0); CALCIUM 8.5 mg/dL (8.4-10.2); CHOLESTEROL RISK RATIO 2.4; CREATININE, serum 1.78 (0.52-1.25); HEMATOCRIT 28.1 % (37.0-47.0); HEMOGLOBIN 9.2 g/dl (12.5-16.0); MEAN CORPUSCULAR HEMOGLOBIN 32 pg (27.0-31.0); POTASSIUM 4.3 mmol/L (3.4-5.0); TOTAL PROTEIN 5.2 gm/dL (6.4-8.2)
[2019-04-23 06:00] LABS: TSH w REFLEX 4.58 uIU/mL (0.465-4.680)
--- NOTE | 2019-04-23 07:43 | NUR ---
Report given to BRYAN Art.
--- NOTE | 2019-04-23 08:29 | NUR ---
Carlos reports that the patient's transfer time needs to be at 1430 vs 1100. BUSINESS SUPERVISOR student informed the team, [facility] and the patient's nurse to inform the patient. Social service will continue to follow.
[2019-04-23] MEDS ORDERED: LEVAQUIN 750MG750 M1 PO (11:10)
[2019-04-23] MEDS ORDERED: NEURONTIN300 MG/CAP PO (11:11)
[2019-04-23] MEDS ORDERED: ZYVOX PREM600 MG/300 IV (11:13)
--- NOTE | 2019-04-23 13:33 | NUR ---
PATIENT STATED HER PAIN IS BETTER AND AT CONTROL FOR HER.
--- NOTE | 2019-04-23 13:37 | NUR ---
The patient is to tentatively discharge today, 04/23 to [facility] in [place]. Carlos from [facility] reports the transport time needs to be at 1630. [facility] was contacted of the time change and they were in agreeance. The patient, patient's family, and the team were informed, all were in agreeance. The room number is 132, Dr. Arellano is the receiving physician, phone number for report is and fax discharge orders to . GRINDER SET UP OPERATOR THREAD TOOL student faxed discharge orders. GRINDER SET UP OPERATOR THREAD TOOL student presented the IM form to the patient and the patient's . The patient understood and had her sign the form due to having a shakey hand. A copy was provided to the patient and original was placed in the chart. There are no additional needs at this time.
--- NOTE | 2019-04-23 16:26 | NUR ---
EMS crew here to transfer pt.
--- NOTE | 2019-04-23 16:26 | NUR ---
Per SABRINA Ramírez - hold off on transfer until room available at [facility] per BRYAN Gonzalez
--- NOTE | 2019-04-23 17:00 | NUR ---
Pt off unit with EMS crew and 3 family members, all pt belongings with pt
--- NOTE | 2019-04-23 17:10 | NUR ---
Report phoned to BRYAN Silva at [facility] at this time
== END 2019-04-23 17:00 | DRG 872 ==
LOC: COL.ER 23:25 → IMCU 04-20 02:21
PROVIDERS: Emergency Medicine; Nurse Practitioner Family; Physician Assistant; ADMIT Internal Medicine
DX: A41.81 Sepsis due to Enterococcus (principal); I13.0 Hypertensive heart and chronic kidney disease with heart failure and stage 1 through stage 4 chronic kidney disease, or unspecified chronic kidney disease; N39.0 Urinary tract infection, site not specified; N17.9 Acute kidney failure, unspecified; I50.32 Chronic diastolic (congestive) heart failure; L03.116 Cellulitis of left lower limb; L03.115 Cellulitis of right lower limb; E11.22 Type 2 diabetes mellitus with diabetic chronic kidney disease; R65.20 Severe sepsis without septic shock; M10.9 Gout, unspecified; E03.9 Hypothyroidism, unspecified; J44.9 Chronic obstructive pulmonary disease, unspecified; E78.5 Hyperlipidemia, unspecified; D69.6 Thrombocytopenia, unspecified; E11.40 Type 2 diabetes mellitus with diabetic neuropathy, unspecified; E66.01 Morbid (severe) obesity due to excess calories; G47.33 Obstructive sleep apnea (adult) (pediatric); D63.1 Anemia in chronic kidney disease; Z79.82 Long term (current) use of aspirin; Z79.4 Long term (current) use of insulin; Z86.718 Personal history of other venous thrombosis and embolism
CPT/HCPCS: 99223-AI; 99233-AI; 99239; J1644; J1815; J1956; J2020; J2405; J7030; J7040

== ENCOUNTER → 2019-07-22 | Outpatient (CLI) | payer MEDICARE, OTHER ==
[~2019-07-22] MED LIST changes: +ZYVOX PREM600 MG/300 IV
[2019-07-22 11:16] LABS: COLLECTION METHOD CLEAN CATCH
[2019-07-22 11:30] LABS: MUCOUS Present /lpf; PH 7 (5-8); SQUAMOUS EPITHELIAL 0-2 /hpf; URINE APPEARANCE Hazy; URINE BACTERIA Rare /hpf; URINE BILIRUBIN Negative (NEGATIVE); URINE BLOOD Negative (NEGATIVE); URINE COLOR Yellow; URINE GLUCOSE Negative (NEGATIVE); URINE KETONE Negative (NEGATIVE); URINE LEUKOCYTE ESTERASE 3+ (NEGATIVE); URINE NITRATE Negative (NEGATIVE); URINE PROTEIN(semi-quant) 2+ (NEGATIVE); URINE RBC 0-2 /hpf; URINE UROBILINOGEN Negative (NEGATIVE)
== END ==
LOC: ZLAB.STJ 11:08
PROVIDERS: Internal Medicine
DX: N39.0 Urinary tract infection, site not specified (principal)

== ENCOUNTER → 2019-07-31 | Outpatient (CLI) | payer MEDICARE, OTHER ==
[2019-07-31 11:43] LABS: COLLECTION METHOD CLEAN CATCH
[2019-07-31 12:03] LABS: AMORPHOUS CRYSTAL Present /uL; PH 6 (5-8); URINE APPEARANCE Cloudy; URINE BACTERIA None Seen /hpf; URINE BILIRUBIN Negative (NEGATIVE); URINE BLOOD Negative (NEGATIVE); URINE COLOR Yellow; URINE GLUCOSE Negative (NEGATIVE); URINE KETONE Negative (NEGATIVE); URINE LEUKOCYTE ESTERASE 3+ (NEGATIVE); URINE NITRATE Negative (NEGATIVE); URINE PROTEIN(semi-quant) 2+ (NEGATIVE); URINE RBC 0-2 /hpf; URINE UROBILINOGEN Negative (NEGATIVE)
== END ==
LOC: ZLAB.STJ 11:22
PROVIDERS: Internal Medicine
DX: N39.0 Urinary tract infection, site not specified (principal)

== ENCOUNTER → 2019-08-12 | Outpatient (CLI) | payer MEDICARE, OTHER ==
[2019-08-12 14:33] LABS: COLLECTION METHOD CLEAN CATCH
[2019-08-12 14:59] LABS: BUDDING YEAST Present /hpf; MUCOUS Present /lpf; PH 6 (5-8); URINE APPEARANCE Cloudy; URINE BACTERIA None Seen /hpf; URINE BILIRUBIN Negative (NEGATIVE); URINE BLOOD 1+ (NEGATIVE); URINE COLOR Yellow; URINE GLUCOSE Negative (NEGATIVE); URINE KETONE Negative (NEGATIVE); URINE LEUKOCYTE ESTERASE 3+ (NEGATIVE); URINE NITRATE Negative (NEGATIVE); URINE PROTEIN(semi-quant) 3+ (NEGATIVE); URINE UROBILINOGEN Negative (NEGATIVE)
== END ==
LOC: ZLAB.STJ 13:42
PROVIDERS: Internal Medicine
DX: N39.0 Urinary tract infection, site not specified (principal)

== ENCOUNTER → 2019-08-17 | Outpatient (CLI) | payer MEDICARE, OTHER ==
[2019-08-17 17:15] LABS: ALBUMIN 3.4 gm/dL (3.5-5.0); BILIRUBIN,TOTAL 0.4 mg/dL (0.0-1.0); CALCIUM 9.4 mg/dL (8.4-10.2); CREATININE, serum 1.07 (0.52-1.25); POTASSIUM 3.8 mmol/L (3.4-5.0); TOTAL PROTEIN 6.6 gm/dL (6.4-8.2)
== END ==
LOC: ZLAB.STJ 16:35
PROVIDERS: Internal Medicine Nephrology
DX: N18.3 Chronic kidney disease, stage 3 (moderate) (principal)

== ENCOUNTER → 2019-10-22 | Outpatient (CLI) | payer MEDICARE, OTHER ==
[2019-10-22 15:22] LABS: COLLECTION METHOD CLEAN CATCH
[2019-10-22 15:51] LABS: BUDDING YEAST Present /hpf; MUCOUS Present /lpf; PH 6 (5-8); SQUAMOUS EPITHELIAL 0-2 /hpf; URINE APPEARANCE Hazy; URINE BACTERIA Moderate /hpf; URINE BILIRUBIN Negative (NEGATIVE); URINE BLOOD Negative (NEGATIVE); URINE COLOR Yellow; URINE GLUCOSE Negative (NEGATIVE); URINE KETONE Negative (NEGATIVE); URINE LEUKOCYTE ESTERASE 3+ (NEGATIVE); URINE NITRATE Negative (NEGATIVE); URINE PROTEIN(semi-quant) 1+ (NEGATIVE); URINE UROBILINOGEN Negative (NEGATIVE)
== END ==
LOC: ZLAB.STJ 15:01
PROVIDERS: Internal Medicine
DX: N39.0 Urinary tract infection, site not specified (principal)

== ENCOUNTER → 2019-11-27 | Outpatient (CLI) | payer MEDICARE, OTHER ==
[2019-11-27 17:43] LABS: BASO # 0.1 (0.0-0.2); BASO % 0.6 % (0.0-2.0); EOS # 0.3 (0.0-0.7); EOS % 3.7 % (0-4.0); GRAN # 5.6 (1.4-6.5); GRAN % 61.4 % (42.2-75.2); HEMOGLOBIN 10.7 g/dl (12.5-16.0); LYMPH # 2.3 (1.2-3.4); LYMPH % 25.7 % (20.0-51.0); MEAN CELL VOLUME 94 fl (80.0-100.0); MEAN CORPUSCULAR HEMOGLOBIN 30 pg (27.0-31.0); MEAN CORPUSCULAR HGB CONC 33 g/dl (33.0-37.0); MEAN PLATELET VOLUME 12.1 fl (7.4-10.4); MONO # 0.8 (0.1-0.6); MONO % 8.3 % (1.7-9.3); PLATELET COUNT 182 K/mm3 (130-400); RED BLOOD COUNT 3.52 M/mm3 (4.10-5.30); REDCELL DISTRIBUTION WIDTH-CV 15.8 % (11.5-14.5)
[2019-11-27 17:44] LABS: HEMATOCRIT 32.9 % (37.0-47.0)
[2019-11-27 17:46] LABS: ALBUMIN 3.6 gm/dL (3.5-5.0); BILIRUBIN,TOTAL 0.6 mg/dL (0.0-1.0); C-REACTIVE PROTEIN 0.8 mg/dL (0.0-0.9); CALCIUM 9.5 mg/dL (8.4-10.2); CREATININE, serum 1.3 (0.52-1.25); POTASSIUM 3.2 mmol/L (3.4-5.0); TOTAL PROTEIN 6.5 gm/dL (6.4-8.2)
[2019-11-27 18:16] LABS: ERYTHROCYTE SEDIMENTATION RATE 21 mm/hr (0-30)
== END ==
LOC: ZLAB.STJ 15:33
PROVIDERS: Internal Medicine
DX: N18.3 Chronic kidney disease, stage 3 (moderate) (principal); D63.8 Anemia in other chronic diseases classified elsewhere; I50.32 Chronic diastolic (congestive) heart failure

== ENCOUNTER 2019-12-02 14:40 | Outpatient (RCR) | payer MEDICARE, OTHER | END 2020-02-20 15:01 | disposition home or self-care (01) | LOC: WSPT 14:40 | DX: E11.9 Type 2 diabetes mellitus without complications (principal); I89.0 Lymphedema, not elsewhere classified ==

== ENCOUNTER → 2019-12-23 | Outpatient (CLI) | payer MEDICARE, OTHER ==
[2019-12-23 03:59] LABS: CALCIUM 8.9 mg/dL (8.4-10.2); CREATININE, serum 1.64 (0.52-1.25)
== END ==
LOC: ZCOL.LAB 03:33
PROVIDERS: Internal Medicine Nephrology
DX: N18.30 Chronic kidney disease, stage 3 unspecified (principal)

== ENCOUNTER → 2019-12-25 | Outpatient (CLI) | payer MEDICARE, OTHER ==
[2019-12-25 13:23] LABS: BASO % 0.4 % (0.0-2.0); EOS # 0.2 (0.0-0.7); EOS % 1.5 % (0-4.0); GRAN % 65.4 % (42.2-75.2); HEMOGLOBIN 11.6 g/dl (12.5-16.0); LYMPH # 2.6 (1.2-3.4); LYMPH % 24.3 % (20.0-51.0); MEAN CELL VOLUME 94 fl (80.0-100.0); MEAN CORPUSCULAR HEMOGLOBIN 31 pg (27.0-31.0); MEAN CORPUSCULAR HGB CONC 33 g/dl (33.0-37.0); MEAN PLATELET VOLUME 12.2 fl (7.4-10.4); MONO # 0.9 (0.1-0.6); PLATELET COUNT 199 K/mm3 (130-400); RED BLOOD COUNT 3.79 M/mm3 (4.10-5.30); REDCELL DISTRIBUTION WIDTH-CV 15.4 % (11.5-14.5)
[2019-12-25 13:26] LABS: HEMATOCRIT 35.5 % (37.0-47.0)
[2019-12-25 13:29] LABS: ALBUMIN 3.6 gm/dL (3.5-5.0); BILIRUBIN,TOTAL 0.6 mg/dL (0.0-1.0); CALCIUM 9.2 mg/dL (8.4-10.2); CHOLESTEROL RISK RATIO 2.3; CREATININE, serum 1.33 (0.52-1.25); POTASSIUM 4.2 mmol/L (3.4-5.0); TOTAL PROTEIN 6.5 gm/dL (6.4-8.2); URIC ACID 6.2 mg/dL (2.5-6.2)
[2019-12-25 13:59] LABS: THYROID STIMULATING HORMONE 1.3 uIU/mL (0.465-4.680)
[2019-12-25 21:48] LABS: URINE MICROALBUMIN 21.6 mg/dL (0.0-1.7)
== END ==
LOC: ZLAB.STJ 13:00
PROVIDERS: Internal Medicine
DX: E11.21 Type 2 diabetes mellitus with diabetic nephropathy (principal); N18.32 Chronic kidney disease, stage 3b; E03.9 Hypothyroidism, unspecified; E79.0 Hyperuricemia without signs of inflammatory arthritis and tophaceous disease; Z79.4 Long term (current) use of insulin

== ENCOUNTER → 2020-03-08 | Outpatient (CLI) | payer MEDICARE, OTHER ==
[2020-03-08 15:51] LABS: COLLECTION METHOD CLEAN CATCH
[2020-03-08 16:18] LABS: MUCOUS Present /lpf; PH 6 (5-8); SQUAMOUS EPITHELIAL 0-2 /hpf; URINE APPEARANCE Hazy; URINE BACTERIA None Seen /hpf; URINE BILIRUBIN Negative (NEGATIVE); URINE BLOOD Negative (NEGATIVE); URINE COLOR Yellow; URINE GLUCOSE Negative (NEGATIVE); URINE KETONE Negative (NEGATIVE); URINE LEUKOCYTE ESTERASE 3+ (NEGATIVE); URINE NITRATE Positive (NEGATIVE); URINE PROTEIN(semi-quant) 1+ (NEGATIVE); URINE UROBILINOGEN Negative (NEGATIVE)
== END ==
LOC: ZLAB.STJ 14:56
PROVIDERS: Internal Medicine
DX: Z01.89 Encounter for other specified special examinations (principal)

== ENCOUNTER → 2020-03-28 | Outpatient (CLI) | payer MEDICARE, OTHER ==
[2020-03-28 18:19] LABS: COLLECTION METHOD CLEAN CATCH
[2020-03-28 18:46] LABS: PH 6 (5-8); URINE APPEARANCE Turbid; URINE BACTERIA Rare /hpf; URINE BILIRUBIN Negative (NEGATIVE); URINE BLOOD 1+ (NEGATIVE); URINE COLOR Yellow; URINE GLUCOSE Negative (NEGATIVE); URINE KETONE Negative (NEGATIVE); URINE LEUKOCYTE ESTERASE 3+ (NEGATIVE); URINE NITRATE Negative (NEGATIVE); URINE PROTEIN(semi-quant) 1+ (NEGATIVE); URINE RBC 20-50 /hpf; URINE UROBILINOGEN Negative (NEGATIVE)
== END ==
LOC: ZLAB.STJ 14:14
PROVIDERS: Internal Medicine
DX: N39.0 Urinary tract infection, site not specified (principal)

== ENCOUNTER → 2020-04-22 | Outpatient (CLI) | payer MEDICARE, OTHER ==
[2020-04-22 14:26] LABS: CALCIUM 9.4 mg/dL (8.4-10.2); CREATININE, serum 1.48 (0.52-1.25); POTASSIUM 3.6 mmol/L (3.4-5.0); THYROID STIMULATING HORMONE 2.05 uIU/mL (0.465-4.680)
== END ==
LOC: ZLAB.STJ 13:58
PROVIDERS: Internal Medicine
DX: N18.32 Chronic kidney disease, stage 3b (principal); E03.9 Hypothyroidism, unspecified

== ENCOUNTER → 2020-06-20 | Outpatient (CLI) | payer MEDICARE, OTHER ==
[2020-06-20 19:07] LABS: CALCIUM 9.8 mg/dL (8.4-10.2); CREATININE, serum 1.35 (0.52-1.25); POTASSIUM 3.1 mmol/L (3.4-5.0)
== END ==
LOC: ZLAB.STJ 16:52
PROVIDERS: Internal Medicine Nephrology
DX: N18.30 Chronic kidney disease, stage 3 unspecified (principal)

== ENCOUNTER → 2020-07-29 | Outpatient (CLI) | payer MEDICARE, OTHER ==
[2020-07-29 17:08] LABS: CALCIUM 9.3 mg/dL (8.4-10.2); CREATININE, serum 1.39 (0.52-1.25)
== END ==
LOC: ZCOL.LAB 16:07
PROVIDERS: Internal Medicine
DX: E11.65 Type 2 diabetes mellitus with hyperglycemia (principal); E11.22 Type 2 diabetes mellitus with diabetic chronic kidney disease; N18.30 Chronic kidney disease, stage 3 unspecified

== ENCOUNTER → 2020-08-11 | Outpatient (REF) | LOC: ZLAB.STJ 16:07 | DX: N18.30 Chronic kidney disease, stage 3 unspecified (principal) ==

== ENCOUNTER → 2020-08-18 | Outpatient (REF) ==
[2020-08-18 16:05] LABS: BASO # 0.1 (0.0-0.2); BASO % 0.6 % (0.0-2.0); EOS # 0.4 (0.0-0.7); GRAN # 5.2 (1.4-6.5); GRAN % 56.5 % (42.2-75.2); HEMOGLOBIN 11.4 g/dl (12.5-16.0); LYMPH # 2.8 (1.2-3.4); MEAN CELL VOLUME 92 fl (80.0-100.0); MEAN CORPUSCULAR HEMOGLOBIN 31 pg (27.0-31.0); MEAN CORPUSCULAR HGB CONC 33 g/dl (33.0-37.0); MEAN PLATELET VOLUME 11.7 fl (7.4-10.4); MONO # 0.8 (0.1-0.6); MONO % 8.3 % (1.7-9.3); PLATELET COUNT 169 K/mm3 (130-400); RED BLOOD COUNT 3.72 M/mm3 (4.10-5.30); REDCELL DISTRIBUTION WIDTH-CV 15.8 % (11.5-14.5)
[2020-08-18 16:06] LABS: HEMATOCRIT 34.3 % (37.0-47.0)
[2020-08-18 16:16] LABS: ALANINE AMINOTRANSFERASE 16 U/L (4-34); ALBUMIN 3.8 gm/dL (3.5-5.0); ALKALINE PHOSPHATASE 87 U/L (50-136); ANION GAP 6 mmol/L (7-16); AST,SGOT 29 U/L (15-37); BILIRUBIN,TOTAL 0.5 mg/dL (0.0-1.0); BLOOD UREA NITROGEN 36 mg/dL (7-17); CALCIUM 9.3 mg/dL (8.4-10.2); CARBON DIOXIDE 32 mmol/L (22-30); CHLORIDE 98 mmol/L (98-107); CREATININE, serum 1.35 (0.52-1.25); GLUCOSE 200 mg/dL (74-106); POTASSIUM 3.5 mmol/L (3.4-5.0); SODIUM 136 mmol/L (137-145)
[2020-08-18 16:17] LABS: C-REACTIVE PROTEIN < 0.5 mg/dL (0.0-0.9)
[2020-08-18 16:30] LABS: ERYTHROCYTE SEDIMENTATION RATE 31 mm/hr (0-30)
== END ==
LOC: ZLAB.STJ 16:00
PROVIDERS: Internal Medicine
DX: N18.30 Chronic kidney disease, stage 3 unspecified (principal)

== ENCOUNTER → 2020-09-15 | Outpatient (CLI) | payer MEDICARE, OTHER ==
[2020-09-15 18:40] LABS: CALCIUM 9.3 mg/dL (8.4-10.2); CREATININE, serum 1.68 (0.52-1.25); POTASSIUM 3.7 mmol/L (3.4-5.0)
== END ==
LOC: COL.LAB 18:18
PROVIDERS: Internal Medicine
DX: N18.30 Chronic kidney disease, stage 3 unspecified (principal)

== ENCOUNTER → 2020-11-04 | Outpatient (CLI) | payer MEDICARE, OTHER ==
[2020-11-04 15:58] LABS: COLLECTION METHOD CLEAN CATCH
[2020-11-04 16:34] LABS: PH 6 (5-8); SQUAMOUS EPITHELIAL 0-2 /hpf; URINE APPEARANCE Cloudy; URINE BACTERIA None Seen /hpf; URINE BILIRUBIN Negative (NEGATIVE); URINE BLOOD Negative (NEGATIVE); URINE COLOR Yellow; URINE GLUCOSE Negative (NEGATIVE); URINE KETONE Negative (NEGATIVE); URINE LEUKOCYTE ESTERASE 3+ (NEGATIVE); URINE NITRATE Negative (NEGATIVE); URINE PROTEIN(semi-quant) 1+ (NEGATIVE); URINE UROBILINOGEN Negative (NEGATIVE); URINE WBC >50 /hpf
== END ==
LOC: ZLAB.STJ 15:55
PROVIDERS: Internal Medicine
DX: N39.0 Urinary tract infection, site not specified (principal)

== ENCOUNTER → 2020-11-23 | Outpatient (CLI) | payer MEDICARE, OTHER ==
[2020-11-23 12:07] LABS: CALCIUM 9.4 mg/dL (8.4-10.2); CREATININE, serum 2.06 (0.52-1.25); POTASSIUM 4.2 mmol/L (3.4-5.0)
== END ==
LOC: ZCOL.LAB 11:49
PROVIDERS: Internal Medicine Nephrology
DX: N18.30 Chronic kidney disease, stage 3 unspecified (principal)

== ENCOUNTER → 2020-12-05 | Outpatient (CLI) | payer MEDICARE, OTHER | LOC: ZLAB.STJ 10:39 | DX: E11.22 Type 2 diabetes mellitus with diabetic chronic kidney disease (principal) ==

== ENCOUNTER → 2020-12-19 | Outpatient (CLI) | payer MEDICARE, OTHER | LOC: COL.RAD 11:49 | DX: M81.0 Age-related osteoporosis without current pathological fracture (principal) ==

== ENCOUNTER → 2020-12-22 | Outpatient (CLI) | payer MEDICARE, OTHER ==
[2020-12-22 13:45] LABS: CALCIUM 9.6 mg/dL (8.4-10.2); CREATININE, serum 2.45 mg/dL (0.57-1.11); POTASSIUM 3.9 mmol/L (3.5-4.5)
== END ==
LOC: ZLAB.STJ 12:53
PROVIDERS: Internal Medicine Nephrology
DX: N18.30 Chronic kidney disease, stage 3 unspecified (principal)

== ENCOUNTER → 2021-01-11 | Outpatient (CLI) | payer MEDICARE, OTHER | LOC: ZLAB.STJ 17:32 | DX: E03.9 Hypothyroidism, unspecified (principal) ==

== ENCOUNTER → 2021-03-06 | Outpatient (CLI) | payer MEDICARE, OTHER ==
[2021-03-06 18:48] LABS: CALCIUM 9.1 mg/dL (8.4-10.2); CREATININE, serum 1.69 mg/dL (0.57-1.11); POTASSIUM 4.2 mmol/L (3.5-4.5)
== END ==
LOC: ZLAB.STJ 18:40
PROVIDERS: Internal Medicine
DX: E11.40 Type 2 diabetes mellitus with diabetic neuropathy, unspecified (principal); N18.30 Chronic kidney disease, stage 3 unspecified

== ENCOUNTER → 2021-04-07 | Outpatient (CLI) | payer MEDICARE, OTHER | LOC: COL.RAD 15:26 | DX: I51.7 Cardiomegaly (principal) ==

== ENCOUNTER → 2021-04-10 | Outpatient (CLI) | payer MEDICARE, OTHER | LOC: ZLAB.STJ 16:20 | DX: E03.9 Hypothyroidism, unspecified (principal) ==

== ENCOUNTER → 2021-04-13 | Outpatient (CLI) | payer MEDICARE, OTHER ==
[2021-04-13 16:29] LABS: CALCIUM 9.2 mg/dL (8.4-10.2); CREATININE, serum 1.72 mg/dL (0.57-1.11); POTASSIUM 3.9 mmol/L (3.5-4.5)
== END ==
LOC: ZLAB.STJ 16:10
PROVIDERS: Internal Medicine
DX: I51.7 Cardiomegaly (principal)

== ENCOUNTER → 2021-06-07 | Outpatient (CLI) | payer MEDICARE, OTHER | LOC: ZLAB.STJ 10:42 | DX: E11.9 Type 2 diabetes mellitus without complications (principal) ==

== ENCOUNTER → 2021-10-03 | Outpatient (CLI) | payer MEDICARE, OTHER ==
[~2021-10-03] MED LIST changes: +COREG 6.256.25 MG/TA PO; +DESYREL 100MG100 MG PO; +HUMALOG100 U/ML SQ; +IPRATROPIUM BROM3 M1 IH; +KLOR-CON SPRIN10 MEQ PO; +MIRALAX PA17 GM/Dose PO; +NATURAL SENNA8.6 MG PO; +NORVASC 5MG5 MG/TAB PO; +PEPCID 20MG TAB20 MG PO; +PREDNISONE50 MG PO; +PRINIVIL20 MG PO; +PROTONIX 40MG T40 MG PO; +VITAMIN D31000 I1 PO
== END ==
LOC: COL.VAS 09:44
DX: I27.20 Pulmonary hypertension, unspecified (principal); G47.33 Obstructive sleep apnea (adult) (pediatric)

== ENCOUNTER 2021-10-06 13:43 | Emergency (ER) | payer MEDICARE, OTHER ==
[~2021-10-06] VITALS: Ht 154.9 cm; Wt 126.8 kg
[~2021-10-06 13:43] MED LIST changes: -COREG 6.256.25 MG/TA PO; -DESYREL 100MG100 MG PO; -HUMALOG100 U/ML SQ; -IPRATROPIUM BROM3 M1 IH; -KLOR-CON SPRIN10 MEQ PO; -MIRALAX PA17 GM/Dose PO; -NATURAL SENNA8.6 MG PO; -NORVASC 5MG5 MG/TAB PO; -PEPCID 20MG TAB20 MG PO; -PREDNISONE50 MG PO; -PRINIVIL20 MG PO; -PROTONIX 40MG T40 MG PO; -VITAMIN D31000 I1 PO
[2021-10-06 14:29] VITALS: TEMP 97.7
[2021-10-06] MEDS ORDERED: PROAIR HFA0.09 MG/AC IH (15:46)
[2021-10-06] MEDS ORDERED: LEVAQUIN 750MG750 M1 PO (15:46)
[2021-10-06] MEDS ORDERED: PREDNISONE50 MG PO (15:46)
[2021-10-06 15:48] LABS: BASO % 0.5 % (0.0-2.0); EOS # 0.4 K/mm3 (0.0-0.7); EOS % 4.9 % (0.0-4.0); GRAN # 4.4 K/mm3 (1.4-6.5); GRAN % 50.8 % (42.2-75.2); HEMOGLOBIN 10.2 g/dl (12.5-16.0); LYMPH # 2.9 K/mm3 (1.2-3.4); LYMPH % 33.1 % (20.0-51.0); MEAN CELL VOLUME 93 fl (80.0-100.0); MEAN CORPUSCULAR HEMOGLOBIN 31 pg (27-31); MEAN CORPUSCULAR HGB CONC 33 g/dl (33.0-37.0); MEAN PLATELET VOLUME 10.2 fl (7.4-10.4); MONO # 0.9 K/mm3 (0.1-0.6); MONO % 10.4 % (1.7-9.3); PLATELET COUNT 174 K/mm3 (130-400); RED BLOOD COUNT 3.33 M/mm3 (4.10-5.30); REDCELL DISTRIBUTION WIDTH-CV 15.5 % (11.5-14.5)
[2021-10-06 15:49] LABS: HEMATOCRIT 31.1 % (37.0-47.0)
[2021-10-06 16:05] LABS: BILIRUBIN,TOTAL 0.3 mg/dL (0.2-1.2); CALCIUM 8.9 mg/dL (8.4-10.2); CREATININE, serum 1.9 mg/dL (0.57-1.11); POTASSIUM 4.9 mmol/L (3.5-4.5); TOTAL PROTEIN 6.6 gm/dL (6.2-8.1)
[2021-10-06 17:56] VITALS: BP 156/67; PULSE 67
== END 2021-10-06 18:10 | disposition home or self-care (01) ==
LOC: COL.ER 13:43
PROVIDERS: Emergency Medicine
DX: J20.9 Acute bronchitis, unspecified (principal); E66.01 Morbid (severe) obesity due to excess calories
CPT/HCPCS: J7512

== ENCOUNTER 2021-10-16 11:51 | Emergency (ER) | payer MEDICARE, OTHER ==
[~2021-10-16] VITALS: Ht 154.9 cm; Wt 127.3 kg
[~2021-10-16 11:51] MED LIST changes: +PREDNISONE50 MG PO
[2021-10-16 12:23] VITALS: TEMP 97.7
[2021-10-16 13:39] LABS: BASO % 0.4 % (0.0-2.0); EOS # 0.6 K/mm3 (0.0-0.7); EOS % 5.2 % (0.0-4.0); GRAN # 6.9 K/mm3 (1.4-6.5); GRAN % 65.1 % (42.2-75.2); HEMOGLOBIN 10.1 g/dl (12.5-16.0); LYMPH # 1.7 K/mm3 (1.2-3.4); LYMPH % 15.6 % (20.0-51.0); MEAN CELL VOLUME 95 fl (80.0-100.0); MEAN CORPUSCULAR HEMOGLOBIN 31 pg (27-31); MEAN CORPUSCULAR HGB CONC 32 g/dl (33.0-37.0); MEAN PLATELET VOLUME 10.9 fl (7.4-10.4); MONO # 1.4 K/mm3 (0.1-0.6); MONO % 13.2 % (1.7-9.3); PLATELET COUNT 153 K/mm3 (130-400); REDCELL DISTRIBUTION WIDTH-CV 16.6 % (11.5-14.5)
[2021-10-16 13:40] LABS: HEMATOCRIT 31.2 % (37.0-47.0)
[2021-10-16 13:55] LABS: ALANINE AMINOTRANSFERASE 12 U/L (0-55); ALKALINE PHOSPHATASE 83 U/L (40-150); ANION GAP 10 mmol/L (7-16); AST,SGOT 12 U/L (5-34); BILIRUBIN,TOTAL 0.5 mg/dL (0.2-1.2); BLOOD UREA NITROGEN 67 mg/dL (10-20); CALCIUM 8.9 mg/dL (8.4-10.2); CARBON DIOXIDE 25 mmol/L (23-31); CHLORIDE 106 mmol/L (98-107); CREATININE, serum 2.14 mg/dL (0.57-1.11); GLUCOSE 139 mg/dL (70-99); POTASSIUM 4.9 mmol/L (3.5-4.5); SODIUM 141 mmol/L (136-145); TOTAL PROTEIN 6.2 gm/dL (6.2-8.1)
[2021-10-16 14:06] LABS: TROPONIN-I < 0.010 ng/mL (0.00-0.033)
[2021-10-16 14:07] LABS: COLLECTION METHOD CLEAN CATCH
[2021-10-16 14:30] VITALS: BP 109/60; PULSE 63
[2021-10-16 14:33] LABS: SQUAMOUS EPITHELIAL 0-2 /hpf (0-10); URINE BACTERIA None Seen /hpf (NONE SEEN); URINE RBC 0-2 /hpf (0-2)
[2021-10-16 14:34] LABS: PH 5.5 (5.0-8.5); URINE APPEARANCE Clear (CLEAR/HAZY); URINE COLOR Yellow (YELLOW); URINE GLUCOSE Negative (NEGATIVE); URINE KETONE Negative (NEGATIVE); URINE PROTEIN(semi-quant) Negative (NEGATIVE)
[2021-10-16 14:35] LABS: URINE BLOOD Negative (NEGATIVE); URINE NITRATE Negative (NEGATIVE); URINE UROBILINOGEN 0.2 E.U/dL (0.2-1.0)
[2021-10-16] MEDS ORDERED: PEPCID 20MG TAB20 MG PO (15:16)
[2021-10-16] MEDS ORDERED: NORVASC 5MG5 MG/TAB PO (15:16)
[2021-10-16] MEDS ORDERED: CLARITIN 1010 MG/TAB PO (15:19)
[2021-10-16] MEDS ORDERED: PROTONIX 40MG T40 MG PO (15:19)
[2021-10-16] MEDS ORDERED: MIRALAX PA17 GM/Dose PO (15:20)
[2021-10-16] MEDS ORDERED: NATURAL SENNA8.6 MG PO (15:21)
[2021-10-16] MEDS ORDERED: COREG 6.256.25 MG/TA PO (15:22)
[2021-10-16] MEDS ORDERED: SPIRIVA RE2.5 MCG/Ac IH (15:24)
[2021-10-16] MEDS ORDERED: RT ADVAIR HFA 2312 G IH (15:24)
[2021-10-16] MEDS ORDERED: ZYLOPRIM 100MG100 MG PO (15:26)
[2021-10-16] MEDS ORDERED: CLEOCIN HCL300 MG PO (15:26)
[2021-10-16] MEDS ORDERED: VITAMIN D31000 I1 PO (15:27)
[2021-10-16] MEDS ORDERED: KLOR-CON SPRIN10 MEQ PO (15:27)
[2021-10-16] MEDS ORDERED: HUMALOG100 U/ML SQ (15:28)
[2021-10-16] MEDS ORDERED: DEMADEX 20MG20 M1 PO (15:29)
[2021-10-16] MEDS ORDERED: DESYREL 100MG100 MG PO (15:30)
[2021-10-16] MEDS ORDERED: PRINIVIL20 MG PO (15:30)
[2021-10-16] MEDS ORDERED: NEURONTIN300 MG/CAP PO (15:31)
[2021-10-16] MEDS ORDERED: ZAROXOLYN 2.52.5 MG PO (15:32)
[2021-10-17] MEDS ORDERED: IPRATROPIUM BROM3 M1 IH (10:53)
[2021-10-17] MEDS ORDERED: CLEOCIN HCL300 MG PO (12:16)
== END 2021-10-16 16:15 | disposition home or self-care (01) ==
LOC: COL.ER 11:51
PROVIDERS: Emergency Medicine
DX: J18.9 Pneumonia, unspecified organism (principal); I95.9 Hypotension, unspecified; J81.1 Chronic pulmonary edema; I51.7 Cardiomegaly; E66.01 Morbid (severe) obesity due to excess calories; Z68.43 Body mass index [BMI] 50.0-59.9, adult; Z88.0 Allergy status to penicillin; Z20.822 Contact with and (suspected) exposure to COVID-19

== ENCOUNTER 2021-10-17 09:30 | Emergency (ER) | payer MEDICARE, OTHER ==
[~2021-10-17] VITALS: Ht 154.9 cm; Wt 113.6 kg
[~2021-10-17 09:30] MED LIST changes: -IPRATROPIUM BROM3 M1 IH
[2021-10-17] MEDS ORDERED: IPRATROPIUM BROM3 M1 IH (10:53)
[2021-10-17 11:40] VITALS: BP 136/82; PULSE 63; TEMP 97.8
[2021-10-17] MEDS ORDERED: CLEOCIN HCL300 MG PO (12:16)
== END 2021-10-17 11:40 ==
LOC: COL.ER 09:30
DX: J44.9 Chronic obstructive pulmonary disease, unspecified (principal); E66.01 Morbid (severe) obesity due to excess calories; Z68.42 Body mass index [BMI] 45.0-49.9, adult; Z88.0 Allergy status to penicillin; Z99.81 Dependence on supplemental oxygen

== ENCOUNTER → 2021-10-17 | Outpatient (CLI) | payer MEDICARE, OTHER ==
[~2021-10-17] MED LIST changes: +COREG 6.256.25 MG/TA PO; +DESYREL 100MG100 MG PO; +HUMALOG100 U/ML SQ; +IPRATROPIUM BROM3 M1 IH; +KLOR-CON SPRIN10 MEQ PO; +MIRALAX PA17 GM/Dose PO; +NATURAL SENNA8.6 MG PO; +NORVASC 5MG5 MG/TAB PO; +PEPCID 20MG TAB20 MG PO; +PRINIVIL20 MG PO; +PROTONIX 40MG T40 MG PO; +VITAMIN D31000 I1 PO
== END ==
LOC: ZLAB.STJ 16:29
DX: J22 Unspecified acute lower respiratory infection (principal)